=== PATIENT | female | born 1950 | race Caucasian/White ===

== ENCOUNTER → 2018-01-05 11:52 | Outpatient (CLI) | payer MEDICARE, SELFPAY ==
[2018-01-05 17:57] LABS: Basophils % 0.5 % (0.1-2.0); Eosinophils # 0.3 K/mm3 (0.0-0.4); Eosinophils % 4.2 % (0.1-12.0); Hematocrit 42.1 % (37.0-47.0); Hemoglobin 13.5 g/dL (12.2-16.2); Lymphocytes # 1.7 K/mm3 (0.7-4.5); Lymphocytes % 28.7 K/mm3 (10-50); Mean Corpuscular HGB Conc 32.1 g/dL (31.8-35.4); Mean Corpuscular Hemoglobin 29.5 pg (27.0-31.2); Mean Platelet Volume 9.7 fl (7.4-10.4); Monocytes # 0.6 K/mm3 (0.1-1.0); Monocytes % 9.5 % (1.7-9.3); Neutrophils # 3.5 K/mm3 (1.8-7.8); Platelet Count 282 K/mm3 (142-424); Red Blood Count 4.57 M/mm3 (4.20-5.40); Red Cell Distribution Width 13.2 % (11.5-17.5); White Blood Count 6.1 K/mm3 (4.8-10.8)
[2018-01-05 19:32] LABS: Erythrocyte Sedimentation Rate 24 mm/hr (0-30)
[2018-01-05 20:25] LABS: Alanine Aminotransferase 50 U/L (12-78); Albumin Level 4.2 gm/dL (3.4-5.0); Albumin/Globulin Ratio 1.2 (1.1-1.8); Alkaline Phosphatase 98 U/L (46-116); Anion Gap 12.1 mEq/L (5-15); Aspartate Amino Transferase 28 U/L (15-37); Bilirubin,Total 0.3 mg/dL (0.2-1.0); Blood Urea Nitrogen 22 mg/dL (7-18); C-Reactive Protein 0.6 mg/L (0.0-0.9); Carbon Dioxide 28 mmol/L (21.0-32.0); Chloride 102 mmol/L (98-107); Chol/HDL Ratio 6.3 (1-3.5); Cholesterol 279 mg/dL (140-200); Estimated Glomerular Filt Rate 55 ml/min (>60); Free T4 (Free Thyroxine) 0.97 ng/dl (0.76-1.46); GFR (African American) 67 ML/MIN (>60); Globulin 3.5 gm/dl (1.3-3.2); Glucose 160 mg/dL (74-106); HDL Cholesterol 44 mg/dL (29-89); LDL Cholesterol 161 mg/dL (0-130); Potassium 4.1 mmoL/L (3.5-5.1); Sodium 138 mmol/L (136-145); Thyroid Stimulating Hormone 1.59 uIU/ml (0.358-3.740); Total Protein,Serum 7.7 gm/dL (6.4-8.2); Triglycerides 369 mg/dL (30-200); VLDL Cholesterol 74 mg/dL (0-40)
[2018-01-08 09:48] LABS: RA Latex Turbid. <10.0 IU/mL (0.0-13.9)
[2018-01-08 11:11] LABS: Anti-Jo-1 <0.2 AI (0.0-0.9); Anti-Smith Antibody <0.2 AI (0.0-0.9); Antichromatin Antibodies <0.2 AI (0.0-0.9); Antiscleroderma-70 Antibodies <0.2 AI (0.0-0.9); RNP Antibodies <0.2 AI (0.0-0.9); Sjogren's Anti-SS-A <0.2 AI (0.0-0.9); Sjogren's Anti-SS-B <0.2 AI (0.0-0.9)
[2018-01-09 09:18] LABS: Anti-Centromere B Antibodies <0.2 AI (0.0-0.9); Anti-DNA (DS) Ab Qn 1 IU/mL (0-9)
[2018-01-11 08:02] LABS: Anti-Cyclic Citrullinated Pept 8 units (0-19)
== END ==
PROVIDERS: Visit Provider Emergency Medicine
DX: G62.9 Polyneuropathy, unspecified (principal); F32.9 Major depressive disorder, single episode, unspecified; I10 Essential (primary) hypertension
CPT/HCPCS: 80053; 80061; 84439; 84443; 85025; 85651; 86140; 86200; 86225; 86235; 86431

== ENCOUNTER → 2018-01-19 08:48 | Outpatient (CLI) | payer MEDICARE, SELFPAY ==
--- NOTE | 2018-01-19 08:51 | MR_ITS ---
MR lumbar spine wo con, MR 3-d myelogram/MRCP HISTORY: Back pain, weakness, tingling, and weakness. Symptoms XYrs. ITS.REASON: back pain ORDERING PHYSICIAN: Anoop Dalton MD PATIENT AGE: 67 years Comparison: MRI 12/26/16 TECHNIQUE: Standard multiplanar multiecho sequences are performed without contrast. 3-D MIP and myelographic images are also rendered and reviewed FINDINGS: Spinal cord ends at the T11-T12 level. T12-L1: There is very minimal central disc protrusion without impingement. L1-L2: Minimal broad-based right paracentral disc protrusion without impingement. L2-L3: Unremarkable. L3-L4: Mild facet and ligamentum flavum hypertrophy with mild bilateral foraminal narrowing. L4-5: 4 mm anterolisthesis of L4 with minimal bulging disc along with facet and ligamentum flavum hypertrophy with moderate bilateral foraminal narrowing L5-S1: Small concentric bulging disc with minimal broad-based left paracentral disc protrusion abutting the anteromedial aspect of the left S1 nerve root without displacement. IMPRESSION: 1. No disc herniation or canal stenosis 2. L3-L4: Mild facet and ligamentum flavum hypertrophy with mild bilateral foraminal narrowing not significant changed 3. L4-5: 4 mm anterolisthesis of L4 with minimal bulging disc along with facet and ligamentum flavum hypertrophy with moderate bilateral foraminal narrowing not significant changed 4. L5-S1: Small concentric bulging disc with minimal broad-based left paracentral disc protrusion abutting the anteromedial aspect of the left S1 nerve root without displacement. This is not readily apparent on previous exam IMPRESSION:
== END ==
PROVIDERS: Family Provider Emergency Medicine; PCP Emergency Medicine; Visit Provider Emergency Medicine
DX: M54.5 Low back pain (principal); G62.9 Polyneuropathy, unspecified
CPT/HCPCS: 72148; 76376

== ENCOUNTER → 2018-02-05 09:43 | Outpatient (CLI) | payer MEDICARE, OTHER, SELFPAY ==
--- NOTE | 2018-02-05 09:45 | FL_ITS ---
NH barium swallow Ordering Physician: Anoop Dalton MD Patient Age: 67 years: Female HISTORY: ITS.REASON: dysphagia dysphasia and vomiting 2 years. TECHNIQUE: A barium swallow performed with Dr. Mercedes mcdonald. At 1 minute 24 seconds fluoroscopy time COMPARISON :None FINDINGS Cervical esophagus. Good strength the swallowing mechanism. Mild cricopharyngeus muscle relaxes appropriately. Only minor anterior marginal osteophytes C5-C6 does not appear to be of significance. The patient describes restriction when she eats food at the lower cervical esophagus upper chest. This region fully distensible with no restricting, or restricting lesion. No AVN vessels impinging upon esophagus evident. Thoracic esophagus. There is a small sliding hiatal hernia which was exchanged with Valsalva maneuver. Schatzki ring yields only slight narrowing the esophageal lumen here at the esophagus Z line . Doubt significance but could yield some minor restriction with solid food Mild GE reflux noted towards into the study. IMPRESSION: 1. No lesions evident at the lower cervical or upper thoracic esophagus-where the patient reports her symptoms 2. Moderate cricopharyngeus muscle is noted, but relaxes appropriately and appears within normal limits Good strength of the swallowing mechanism cervical esophagus 3. Small slight hiatal hernia with moderate Schatzki ring 4. Scant distal GE reflux observed at end of study
== END ==
PROVIDERS: Family Provider Emergency Medicine; PCP Emergency Medicine; Visit Provider Emergency Medicine
DX: R13.10 Dysphagia, unspecified (principal)
CPT/HCPCS: 74220

== ENCOUNTER → 2018-06-22 18:15 | Outpatient (CLI) | payer MEDICARE, OTHER, SELFPAY ==
[2018-06-22 19:16] LABS: Alanine Aminotransferase 43 U/L (12-78); Albumin Level 4.2 gm/dL (3.4-5.0); Albumin/Globulin Ratio 1.2 (1.1-1.8); Alkaline Phosphatase 93 U/L (46-116); Anion Gap 15.5 mEq/L (5-15); Aspartate Amino Transferase 19 U/L (15-37); Bilirubin,Total 0.4 mg/dL (0.2-1.0); Blood Urea Nitrogen 19 mg/dL (7-18); Calcium 9.6 mg/dL (8.5-10.1); Carbon Dioxide 28 mmol/L (21.0-32.0); Chloride 101 mmol/L (98-107); Chol/HDL Ratio 6.1 (1-3.5); Cholesterol 299 mg/dL (140-200); Creatinine,Serum 0.97 mg/dL (0.55-1.02); Estimated Glomerular Filt Rate 57 ml/min (>60); Free T4 (Free Thyroxine) 0.94 ng/dl (0.76-1.46); GFR (African American) 69 ML/MIN (>60); Globulin 3.6 gm/dl (1.3-3.2); Glucose 170 mg/dL (74-106); HDL Cholesterol 49 mg/dL (29-89); Potassium 4.5 mmoL/L (3.5-5.1); Sodium 140 mmol/L (136-145); Thyroid Stimulating Hormone 1.59 uIU/ml (0.358-3.740); Total Protein,Serum 7.8 gm/dL (6.4-8.2)
[2018-06-22 19:20] LABS: Basophils % 0.5 % (0.1-2.0); Eosinophils # 0.2 K/mm3 (0.0-0.4); Eosinophils % 3.6 % (0.1-12.0); Hematocrit 39.8 % (37.0-47.0); Hemoglobin 13.5 g/dL (12.2-16.2); Lymphocytes # 1.5 K/mm3 (0.7-4.5); Lymphocytes % 26.4 % (10-50); Mean Corpuscular Hemoglobin 31.6 pg (27.0-31.2); Mean Corpuscular Volume 93.2 fl (81-99); Mean Platelet Volume 9.3 fl (7.4-10.4); Monocytes # 0.5 K/mm3 (0.1-1.0); Monocytes % 8.3 % (1.7-9.3); Neutrophils # 3.5 K/mm3 (1.8-7.8); Neutrophils % 61.1 % (37.0-80.0); Platelet Count 313 K/mm3 (142-424); Red Blood Count 4.27 M/mm3 (4.20-5.40); Red Cell Distribution Width 13.3 % (11.5-17.5); White Blood Count 5.8 K/mm3 (4.8-10.8)
[2018-06-22 19:38] LABS: Triglycerides 442 mg/dL (30-200)
[2018-06-25 14:00] LABS: Vitamin D 25 Hydroxy 15.7 ng/mL (30.0-100.0)
== END ==
PROVIDERS: Visit Provider Emergency Medicine
DX: I10 Essential (primary) hypertension (principal)
CPT/HCPCS: 80053; 80061; 82652; 84439; 84443; 85025

== ENCOUNTER → 2018-06-30 08:49 | Outpatient (CLI) | payer MEDICARE, OTHER, SELFPAY ==
[2018-06-30 09:45] LABS: Hemoglobin A1C 6.6 % (0.0-7.0)
== END ==
PROVIDERS: Visit Provider Physician Assistant
DX: R73.9 Hyperglycemia, unspecified (principal)
CPT/HCPCS: 36415; 83036

== ENCOUNTER 2018-10-17 08:32 | Inpatient (IN) ==
--- NOTE | 2018-10-17 09:02 | Emergency Department Note ---
ED Disposition Instructions: DI for Diarrhea and Traveler's Diarrhea -- Adult, DI for Diarrhea and Traveler's Diarrhea -- Child, DI for Nausea -- Adult, DI for Nausea -- Child Referrals: Anoop Dalton MD [Primary Care Provider] - Attestation: On 10/17/18, the high probability of a clinically significant, sudden or life threatening deterioration of the following system(s) required my full and direct attention, intervention and personal management. The time I documented below is in addition to time spent performing reported procedures but includes the following listed in this critical care notation. Medical Decision Making - Abelardo Inquiry Pt receiving controlled substance: Yes Abelardo was queried for this patient: Yes Reference #:: [id number] Vital Signs: 10/17/18 08:47 10/17/18 08:53 10/17/18 09:03 Temperature 98.3 F Temperature Source Oral Pulse Rate [Left Apical] 75 86 74 Respiratory Rate 18 Blood Pressure [Right Arm] 161/90 H 150/86 H Blood Pressure Mean [Right Arm] 113 107 Blood Pressure Source [Right Arm] Automatic Cuff Blood Pressure Position [Right Arm] 02 Sat by Pulse Oximetry 95 92 L 93 L Oxygen Delivery Method Room Air Room Air Room Air 10/17/18 09:34 Temperature Temperature Source Pulse Rate [Left Apical] 86 Respiratory Rate Blood Pressure [Right Arm] 174/107 H Blood Pressure Mean [Right Arm] 129 Blood Pressure Source [Right Arm] Automatic Cuff Blood Pressure Position [Right Arm] Sitting 02 Sat by Pulse Oximetry 93 L Oxygen Delivery Method Room Air - Lab Data Lab Results 10/17/18 08:43: WBC 11.0 H, RBC 3.92 L, Hgb 12.5, Hct 35.1 L, MCV 89.7, MCH 31.8 H, MCHC 35.5 H, RDW 13.1, Plt Count 315, MPV 7.9, Neut % (Auto) 75.4, Lymph % (Auto) 15.2, [place] % (Auto) 6.8, Eos % (Auto) 2.3, Baso % (Auto) 0.4, Neut # (Auto) 8.3 H, Lymph # (Auto) 1.7, [place] # (Auto) 0.8, Eos # (Auto) 0.3, Baso # (Auto) 0.0 10/17/18 08:43: Sodium 135 L, Potassium 3.6, Chloride 97 L, Carbon Dioxide 28, Anion Gap 13.6, BUN 12 D, Creatinine 0.97, Estimated Creat Clear 72, Estimated GFR 57 L, Est GFR ( Amer) 69 D, Glucose 168 H, Calcium 9.0, Total Bilirubin 0.4, AST 139 H, ALT 179 H, Alkaline Phosphatase 144 H, Total Protein 8.0, Albumin 3.4, Globulin 4.6 H, Albumin/Globulin Ratio 0.7 L Result diagrams: 10/17/18 08:43 10/17/18 08:43 Orders (Tests/Meds): ED MEDICATIONS Generic Name Dose Route Start Last Admin Trade Name Freq PRN Reason Stop Dose Admin Vancomycin HCl 1,500 mg/ 250 mls @ 125 mls/hr 10/17/18 09:30 10/17/18 09:44 Sodium Chloride IV 10/31/18 09:29 125 mls/hr 0900 MICHELLE Administration Miscellaneous 1 each 10/17/18 09:15 10/17/18 09:20 Vancomycin Consult Request NOTAPPLIC 10/17/18 21:12 1 each CONSULT PHARMACY MICHELLE Administration Discontinued Medications Generic Name Dose Route Start Last Admin Trade Name Freq PRN Reason Stop Dose Admin Sodium Chloride 1,000 mls @ 999 mls/hr 10/17/18 09:00 10/17/18 09:00 Sod Chlor 0.9% 1000ml Bag IV 10/17/18 10:00 999 mls/hr .Q1H1M MICHELLE Administration Lidocaine/Epinephrine 10 ml 10/17/18 09:11 10/17/18 09:28 Lidocaine 2% W/Epi 1:100,000 20ml Vial IJ 10/17/18 09:12 10 ml ONCE ONE Administration Morphine Sulfate 4 mg 10/17/18 10:12 Morphine 4mg/Ml Syringe IV 10/17/18 10:13 ONCE ONE Ondansetron HCl 4 mg 10/17/18 08:54 10/17/18 09:00 Zofran 4mg/2ml Vial IV 10/17/18 08:55 4 mg ONCE ONE Administration ORDERS Category Date Time Status CT abdomen pelvis w con Stat Cat Scan 10/17/18 10:13 Ordered Wound Culture and Gram Stain Stat Micro 10/17/18 09:15 Results - Physician Consults Physician Consulted: Kerrie Wilson NP for Dr. Dalton Time: 10:21 Reason -: Admission General Adult HPI - General Chief complaint: Nausea/Vomiting/Diarrhea Stated complaint: vomiting Time Seen by Provider: 10/17/18 09:02 Mode of Arrival: Ambulatory Limitations: No Limitations Description of Symptoms (Recalled from ER Triage Doc. by RN): PT arrived to the ED with c/o N/V since monday. Pt states that she saw Dr. Dalton here monday morning for cellulitis on the L side of her face. Pt was given Bactrim an d Keflex, ever since she started taking them she has been nauseated and vomiting. - History of Present Illness HPI narrative: Seen here in the emergency department by Dr. Dalton on Monday for cellulitis of her face and the left preauricular area. Started on Keflex and Bactrim and Bactroban, has gotten worse. The area is more painful and swollen. She has been running a low-grade fever, temperature not taken. She began vomiting on Monday and has not been able to hold down medications or food. - Related Data Home Medications Medication Instructions Recorded Confirmed Atorvastatin Calcium [Atorvastatin 20 mg PO QHS 10/15/18 10/17/18 20mg Tab] Cholecalciferol (Vitamin D3) 1,000 unit PO DAILY 10/15/18 10/17/18 [Vitamin D3 1,000 Unit Cap] Ergocalciferol (Vitamin D2) 50,000 unit PO WEEKLY 10/15/18 10/17/18 [Drisdol] Escitalopram Oxalate 20 mg PO DAILY 10/15/18 10/17/18 Lisinopril/Hydrochlorothiazide 1 tab PO DAILY 10/15/18 10/17/18 [Lisinopril-Hctz 20-25 mg Tab] Pregabalin [Lyrica] 150 mg PO BID 10/15/18 10/17/18 Mupirocin [Bactroban 2% Ointment 1 applicatio TP BID 10/17/18 10/17/18 22gm tube] Sulfamethoxazole/Trimethoprim 1 each PO BID 10/17/18 10/17/18 [Bactrim DS tablet] cephALEXin [Keflex 500mg Cap] 500 mg PO TID 10/17/18 10/17/18 Previous Rx's Medication Instructions Recorded diclofenac 1 % topical gel 4 g TOPICAL QID #30 g 12/22/17 Allergies Allergy/AdvReac Type Severity Reaction Status Date / Time No Known Drug Allergies Allergy Unknown Verified 07/23/18 13:28 [NKDA] [facility] History - Hepatitis A Screen Drug use history?: No High risk sexual behaviors?: No History of sexually transmitted infection?: No Currently employed?: No Childcare worker?: No Do you have indoor plumbing?: Yes Do you have electricity?: Yes Attestation statement:: This patient has been screened for Hepatitis A risk factors. I have reviewed the patient's past medical history: Yes 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: Reports:: Depression, Gastroesophageal Reflux Disease(GERD), Hypertension Denies:: Diabetes Mellitus Type 1, Diabetes Mellitus Type 2, MRSA Other 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: Reports: Arthritis Other Surgeries: Yes: Cholecystectomy, Hysterectomy-Partial Amputation: No Fractures: No - Social History Smoking Status: Never smoker Tobacco Type: cigarettes Alcohol Intake: never Alcohol Intake Frequency:: other Substance Use Type: denies use Occupational Status: retired Housing: house Household Members: spouse, family - Psychiatric History Expresses thoughts of harming self/others: None Suicide Plan Description: No Plan Pschychiatric History:: Reports:: Depression Family Hx:: Cancer ROS Obtained: Yes All systems reviewed & no additional complaints - Constitutional Constitutional: Reports fever(s) - Cardiovascular Cardiovascular: Denies chest pain - Respiratory Respiratory: No dyspnea - Gastrointestinal Gastrointestingal: Reports: abdominal pain, nausea, vomiting. Denies: diarrhea - Integumentary/Breasts Skin/Breast: Reports as per HPI Physical Exam - General General appearance: alert, in no apparent distress - Head Head exam: atraumatic, normocephalic - Eye Eye exam: Present: normal appearance, PERRL, EOMI - Expanded ENT Exam Comment: Cutaneous abscess in the region of her left zygomatic arch. Small scab present centrally, but no spontaneous drainage. Fluctuance present, approximately 3 cm diameter. Surrounding cellulitis approximately 10 cm diameter. Tenderness present. - Neck Neck exam: Present: normal inspection, full ROM. Absent: meningismus - Chest Chest inspection: Present: normal inspection, symmetric chest wall rise - Respiratory Respiratory exam: Present: normal lung sounds bilaterally. Absent: respiratory distress - Cardiovascular Cardiovascular exam: Present: regular rate, normal rhythm, normal heart sounds - Abdominal Exam Abdominal exam: Present: soft, tenderness. Absent: distention, guarding, rebound, rigidity Abdominal tenderness: Present: diffuse - Extremities Exam Extremities exam: Present: normal inspection - Neurological Exam Neurological exam: Present: alert, oriented X3, CN II-XII intact. Absent: motor sensory deficit - Psychiatric Psychiatric exam: Present: normal affect, normal mood - Skin Skin exam: Present: warm, dry Procedures - Miscellaneous Procedure Procedure Performed: Incision/Drainage Performed by: ERENDIRA BUCKNER Type: abscess Location: Face Anesthesia: local infiltration Local anesthetic: lidocaine 2% with epinephrine Patient sedated: no Scalpel size: 11 Incision type: single straight Complexity: simple Drainage: purulent Drainage amount: Large amount Wound treatment: probed for loculations. wound left open Packin/4 inch Culture: Yes Patient tolerance: Patient tolerated the procedure well with no immediate complications
[2018-10-17 09:08] LABS: Basophils % 0.4 % (0.1-2.0); Eosinophils # 0.3 K/mm3 (0.0-0.4); Eosinophils % 2.3 % (0.1-12.0); Hematocrit 35.1 % (37.0-47.0); Hemoglobin 12.5 g/dL (12.2-16.2); Lymphocytes # 1.7 K/mm3 (0.7-4.5); Lymphocytes % 15.2 % (10-50); Mean Corpuscular HGB Conc 35.5 g/dL (31.8-35.4); Mean Corpuscular Hemoglobin 31.8 pg (27.0-31.2); Mean Corpuscular Volume 89.7 fl (81-99); Mean Platelet Volume 7.9 fl (7.4-10.4); Monocytes # 0.8 K/mm3 (0.1-1.0); Monocytes % 6.8 % (1.7-9.3); Neutrophils # 8.3 K/mm3 (1.8-7.8); Neutrophils % 75.4 % (37.0-80.0); Platelet Count 315 K/mm3 (142-424); Red Blood Count 3.92 M/mm3 (4.20-5.40); Red Cell Distribution Width 13.1 % (11.5-17.5)
[2018-10-17 09:17] LABS: Albumin Level 3.4 gm/dL (3.4-5.0); Albumin/Globulin Ratio 0.7 (1.1-1.8); Anion Gap 13.6 mEq/L (5-15); Bilirubin,Total 0.4 mg/dL (0.2-1.0); Globulin 4.6 gm/dl (1.3-3.2); Potassium 3.6 mmoL/L (3.5-5.1)
--- NOTE | 2018-10-17 10:30 | Emergency Department Note ---
ED Disposition Clinical Impression: Facial abscess, Facial cellulitis, Elevated liver enzymes Vomiting Qualifiers: Vomiting type: unspecified Vomiting Intractability: intractable Nausea presence: with nausea Qualified Code(s): R11.2 - Nausea with vomiting, unspecified Abdominal pain Qualifiers: Abdominal location: generalized Qualified Code(s): R10.84 - Generalized abdominal pain Disposition: Admitted as Observation Condition on Discharge: [facility] - Critical Care Critical Care Time: No Attestation: On 10/17/18, the high probability of a clinically significant, sudden or life threatening deterioration of the following system(s) required my full and direct attention, intervention and personal management. The time I documented below is in addition to time spent performing reported procedures but includes the following listed in this critical care notation. Medical Decision Making - Abelardo Inquiry Pt receiving controlled substance: Yes Abelardo was queried for this patient: Yes Reference #:: [id number] Risks and benefits of using a controlled substance: were not discussed with pt by me Comment: 12 rxs, mostly lyrica Vital Signs: 10/17/18 08:47 10/17/18 08:53 10/17/18 09:03 Temperature 98.3 F Temperature Source Oral Pulse Rate [Left Apical] 75 86 74 Respiratory Rate 18 Blood Pressure [Right Arm] 161/90 H 150/86 H Blood Pressure Mean [Right Arm] 113 107 Blood Pressure Source [Right Arm] Automatic Cuff Blood Pressure Position [Right Arm] 02 Sat by Pulse Oximetry 95 92 L 93 L Oxygen Delivery Method Room Air Room Air Room Air 10/17/18 09:34 10/17/18 10:29 10/17/18 11:25 Temperature Temperature Source Pulse Rate [Left Apical] 86 71 77 Respiratory Rate 14 Blood Pressure [Right Arm] 174/107 H 141/79 H 136/72 Blood Pressure Mean [Right Arm] 129 99 93 Blood Pressure Source [Right Arm] Automatic Cuff Automatic Cuff Automatic Cuff Blood Pressure Position [Right Arm] Sitting Supine 02 Sat by Pulse Oximetry 93 L 93 L 96 Oxygen Delivery Method Room Air Room Air Room Air 10/17/18 11:52 Temperature Temperature Source Pulse Rate [Left Apical] 81 Respiratory Rate Blood Pressure [Right Arm] 136/74 Blood Pressure Mean [Right Arm] 94 Blood Pressure Source [Right Arm] Automatic Cuff Blood Pressure Position [Right Arm] Sitting 02 Sat by Pulse Oximetry 94 L Oxygen Delivery Method Room Air - Lab Data Lab Results 10/17/18 08:43: WBC 11.0 H, RBC 3.92 L, Hgb 12.5, Hct 35.1 L, MCV 89.7, MCH 31.8 H, MCHC 35.5 H, RDW 13.1, Plt Count 315, MPV 7.9, Neut % (Auto) 75.4, Lymph % (Auto) 15.2, [place] % (Auto) 6.8, Eos % (Auto) 2.3, Baso % (Auto) 0.4, Neut # (Auto) 8.3 H, Lymph # (Auto) 1.7, [place] # (Auto) 0.8, Eos # (Auto) 0.3, Baso # (Auto) 0.0 10/17/18 08:43: Sodium 135 L, Potassium 3.6, Chloride 97 L, Carbon Dioxide 28, Anion Gap 13.6, BUN 12 D, Creatinine 0.97, Estimated Creat Clear 72, Estimated GFR 57 L, Est GFR ( Amer) 69 D, Glucose 168 H, Calcium 9.0, Total Bilirubin 0.4, AST 139 H, ALT 179 H, Alkaline Phosphatase 144 H, Total Protein 8.0, Albumin 3.4, Globulin 4.6 H, Albumin/Globulin Ratio 0.7 L Result diagrams: 10/17/18 08:43 10/17/18 08:43 Orders (Tests/Meds): ED MEDICATIONS Generic Name Dose Route Start Last Admin Trade Name Freq PRN Reason Stop Dose Admin Vancomycin HCl 1,500 mg/ 250 mls @ 125 mls/hr 10/17/18 09:30 10/17/18 09:44 Sodium Chloride IV 10/31/18 09:29 125 mls/hr 0900 MICHELLE Administration Miscellaneous 1 each 10/17/18 09:15 10/17/18 09:20 Vancomycin Consult Request NOTAPPLIC 10/17/18 21:12 1 each CONSULT PHARMACY MICHELLE Administration Discontinued Medications Generic Name Dose Route Start Last Admin Trade Name Freq PRN Reason Stop Dose Admin Sodium Chloride 1,000 mls @ 999 mls/hr 10/17/18 09:00 10/17/18 09:00 Sod Chlor 0.9% 1000ml Bag IV 10/17/18 10:00 999 mls/hr .Q1H1M MICHELLE Administration Lidocaine/Epinephrine 10 ml 10/17/18 09:11 10/17/18 09:28 Lidocaine 2% W/Epi 1:100,000 20ml Vial IJ 10/17/18 09:12 10 ml ONCE ONE Administration Morphine Sulfate 4 mg 10/17/18 10:12 10/17/18 10:21 Morphine 4mg/Ml Syringe IV 10/17/18 10:13 4 mg ONCE ONE Administration Ondansetron HCl 4 mg 10/17/18 08:54 10/17/18 09:00 Zofran 4mg/2ml Vial IV 10/17/18 08:55 4 mg ONCE ONE Administration ORDERS Category Date Time Status Hepatitis Panel (4) Stat Lab 10/17/18 08:43 Received Wound Culture and Gram Stain Stat Micro 10/17/18 09:15 Results - CT Data CT Scan: Abdomen, Pelvis Time Received: 11:[address] Reviewed: Yes: I have viewed the radiologist's interpretation Findings Narrative: IMPRESSION: 1. Diffuse hepatic steatosis 2. Moderate-sized sliding hiatal hernia 3. Mild diverticulosis of the sigmoid colon without diverticulitis Dictated By: Omar Archuleta Signed By: <Electronically signed by Omar Archuleta in OV> 10/17/18 1148 - Physician Consults Physician Consulted: Kerrie Wilson NP for Dr. Dalton Time: 10:27 Reason -: Admission Comment/Response: Agrees to admit the patient to the hospital. We discussed the patient's clinical information, including history, exam, laboratory and radiology results and ED course. Per hospital procedure, I will write temporary bridge inpatient orders on the patient. Specific orders requested by the admitting physician: Vancomycin, IV fluids, nausea medication, hepatitis profile Additional Consult: Lino Time: 11:12 Reason -: ENT Eval/Care Comment/Response: He will see patient tomorrow Medical Decision Narrative: Dr. Dalton also requests ENT consult with Dr. Huynh. General Adult HPI - General Chief complaint: Nausea/Vomiting/Diarrhea Stated complaint: vomiting Time Seen by Provider: 10/17/18 09:02 Mode of Arrival: Ambulatory Limitations: No Limitations Description of Symptoms (Recalled from ER Triage Doc. by RN): PT arrived to the ED with c/o N/V since monday. Pt states that she saw Dr. Dalton here monday morning for cellulitis on the L side of her face. Pt was given Bactrim and Keflex, ever since she started taking them she has been nauseated and vomiting. - History of Present Illness HPI narrative: The patient was seen here on Monday, 2 days ago, by Dr. Dalton in the emergency department and diagnosed with cellulitis of her face. Started on Bactrim, Keflex, and Bactroban. Since discharge from the emergency department she has had intractable vomiting. She has generalized abdominal pain. She has had a fever. Her face is getting worse, more painful and swollen. No drainage noted. - Related Data Home Medications Medication Instructions Recorded Confirmed Atorvastatin Calcium [Atorvastatin 20 mg PO HS 10/15/18 10/17/18 20mg Tab] Cholecalciferol (Vitamin D3) 1,000 unit PO DAILY 10/15/18 10/17/18 [Vitamin D3 1,000 Unit Cap] Ergocalciferol (Vitamin D2) 50,000 unit PO WEEKLY 10/15/18 10/17/18 [Drisdol] Escitalopram Oxalate 20 mg PO DAILY 10/15/18 10/17/18 Lisinopril/Hydrochlorothiazide 1 tab PO DAILY 10/15/18 10/17/18 [Lisinopril-Hctz 20-25 mg Tab] Pregabalin [Lyrica] 150 mg PO BID 10/15/18 10/17/18 Mupirocin [Bactroban 2% Ointment 1 applicatio TP BID 10/17/18 10/17/18 22gm tube] Sulfamethoxazole/Trimethoprim 1 each PO BID 10/17/18 10/17/18 [Bactrim DS tablet] cephALEXin [Keflex 500mg Cap] 500 mg PO TID 10/17/18 10/17/18 Allergies Allergy/AdvReac Type Severity Reaction Status Date / Time No Known Drug Allergies Allergy Unknown Verified 07/23/18 13:28 [NKDA] [facility] History - Hepatitis A Screen Drug use history?: No High risk sexual behaviors?: No History of sexually transmitted infection?: No Currently employed?: No Childcare worker?: No Do you have indoor plumbing?: Yes Do you have electricity?: Yes Attestation statement:: This patient has been screened for Hepatitis A risk factors. I have reviewed the patient's past medical history: Yes 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: Reports:: Depression, Gastroesophageal Reflux Disease(GERD), Hypertension Denies:: Diabetes Mellitus Type 1, Diabetes Mellitus Type 2, MRSA Other 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: Reports: Arthritis Other Surgeries: Yes: Cholecystectomy, Hysterectomy-Partial Amputation: No Fractures: No - Social History Smoking Status: Never smoker Tobacco Type: cigarettes Alcohol Intake: never Alcohol Intake Frequency:: other Substance Use Type: denies use Occupational Status: retired Housing: house Household Members: spouse, family - Psychiatric History Expresses thoughts of harming self/others: None Suicide Plan Description: No Plan Pschychiatric History:: Reports:: Depression Family Hx:: Cancer ROS Obtained: Yes All systems reviewed & no additional complaints - Constitutional Constitutional: Reports fever(s) - Cardiovascular Cardiovascular: Denies chest pain - Respiratory Respiratory: No dyspnea - Gastrointestinal Gastrointestingal: Reports: abdominal pain, nausea, vomiting. Denies: diarrhea - Integumentary/Breasts Skin/Breast: Reports as per HPI Physical Exam - General General appearance: alert, in no apparent distress - Head Head exam: atraumatic, normocephalic, normal inspection - Eye Eye exam: Present: normal appearance, PERRL, EOMI - ENT ENT exam: Present: mucous membranes moist - Expanded ENT Exam Comment: 3 cm fluctuant abscess left preauricular area above the zygomatic arch. Scab present centrally, but no drainage. Surrounding cellulitis 10 cm diameter. Tenderness present. - Neck Neck exam: Present: normal inspection, full ROM, trachea midline. Absent: meningismus, lymphadenopathy - Chest Chest inspection: Present: normal inspection, symmetric chest wall rise - Respiratory Respiratory exam: Present: normal lung sounds bilaterally. Absent: respiratory distress - Cardiovascular Cardiovascular exam: Present: regular rate, normal rhythm. Absent: JVD - Abdominal Exam Abdominal exam: Present: soft, tenderness, normal bowel sounds. Absent: distention, guarding, rebound, rigidity Abdominal tenderness: Present: diffuse - Extremities Exam Extremities exam: Present: normal inspection, full ROM, normal capillary refill. Absent: calf tenderness - Back Exam Back exam: Present: normal inspection. Absent: tenderness - Neurological Exam Neurological exam: Present: alert, oriented X3 - Psychiatric Psychiatric exam: Present: normal affect, normal mood - Skin Skin exam: Present: warm, dry, intact, normal color - Lymphatic Lymphatic Findings: no adenopathy Procedures - Miscellaneous Procedure Procedure Performed: Incision/Drainage Performed by: ERENDIRA BCUKNER Type: abscess Location: Face Anesthesia: local infiltration Local anesthetic: lidocaine 2% with epinephrine Patient sedated: no Scalpel size: 11 Incision type: single straight Complexity: simple Drainage: purulent Drainage amount: Large Wound treatment: probed for loculations. wound left open Packin/4 inch Culture: Yes Patient tolerance: Patient tolerated the procedure well with no immediate complications
--- NOTE | 2018-10-17 11:10 | Pharmacy Consult Notes ---
[facility] Pharmacy VTE Monitoring - Patient Demographics Admission date: 10/17/18 Report Date: 10/17/18 Time: 11:10 Allergies/Adverse Reactions: Patient Allergies No Known Drug Allergies [NKDA] Allergy (Unknown, Verified 07/23/18 13:28) Height: 1.55 m Weight: 83.461 kg Patient Problems: Current Active Problems (Last Updated 06/25/18 @ 16:12 by VIRIDIANA Metzger) Facial abscess (Acute) Facial cellulitis (Acute) Vomiting (Acute) Abdominal pain (Acute) Elevated liver enzymes (Acute) - VTE Risk Labs: VTE Related Lab Results Hgb 12.5 g/dL (12.2-16.2) 10/17/18 08:43 Hct 35.1 % (37.0-47.0) L 10/17/18 08:43 Plt Count 315 K/mm3 (142-424) 10/17/18 08:43 BUN 12 mg/dL (7-18) D 10/17/18 08:43 Creatinine 0.97 mg/dL (0.55-1.02) 10/17/18 08:43 Estimated Creat Clear 72 mL/min (50-200) 10/17/18 08:43 - Prophylaxis VTE Prophylaxis Ordered?: Yes Types of VTE Prophylaxis: TEDS Knee High - VTE Diagnosis Confirmed Treatment or plan recommended: Continue Current Treatment
--- NOTE | 2018-10-17 11:20 | Pharmacy Consult Notes ---
- Pharmacy Consult Date: 10/17/18 Time: 11:19 Referring provider: DR. NAVA Reason for Consult:: VANCOMYCIN DOSING Allergies and ADEs:: Allergies Allergy/AdvReac Type Severity Reaction Status Date / Time No Known Drug Allergies Allergy Unknown Verified 07/23/18 13:28 [NKDA] Home Medications:: Home Medications Medication Instructions Recorded Confirmed Type Atorvastatin Calcium [Atorvastatin 20 mg PO HS 10/15/18 10/17/18 History 20mg Tab] Cholecalciferol (Vitamin D3) 1,000 unit PO DAILY 10/15/18 10/17/18 History [Vitamin D3 1,000 Unit Cap] Ergocalciferol (Vitamin D2) 50,000 unit PO WEEKLY 10/15/18 10/17/18 History [Drisdol] Escitalopram Oxalate 20 mg PO DAILY 10/15/18 10/17/18 History Lisinopril/Hydrochlorothiazide 1 tab PO DAILY 10/15/18 10/17/18 History [Lisinopril-Hctz 20-25 mg Tab] Pregabalin [Lyrica] 150 mg PO BID 10/15/18 10/17/18 History Mupirocin [Bactroban 2% Ointment 1 applicatio TP BID 10/17/18 10/17/18 History 22gm tube] Sulfamethoxazole/Trimethoprim 1 each PO BID 10/17/18 10/17/18 History [Bactrim DS tablet] cephALEXin [Keflex 500mg Cap] 500 mg PO TID 10/17/18 10/17/18 History Height: 1.55 m Weight: 83.461 kg Laboratory Results:: Laboratory Results - last 24 hr 10/17/18 08:43: WBC 11.0 H, RBC 3.92 L, Hgb 12.5, Hct 35.1 L, MCV 89.7, MCH 31.8 H, MCHC 35.5 H, RDW 13.1, Plt Count 315, MPV 7.9, Neut % (Auto) 75.4, Lymph % (Auto) 15.2, [place] % (Auto) 6.8, Eos % (Auto) 2.3, Baso % (Auto) 0.4, Neut # (Auto) 8.3 H, Lymph # (Auto) 1.7, [place] # (Auto) 0.8, Eos # (Auto) 0.3, Baso # (Auto) 0.0 10/17/18 08:43: Sodium 135 L, Potassium 3.6, Chloride 97 L, Carbon Dioxide 28, Anion Gap 13.6, BUN 12 D, Creatinine 0.97, Estimated Creat Clear 72, Estimated GFR 57 L, Est GFR ( Amer) 69 D, Glucose 168 H, Calcium 9.0, Total Bilirubin 0.4, AST 139 H, ALT 179 H, Alkaline Phosphatase 144 H, Total Protein 8.0, Albumin 3.4, Globulin 4.6 H, Albumin/Globulin Ratio 0.7 L 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: Reports:: Depression, Gastroesophageal Reflux Disease(GERD), Hypertension Denies:: Diabetes Mellitus Type 1, Diabetes Mellitus Type 2, MRSA Assessment and Plan - Assessment and plan all Dx Assessment and Plan for all problems:: BASED ON PATIENT'S FACTORS, RECOMMEND STARTING WITH VANCOMYCIN 1500 MG Q24H AT THIS TIME. PHARMACY WILL FOLLOW DAILY AND ADJUST APPROPRIATE. DEZ SULLIVAN, PHARMD
--- NOTE | 2018-10-18 07:43 | History & Physical Report ---
*Admission Date: 10/17/18 *Chief complaint: Left facial abscess *History of present illness: 68-year-old white female, patient of Dr. Dalton, who was treated in the outpatient setting 3 days ago for a left maxillary/zygomatic arch area facial abscess with Keflex and Bactrim but unfortunately even with adequate p.o. antibiotic therapy failed to improve. Came back to the emergency department early yesterday morning, found to have worsening redness and swelling, fluctuant area was drained by the ER physician, and she was admitted for further testing, ENT consultation and IV antibiotics. This morning she feels improved and has no significant complaints except for mild pain around the abscess site. [facility] History I have reviewed the patient's past medical history: Yes 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: Reports:: Depression, Gastroesophageal Reflux Disease(GERD), Hyperlipidemia, Hypertension Denies:: Cancer, Diabetes Mellitus Type 1, Diabetes Mellitus Type 2, MRSA *Have you ever received a pneumonia vaccine?: No *Have you received a flu vaccine this season?: Yes Other 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: Reports: Arthritis Other Surgeries: Yes: Cholecystectomy, Hysterectomy-Partial Amputation: No Fractures: No - *Social History Smoking Status: Never smoker Tobacco Type: cigarettes Alcohol Intake: never Alcohol Intake Frequency:: other Substance Use Type: denies use *Occupational Status:: retired Housing: house Household Members: spouse, family *Travel in the last 8 weeks: None - Psychiatric History Expresses thoughts of harming self/others: None Suicide Plan Description: No Plan Pschychiatric History:: Reports:: Depression Family Hx:: Cancer, Stroke Review of Systems - Review of Systems Review of systems:: pertinent systems reviewed and negative unless documented below - Constitutional Denies anorexia, Denies body ache(s) - Eyes Denies blind spots, Denies blurry vision, Denies change in vision - ENT Denies abnormal hearing - *Cardiovascular Denies chest pain, Denies chest pain at rest, Denies chest pain with activity - *Respiratory Denies change in phlegm color, Denies chest congestion - *Gastrointestinal Denies abdominal pain, Denies belching, Denies bloating - *Musculoskeletal Denies abnormal walking - Integumentary/Breasts Denies acne, Denies hair loss - *Neurologic Denies abnormal walking, Denies abnormal hearing - Endocrine Denies cold intolerance - Hematologic/Lymphatic Denies easy bleeding Meds Home Medications Medication Instructions Recorded Confirmed Type Atorvastatin Calcium [Atorvastatin 20 mg PO HS 10/15/18 10/17/18 History 20mg Tab] Cholecalciferol (Vitamin D3) 1,000 unit PO DAILY 10/15/18 10/17/18 History [Vitamin D3 1,000 Unit Cap] Ergocalciferol (Vitamin D2) 50,000 unit PO WEEKLY 10/15/18 10/17/18 History [Drisdol] Escitalopram Oxalate 20 mg PO DAILY 10/15/18 10/17/18 History Lisinopril/Hydrochlorothiazide 1 tab PO DAILY 10/15/18 10/17/18 History [Lisinopril-Hctz 20-25 mg Tab] Pregabalin [Lyrica] 150 mg PO BID 10/15/18 10/17/18 History Mupirocin [Bactroban 2% Ointment 1 applicatio TP BID 10/17/18 10/17/18 History 22gm tube] Sulfamethoxazole/Trimethoprim 1 each PO BID 10/17/18 10/17/18 History [Bactrim DS tablet] cephALEXin [Keflex 500mg Cap] 500 mg PO TID 10/17/18 10/17/18 History Allergies Allergy/AdvReac Type Severity Reaction Status Date / Time No Known Drug Allergies Allergy Unknown Verified 07/23/18 13:28 [NKDA] Exam Vital signs and Labs for Last 24 Hours: Temp Pulse Resp BP Pulse Ox 98.2 F 77 16 115/63 96 10/18/18 04:00 10/18/18 04:00 10/18/18 04:00 10/18/18 04:00 10/18/18 04:00 Laboratory Results - last 24 hr 10/17/18 08:43: WBC 11.0 H, RBC 3.92 L, Hgb 12.5, Hct 35.1 L, MCV 89.7, MCH 31.8 H, MCHC 35.5 H, RDW 13.1, Plt Count 315, MPV 7.9, Neut % (Auto) 75.4, Lymph % (Auto) 15.2, [place] % (Auto) 6.8, Eos % (Auto) 2.3, Baso % (Auto) 0.4, Neut # (Auto) 8.3 H, Lymph # (Auto) 1.7, [place] # (Auto) 0.8, Eos # (Auto) 0.3, Baso # (Auto) 0.0 10/17/18 08:43: Sodium 135 L, Potassium 3.6, Chloride 97 L, Carbon Dioxide 28, Anion Gap 13.6, BUN 12 D, Creatinine 0.97, Estimated Creat Clear 72, Estimated GFR 57 L, Est GFR ( Amer) 69 D, Glucose 168 H, Calcium 9.0, Total Bilirubin 0.4, AST 139 H, ALT 179 H, Alkaline Phosphatase 144 H, Total Protein 8.0, Albumin 3.4, Globulin 4.6 H, Albumin/Globulin Ratio 0.7 L I & O for Last 24 hours: Intake & Output 10/15/18 10/16/18 10/17/18 10/18/18 11:59 11:59 11:59 11:59 Intake Total 1686 / 1686 Balance 1686 / 1686 Weight 184 lb Microbiology Reports for the Last 24 Hours: Microbiology 10/17/18 09:15 Face Gram Stain - Final 10/17/18 09:15 Face Wound Culture - Preliminary Gram Positive Cocci Narrative: Patient is pleasant, talkative, alert, oriented x3. ENT exam shows packed abscess with iodoform gauze and a small open lesion on the zygomatic arch. There is a 2 cm area of surrounding redness but no fluctuance noted. The actual helix and tragus of the ear are not involved. The red area is much smaller than the demarcated area from the ER from 24 hours ago. Extraocular motions are intact. Pupillary reactivity is normal. Oropharynx is clear with no lesions. Heart rate regular. Abdomen soft, lungs are clear bilaterally. Excellent movement of all extremities. Cranial nerves are intact. Assessment and Plan (1) Facial abscess Current visit: Yes Status: Acute Category: Medical Code(s): L02.01 - Cutaneous abscess of face Patient on good antibiotics at this point. Awaiting formal culture. (2) Facial cellulitis Current visit: Yes Status: Acute Category: Medical Code(s): L03.211 - Cellulitis of face Overall symptoms seem to be improving. ENT consultation to see if wider debridement is needed. CT scan of area today to make sure other facial/cranial areas are not involved.
--- NOTE | 2018-10-18 13:29 | Consult Report ---
*Admission Date: 10/17/18 *Chief complaint: left facial abscess *History of present illness: same Review of Systems - ENT Reports other Comments: left face swelling/abscess - *Neurologic Denies abnormal walking, Denies abnormal hearing [facility] History I have reviewed the patient's past medical history: Yes 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: Reports:: Depression, Gastroesophageal Reflux Disease(GERD), Hyperlipidemia, Hypertension Denies:: Cancer, Diabetes Mellitus Type 1, Diabetes Mellitus Type 2, MRSA *Have you ever received a pneumonia vaccine?: No *Have you received a flu vaccine this season?: Yes Other 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: Reports: Arthritis Other Surgeries: Yes: Cholecystectomy, Hysterectomy-Partial Amputation: No Fractures: No - *Social History Smoking Status: Never smoker Tobacco Type: cigarettes Alcohol Intake: never Alcohol Intake Frequency:: other Substance Use Type: denies use *Occupational Status:: retired Housing: house Household Members: spouse, family *Travel in the last 8 weeks: None - Psychiatric History Expresses thoughts of harming self/others: None Suicide Plan Description: No Plan Pschychiatric History:: Reports:: Depression Family Hx:: Cancer, Stroke Meds Home Medications Medication Instructions Recorded Confirmed Type Atorvastatin Calcium [Atorvastatin 20 mg PO HS 10/15/18 10/17/18 History 20mg Tab] Cholecalciferol (Vitamin D3) 1,000 unit PO DAILY 10/15/18 10/17/18 History [Vitamin D3 1,000 Unit Cap] Ergocalciferol (Vitamin D2) 50,000 unit PO WEEKLY 10/15/18 10/17/18 History [Drisdol] Escitalopram Oxalate 20 mg PO DAILY 10/15/18 10/17/18 History Lisinopril/Hydrochlorothiazide 1 tab PO DAILY 10/15/18 10/17/18 History [Lisinopril-Hctz 20-25 mg Tab] Pregabalin [Lyrica] 150 mg PO BID 10/15/18 10/17/18 History Mupirocin [Bactroban 2% Ointment 1 applicatio TP BID 10/17/18 10/17/18 History 22gm tube] Sulfamethoxazole/Trimethoprim 1 each PO BID 10/17/18 10/17/18 History [Bactrim DS tablet] cephALEXin [Keflex 500mg Cap] 500 mg PO TID 10/17/18 10/17/18 History Allergies Allergy/AdvReac Type Severity Reaction Status Date / Time No Known Drug Allergies Allergy Unknown Verified 07/23/18 13:28 [NKDA] Exam Vital signs and Labs for Last 24 Hours: Temp Pulse Resp BP Pulse Ox 98.4 F 79 16 112/65 94 L 10/18/18 08:00 10/18/18 08:00 10/18/18 08:00 10/18/18 08:00 10/18/18 08:00 I & O for Last 24 hours: Intake & Output 10/15/18 10/16/18 10/17/18 10/18/18 23:59 23:59 23:59 23:59 Intake Total 847 / 847 1559 / 1559 Balance 847 / 847 1559 / 1559 Weight 184 lb Microbiology Reports for the Last 24 Hours: Microbiology 10/17/18 09:15 Face Gram Stain - Final 10/17/18 09:15 Face Wound Culture - Preliminary Gram Positive Cocci - *Routine HEENT Exam Comments: This patient was seen because of a left facial abscess which was drained in the ER 36 hours earlier. The swelling had subsided considerably and she was feeling much better. There was no cervical lymphadenopathy and there were no palpable masses. I removed the packing and ordered Epsom salt compresses every 6 hours followed by application of bacitracin ointment. She needs to continue on the v ancomycin until the cultures have been returned. I will follow-up with her on October 19 and see how she is doing. Dr. Matt Huynh please send a copy to Dr. Joseph Nation. Results - Labs 10/17/18 08:43 10/17/18 08:43 Assessment and Plan (1) Facial abscess Current visit: Yes Status: Acute Category: Medical Code(s): L02.01 - Cutaneous abscess of face (2) Facial cellulitis Current visit: Yes Status: Acute Category: Medical Code(s): L03.211 - Cellulitis of face
[2018-10-19 06:01] LABS: Basophils % 0.5 % (0.1-2.0); Eosinophils # 0.4 K/mm3 (0.0-0.4); Hematocrit 31.8 % (37.0-47.0); Hemoglobin 10.6 g/dL (12.2-16.2); Lymphocytes # 1.9 K/mm3 (0.7-4.5); Lymphocytes % 37.3 % (10-50); Mean Corpuscular HGB Conc 33.3 g/dL (31.8-35.4); Mean Corpuscular Hemoglobin 30.3 pg (27.0-31.2); Mean Corpuscular Volume 91.1 fl (81-99); Mean Platelet Volume 7.4 fl (7.4-10.4); Monocytes # 0.4 K/mm3 (0.1-1.0); Monocytes % 8.4 % (1.7-9.3); Neutrophils # 2.4 K/mm3 (1.8-7.8); Neutrophils % 46.7 % (37.0-80.0); Platelet Count 285 K/mm3 (142-424); Red Blood Count 3.49 M/mm3 (4.20-5.40); White Blood Count 5.1 K/mm3 (4.8-10.8)
[2018-10-19 06:18] LABS: Albumin Level 2.7 gm/dL (3.4-5.0); Albumin/Globulin Ratio 0.7 (1.1-1.8); Anion Gap 11.1 mEq/L (5-15); Bilirubin,Total 0.2 mg/dL (0.2-1.0); Calcium 8.5 mg/dL (8.5-10.1); Potassium 4.1 mmoL/L (3.5-5.1); Total Protein,Serum 6.7 gm/dL (6.4-8.2)
--- NOTE | 2018-10-19 07:29 | Progress Note ---
Internal Medicine - PN: Subj *Date: 10/19/18 *Time: 07:28 Interval history: Patient reports feeling well with less pain at the wound site. Wound culture has returned MRSA that is sensitive to clindamycin and Bactrim. Patient denies drug allergies Exam Vital signs and Labs for Last 24 Hours: Temp Pulse Resp BP Pulse Ox 97.8 F 79 16 120/52 L 95 10/19/18 04:00 10/19/18 04:00 10/19/18 04:00 10/19/18 04:00 10/19/18 04:00 Laboratory Results - last 24 hr 10/19/18 05:51: WBC 5.1 D, RBC 3.49 L, Hgb 10.6 L, Hct 31.8 L, MCV 91.1, MCH 30.3, MCHC 33.3, RDW 13.0, Plt Count 285, MPV 7.4, Neut % (Auto) 46.7, Lymph % (Auto) 37.3, [place] % (Auto) 8.4, Eos % (Auto) 7.0, Baso % (Auto) 0.5, Neut # (Auto) 2.4, Lymph # (Auto) 1.9, [place] # (Auto) 0.4, Eos # (Auto) 0.4, Baso # (Auto) 0.0 10/19/18 05:51: Sodium 142, Potassium 4.1, Chloride 106, Carbon Dioxide 29, Anion Gap 11.1, BUN 11, Creatinine 0.80, Estimated Creat Clear 72, Estimated GFR 72, Est GFR ( Amer) 87 D, Glucose 143 H, Calcium 8.5, Total Bilirubin 0.2, AST 31 D, ALT 93 H D, Alkaline Phosphatase 100, Total Protein 6.7, Albumin 2.7 L, Globulin 4.0 H, Albumin/Globulin Ratio 0.7 L I & O for Last 24 hours: Intake & Output 10/16/18 10/17/18 10/18/18 10/19/18 11:59 11:59 11:59 11:59 Intake Total 2045 2350 / 2350 Balance 2045 2350 / 2350 Weight 184 lb Microbiology Reports for the Last 24 Hours: Microbiology 10/17/18 09:15 Face Gram Stain - Final 10/17/18 09:15 Face Wound Culture - Final Staphylococcus aureus Narrative: Patient is awake and alert sitting up in bed. Wound has minimal tenderness. No active drainage. Assessment and Plan (1) Facial abscess Current visit: Yes Status: Acute Category: Medical Code(s): L02.01 - Cutaneous abscess of face (2) Facial cellulitis Current visit: Yes Status: Acute Category: Medical Code(s): L03.211 - Cellulitis of face - Assessment and plan all Dx Assessment and Plan for all problems:: Patient will be discharged later today after being seen by Dr. Huynh
--- NOTE | 2018-10-19 07:32 | Discharge Summary ---
General - General Admission date:: 10/18/18 Discharge date: 10/19/18 HPI HPI: 68-year-old white female, patient of Dr. Dalton, who was treated in the outpatient setting 3 days ago for a left maxillary/zygomatic arch area facial abscess with Keflex and Bactrim but unfortunately even with adequate p.o. antibiotic therapy failed to improve. Came back to the emergency department early yesterday morning, found to have worsening redness and swelling, fluctuant area was drained by the ER physician, and she was admitted for further testing, ENT consultation and IV antibiotics. This morning she feels improved and has no significant complaints except for mild pain around the abscess site. Hospital Course Hospital Course: Patient was admitted and placed on vancomycin after I&D of the lesion in the emergency department. On the fourth patient underwent CT scanning to rule out deeper infection. ENT was also consulted and the patient was seen by Dr. Huynh who are recommended Epsom salt compresses and continued IV antibiotics until culture returned. On the morning of October 19 the culture returned with MRSA that was sensitive to clindamycin as well as Bactrim. Dr. Huynh saw the patient again and patient was discharged later in the day. She will complete a course of Bactrim. She will follow-up with Dr. Dalton on Monday at a previously scheduled appointment Objective Vital signs: Temp Pulse Resp BP Pulse Ox 97.8 F 79 16 120/52 L 95 10/19/18 04:00 10/19/18 04:00 10/19/18 04:00 10/19/18 04:00 10/19/18 04:00 Results Labs on day of discharge: Labs from last 24 hours 10/19/18 10/19/18 05:51 05:51 WBC 5.1 D RBC 3.49 L Hgb 10.6 L Hct 31.8 L MCV 91.1 MCH 30.3 MCHC 33.3 RDW 13.0 Plt Count 285 MPV 7.4 Neut % (Auto) 46.7 Lymph % (Auto) 37.3 [place] % (Auto) 8.4 Eos % (Auto) 7.0 Baso % (Auto) 0.5 Neut # (Auto) 2.4 Lymph # (Auto) 1.9 [place] # (Auto) 0.4 Eos # (Auto) 0.4 Baso # (Auto) 0.0 Sodium 142 Potassium 4.1 Chloride 106 Carbon Dioxide 29 Anion Gap 11.1 BUN 11 Creatinine 0.80 Estimated Creat Clear 72 Estimated GFR 72 Est GFR ( Amer) 87 D Glucose 143 H Calcium 8.5 Total Bilirubin 0.2 AST 31 D ALT 93 H D Alkaline Phosphatase 100 Total Protein 6.7 Albumin 2.7 L Globulin 4.0 H Albumin/Globulin Ratio 0.7 L DS: Diagnosis - Discharge Diagnosis (1) Facial abscess Status: Acute (2) Facial cellulitis Status: Acute Discharge Plan - Patient Discharge Instructions ACTIVITY: Continue current activity DIET: continue same diet Patient Instructions: DI for Cellulitis -- Adult, DI for Incision and Drainage of a Skin Abscess - Follow up Plan Follow up with: Anoop Dalton MD [Primary Care Provider] - 10/22/18 Disposition: Home, Self-Detention Medications: Home Medications Medication Instructions Recorded Confirmed Type Atorvastatin Calcium [Atorvastatin 20 mg PO HS 10/15/18 10/17/18 History 20mg Tab] Cholecalciferol (Vitamin D3) 1,000 unit PO DAILY 10/15/18 10/17/18 History [Vitamin D3 1,000 Unit Cap] Ergocalciferol (Vitamin D2) 50,000 unit PO WEEKLY 10/15/18 10/17/18 History [Drisdol] Escitalopram Oxalate 20 mg PO DAILY 10/15/18 10/17/18 History Lisinopril/Hydrochlorothiazide 1 tab PO DAILY 10/15/18 10/17/18 History [Lisinopril-Hctz 20-25 mg Tab] Pregabalin [Lyrica] 150 mg PO BID 10/15/18 10/17/18 History Mupirocin [Bactroban 2% Ointment 1 applicatio TP BID 10/17/18 10/17/18 History 22gm tube] cephALEXin [Keflex 500mg Cap] 500 mg PO TID 10/17/18 10/17/18 History Sulfamethoxazole/Trimethoprim 1 each PO BID #14 tablet 10/19/18 Rx [Bactrim DS tablet] Prescriptions/Medication Reconciliation: Continue Lisinopril/Hydrochlorothiazide [Lisinopril-Hctz 20-25 mg Tab] 1 tab PO DAILY Pregabalin [Lyrica] 150 mg PO BID Atorvastatin Calcium [Atorvastatin 20mg Tab] 20 mg PO HS Escitalopram Oxalate 20 mg PO DAILY Mupirocin [Bactroban 2% Ointment 22gm tube] 1 applicatio TP BID Cholecalciferol (Vitamin D3) [Vitamin D3 1,000 Unit Cap] 1,000 unit PO DAILY Ergocalciferol (Vitamin D2) [Drisdol] 50,000 unit PO WEEKLY Sulfamethoxazole/Trimethoprim [Bactrim DS tablet] 1 each PO BID #14 tablet Discontinued cephALEXin [Keflex 500mg Cap] 500 mg PO TID
[2018-10-20 08:26] LABS: Hepatitis B Core Antibody IgM Negative (Negative); Hepatitis B Surface Antigen Negative (Negative)
[2018-10-20 18:10] LABS: Hepatitis C Antibody <0.1 s/co ratio (0.0-0.9)
== END 2018-10-19 13:40 | disposition home or self-care (01) | DRG 603 ==
LOC: ER 08:32 → 2ND 08:32
PROVIDERS: ADMIT Emergency Medicine; ATTEND Emergency Medicine
CPT/HCPCS: 36415; 70487; 74177; 80048; 80053; 80074; 85025; 87070; 87077; 87186; 87205; 96365; 96367; 96375; 99282; 99285; G0378; J2405; J3370; Q9967

== ENCOUNTER → 2019-03-01 14:01 | Outpatient (CLI) | payer MEDICARE, SELFPAY ==
[2019-03-01 14:44] LABS: Basophils % 0.6 % (0.1-2.0); Eosinophils # 0.2 K/mm3 (0.0-0.4); Eosinophils % 3.2 % (0.1-12.0); Hematocrit 37.9 % (37.0-47.0); Hemoglobin 12.5 g/dL (12.2-16.2); Lymphocytes # 1.8 K/mm3 (0.7-4.5); Lymphocytes % 25.5 % (10-50); Mean Corpuscular Hemoglobin 30.1 pg (27.0-31.2); Mean Corpuscular Volume 91.3 fl (81-99); Mean Platelet Volume 8.3 fl (7.4-10.4); Monocytes # 0.5 K/mm3 (0.1-1.0); Monocytes % 7.7 % (1.7-9.3); Neutrophils # 4.3 K/mm3 (1.8-7.8); Neutrophils % 63.1 % (37.0-80.0); Platelet Count 352 K/mm3 (142-424); Red Blood Count 4.15 M/mm3 (4.20-5.40); Red Cell Distribution Width 13.2 % (11.5-17.5); White Blood Count 6.9 K/mm3 (4.8-10.8)
[2019-03-01 15:01] LABS: Alanine Aminotransferase 40 U/L (12-78); Albumin Level 3.6 gm/dL (3.4-5.0); Anion Gap 13.8 mEq/L (5-15); Aspartate Amino Transferase 21 U/L (15-37); Bilirubin,Total 0.4 mg/dL (0.2-1.0); Blood Urea Nitrogen 14 mg/dL (7-18); Carbon Dioxide 29 mmol/L (21.0-32.0); Chloride 101 mmol/L (98-107); Cholesterol 275 mg/dL (140-200); Creatinine,Serum 1.01 mg/dL (0.55-1.02); Estimated Glomerular Filt Rate 55 ml/min (>60); GFR (African American) 66 ML/MIN (>60); Globulin 3.6 gm/dl (1.3-3.2); Glucose 145 mg/dL (74-106); Potassium 3.8 mmoL/L (3.5-5.1); Sodium 140 mmol/L (136-145); T4 (Thyroxine) 7.7 ug/dl (4.7-13.3); Thyroid Stimulating Hormone 3.08 uIU/ml (0.358-3.740); Total Protein,Serum 7.2 gm/dL (6.4-8.2); Triglycerides 358 mg/dL (30-200); VLDL Cholesterol 72 mg/dL (0-40)
[2019-03-01 15:22] LABS: Hemoglobin A1C 7.3 % (0.0-7.0)
[2019-03-01 15:35] LABS: Alkaline Phosphatase 77 U/L (46-116); Calcium 9.2 mg/dL (8.5-10.1); Chol/HDL Ratio 5.9 (1-3.5); HDL Cholesterol 47 mg/dL (29-89); LDL Cholesterol 156 mg/dL (0-130)
[2019-03-03 16:28] LABS: Vitamin D 25 Hydroxy 26.2 ng/mL (30.0-100.0)
== END ==
PROVIDERS: Visit Provider Emergency Medicine
DX: R73.9 Hyperglycemia, unspecified (principal); R74.8 Abnormal levels of other serum enzymes; E78.5 Hyperlipidemia, unspecified; L03.90 Cellulitis, unspecified
CPT/HCPCS: 80053; 80061; 82652; 83036; 84436; 84443; 85025

== ENCOUNTER 2019-03-29 16:43 | Observation (INO) ==
--- NOTE | 2019-03-29 17:08 | Emergency Department Note ---
ED Disposition Clinical Impression: Diverticulitis Disposition: Admitted As Inpatient Condition on Discharge: Good - Critical Care Critical Care Time: No Attestation: On , the high probability of a clinically significant, sudden or life threatening deterioration of the following system(s) required my full and direct attention, intervention and personal management. The time I documented below is in addition to time spent performing reported procedures but includes the following listed in this critical care notation. Medical Decision Making - Abelardo Inquiry Pt receiving controlled substance: No Abelardo was queried for this patient: No Vital Signs: 03/29/19 17:02 Temperature 99 F Temperature Source Oral Pulse Rate [Left Radial] 120 H Respiratory Rate 20 Blood Pressure [Right Arm] 93/52 L Blood Pressure Mean [Right Arm] 65 Blood Pressure Source [Right Arm] Automatic Cuff Blood Pressure Position [Right Arm] Sitting 02 Sat by Pulse Oximetry 98 Oxygen Delivery Method Room Air - Lab Data Lab Results 03/29/19 16:47: Urine Color Yellow, Urine Appearance Clear, Urine pH 7.0, Ur Specific [place] 1.010, Urine Protein Trace, Urine Glucose (UA) Negative, Urine Ketones Negative, Urine Blood Trace-i, Urine Nitrate Negative, Urine Bilirubin Negative, Urine Urobilinogen 0.2, Ur Leukocyte Esterase 2+ A, Urine RBC 3-5, Urine WBC 10-20, Ur Squamous Epith Cells 5-10 03/29/19 17:11: WBC 16.4 H, RBC 4.17 L, Hgb 12.5, Hct 37.6, MCV 90.2, MCH 30.1, MCHC 33.4, RDW 13.3, Plt Count 392, MPV 7.5, Neut % (Auto) 79.6, Lymph % (Auto) 11.5, [place] % (Auto) 6.7, Eos % (Auto) 1.8, Baso % (Auto) 0.3, Neut # (Auto) 13.0 H, Lymph # (Auto) 1.9, [place] # (Auto) 1.1 H, Eos # (Auto) 0.3, Baso # (Auto) 0.1, Total Counted 100, Neutrophils % (Manual) 83 H, Lymphocytes % (Manual) 13, Monocytes % (Manual) 4, Platelet Estimate Normal, RBC Morphology Normal 03/29/19 17:11: Sodium 135 L, Potassium 3.2 L, Chloride 96 L, Carbon Dioxide 26, Anion Gap 16.2 H, BUN 11, Creatinine 1.11 H, Estimated Creat Clear 55, Estimated GFR 49 L, Est GFR ( Amer) 59, Glucose 150 H, Calcium 9.4, Total Bilirubin 0.5, AST 31, ALT 58, Alkaline Phosphatase 109, Total Protein 8.3 H, Albumin 3.7, Globulin 4.6 H, Albumin/Globulin Ratio 0.8 L, Amylase 48, Lipase 170 Result diagrams: 03/29/19 17:11 03/29/19 17:11 Orders (Tests/Meds): ED MEDICATIONS Generic Name Dose Route Start Last Admin Trade Name Tobias PRN Reason Stop Dose Admin Sodium Chloride 1,000 mls @ 999 mls/hr 03/29/19 17:30 03/29/19 17:21 Sod Chlor 0.9% 1000ml Bag IV 03/29/19 18:30 999 mls/hr .Q1H1M MICHELLE Administration Metronidazole 500 mg in 100 mls @ 100 mls/hr 03/29/19 19:28 03/29/19 19:53 Flagyl 500mg/100ml Ivpb IV 03/29/19 20:27 100 mls/hr ONCE ONE Administration Protocol Sodium Chloride 10 ml 03/29/19 18:20 03/29/19 18:22 Rad-Saline Flush 10ml Syringe IV 04/28/19 18:19 10 ml NEEDED PRN Administration Maintain IV Site Discontinued Medications Generic Name Dose Route Start Last Admin Trade Name Tobias PRN Reason Stop Dose Admin Dicyclomine HCl 10 mg 03/29/19 17:21 03/29/19 17:29 Dicyclomine 20mg/2ml Vial IM 03/29/19 17:22 10 mg ONCE ONE Administration Ioversol 75 ml 03/29/19 18:20 03/29/19 18:22 Rad-Optiray 350 100ml Vial IV 03/29/19 18:21 75 ml ONCE ONE Administration Protocol Levofloxacin 500 mg 03/29/19 19:31 03/29/19 19:54 Levaquin 500mg Tab PO 03/29/19 19:32 500 mg ONCE ONE Administration Protocol Ondansetron HCl 4 mg 03/29/19 17:21 03/29/19 17:29 Zofran 4mg Odt SL 03/29/19 17:22 4 mg ONCE ONE Administration ORDERS Category Date Time Status CT abdomen pelvis w con Stat Cat Scan 03/29/19 17:02 Taken Lactic Acid Stat Lab 03/29/19 20:12 Received Urine Culture Stat Micro 03/29/19 16:47 Received Abdominal Pain HPI - General Chief Complaint: Abdominal Pain Stated Complaint: Abd pain Time Seen by Provider: 03/29/19 17:06 Mode of Arrival: Ambulatory Source of Information: Patient Limitations: No Limitations - History of Present Illness HPI narrative: 68-year-old female. She said she has lower abdominal pain. She felt she has constipation so she took several laxative pills with some results, had a bowel movement but was not enough. However she still feels bloated and pain in the lower part of the abdomen. No nausea or vomiting. The only abdominal surgery she had she denies any flank pain. She denied any dysuria. She has no appetite. No melena. She was seen by her primary care physician today for evaluation and she was sent here for more evaluation more tests. MD complaint: abdominal pain Onset (ago): day(s) Consistency: intermittent Location: suprapubic Severity: moderate Severity scale (1-10): 5 Quality: cramping Radiation: none Migration to: no migration Relieving factors: nothing Exacerbating factors: nothing - Related Data Home Medications Medication Instructions Recorded Confirmed Mupirocin [Bactroban 2% Ointment 1 applicatio TP BID 10/17/18 03/29/19 22gm tube] Previous Rx's Medication Instructions Recorded pregabalin 150 mg capsule 150 mg PO BID #60 cap 02/15/19 aspirin 81 mg tablet,delayed 81 mg PO DAILY #30 tab 03/07/19 release atorvastatin 40 mg tablet 40 mg PO DAILY #90 tab 03/07/19 blood sugar diagnostic strips See Dose Instructions .ROUTE 03/07/19 .MEDSUPPLY #100 each blood-glucose meter kit See Dose Instructions .ROUTE 03/07/19 .MEDSUPPLY #1 each cholecalciferol (vitamin D3) 1,000 1,000 unit PO DAILY #90 cap 03/07/19 unit capsule ergocalciferol (vitamin D2) 50,000 50,000 unit PO WEEKLY #14 cap 03/07/19 unit capsule lisinopril 2.5 mg tablet 2.5 mg PO DAILY #90 tab 03/07/19 metformin 500 mg tablet 500 mg PO BID #60 tab 03/07/19 escitalopram 20 mg tablet 20 mg PO DAILY #90 tab 03/25/19 lisinopril 20 1 tab PO DAILY #90 tab 03/27/19 mg-hydrochlorothiazide 25 mg tablet Allergies Allergy/AdvReac Type Severity Reaction Status Date / Time No Known Allergies Allergy Verified 03/29/19 16:23 [facility] History - Hepatitis A Screen Attestation statement:: This patient has been screened for Hepatitis A risk factors. 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: Reports:: Anxiety, Depression, Gastroesophageal Reflux Disease(GERD), Hyperlipidemia, Hypertension Denies:: Cancer, Diabetes Mellitus Type 1, Diabetes Mellitus Type 2, MRSA Other 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: Reports: Arthritis Other Surgeries: Yes: No Previous Surgery, Cholecystectomy, Colonoscopy, Hysterectomy-Partial Amputation: No Fractures: No - Social History Smoking Status: Never smoker Tobacco Type: cigarettes Alcohol Intake: never Alcohol Intake Frequency:: other Substance Use Type: denies use Occupational Status: retired Housing: house Household Members: spouse, family - Psychiatric History Pschychiatric History:: Reports:: Anxiety, Depression Family Hx:: Cancer, Stroke ROS Obtained: Yes All systems reviewed & no additional complaints - Gastrointestinal Gastrointestingal: Reports: abdominal pain, bloating Physical Exam - General General appearance: alert, in no apparent distress - Head Head exam: atraumatic, normocephalic, normal inspection - Eye Eye exam: Present: normal appearance, PERRL, EOMI - ENT ENT exam: Present: normal exam, normal oropharynx, mucous membranes moist, TM's normal bilaterally, normal external ear exam - Neck Neck exam: Present: normal inspection, full ROM, trachea midline. Absent: meningismus, lymphadenopathy - Chest Chest inspection: Present: normal inspection, symmetric chest wall rise. Absent: tenderness - Respiratory Respiratory exam: Present: normal lung sounds bilaterally. Absent: respiratory distress - Cardiovascular Cardiovascular exam: Present: regular rate, normal rhythm. Absent: JVD - Abdominal Exam Abdominal exam: Present: soft, tenderness (Epigastric tenderness which is mild. No guarding or rebound tenderness), normal bowel sounds. Absent: distention, guarding - Extremities Exam Extremities exam: Present: normal inspection, full ROM, normal capillary refill. Absent: calf tenderness - Back Exam Back exam: Present: normal inspection. Absent: tenderness - Neurological Exam Neurological exam: Present: alert, oriented X3 - Psychiatric Psychiatric exam: Present: normal affect, normal mood - Skin Skin exam: Present: warm, dry, intact, normal color - Lymphatic Lymphatic Findings: no adenopathy
[2019-03-29 17:15] LABS: Microscopic, Urine URINE MICROSCOPIC (MICROSCOPIC)
[2019-03-29 17:16] LABS: Appearance,Urine CLEAR (Clear); Bilirubin,Urine Negative (Negative); Blood, Urine TRACE-I (Negative); Color,Urine YELLOW (Yellow); Glucose,Urine (UA) Negative (Negative); Ketones,Urine Negative (Negative); Leukocyte Esterase,Urine 2+ (Negative); Protein,Urine TRACE (Negative); Urobilinogen,Urine 0.2 EU/dl (0.2)
[2019-03-29 17:18] LABS: Basophils # 0.1 K/mm3 (0-0.2); Basophils % 0.3 % (0.1-2.0); Eosinophils # 0.3 K/mm3 (0.0-0.4); Eosinophils % 1.8 % (0.1-12.0); Hematocrit 37.6 % (37.0-47.0); Hemoglobin 12.5 g/dL (12.2-16.2); Lymphocytes # 1.9 K/mm3 (0.7-4.5); Lymphocytes % 11.5 % (10-50); Mean Corpuscular HGB Conc 33.4 g/dL (31.8-35.4); Mean Corpuscular Volume 90.2 fl (81-99); Mean Platelet Volume 7.5 fl (7.4-10.4); Monocytes # 1.1 K/mm3 (0.1-1.0); Monocytes % 6.7 % (1.7-9.3); Neutrophils % 79.6 % (37.0-80.0); Platelet Count 392 K/mm3 (142-424); Red Blood Count 4.17 M/mm3 (4.20-5.40); Red Cell Distribution Width 13.3 % (11.5-17.5); White Blood Count 16.4 K/mm3 (4.8-10.8)
[2019-03-29 17:38] LABS: Albumin Level 3.7 gm/dL (3.4-5.0); Albumin/Globulin Ratio 0.8 (1.1-1.8); Anion Gap 16.2 mEq/L (5-15); Bilirubin,Total 0.5 mg/dL (0.2-1.0); Calcium 9.4 mg/dL (8.5-10.1); Globulin 4.6 gm/dl (1.3-3.2); Total Protein,Serum 8.3 gm/dL (6.4-8.2)
[2019-03-29 17:53] LABS: Lymphocytes % 13 % (10-50); Monocytes % 4 % (2-9); Neutrophils % 83 % (42-76); RBC Morphology Normal; Total Cells Counted 100
--- NOTE | 2019-03-29 21:00 | History & Physical Report ---
*Admission Date: 03/29/19 *Chief complaint: abd pain *History of present illness: wf with progressive abd pain over the last few days - she with nausea and dec po intake - she was seen in the office and sent to ed for [id number] female. She said she has lower abdominal pain. She felt she has constipation so she took several laxative pills with some results, had a bowel movement but was not enough. However she still feels bloated and pain in the lower part of the abdomen. No nausea or vomiting. The only abdominal surgery she had she denies any flank pain. She denied any dysuria. She has no appetite. No melena. She was seen by her primary care physician today for evaluation -pt with abn ct in ed and was admitted for ivf and pain control and abx [facility] History I have reviewed the patient's past medical history: Yes 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: Reports:: Anxiety, Depression, Gastroesophageal Reflux Disease(GERD), Hyperlipidemia, Hypertension Denies:: Cancer, Diabetes Mellitus Type 1, Diabetes Mellitus Type 2, MRSA *Have you ever received a pneumonia vaccine?: No *Have you received a flu vaccine this season?: No Other 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: Reports: Arthritis Other Surgeries: Yes: No Previous Surgery, Cholecystectomy, Colonoscopy, Hysterectomy-Partial Amputation: No Fractures: No - *Social History Smoking Status: Never smoker Tobacco Type: cigarettes Alcohol Intake: never Alcohol Intake Frequency:: other Substance Use Type: denies use *Occupational Status:: retired Housing: house Household Members: spouse, family *Travel in the last 8 weeks: None - Psychiatric History Pschychiatric History:: Reports:: Anxiety, Depression Family Hx:: Cancer, Stroke Review of Systems - Review of Systems Review of systems:: pertinent systems reviewed and negative unless documented below - Constitutional Denies fever(s) - Eyes Denies change in vision - ENT Denies sore throat - *Cardiovascular Denies chest pain at rest - *Respiratory Denies cough - *Gastrointestinal Reports abdominal pain, Reports nausea, Reports vomiting - *Genitourinary Denies blood in urine - *Musculoskeletal Denies joint pain, Denies joint swelling - Integumentary/Breasts Denies rash - *Neurologic Denies dizziness - Psychiatric Denies anxiety Meds Home Medications Medication Instructions Recorded Confirmed Type Mupirocin [Bactroban 2% Ointment 1 applicatio TP BID 10/17/18 03/29/19 History 22gm tube] pregabalin 150 mg capsule 150 mg PO BID #60 cap 02/15/19 03/29/19 Rx aspirin 81 mg tablet,delayed 81 mg PO DAILY #30 tab 03/07/19 03/29/19 Rx release atorvastatin 40 mg tablet 40 mg PO DAILY #90 tab 03/07/19 03/29/19 Rx cholecalciferol (vitamin D3) 1,000 1,000 unit PO DAILY #90 cap 03/07/19 03/29/19 Rx unit capsule ergocalciferol (vitamin D2) 50,000 50,000 unit PO WEEKLY #14 cap 03/07/19 03/29/19 Rx unit capsule lisinopril 2.5 mg tablet 2.5 mg PO DAILY #90 tab 03/07/19 03/29/19 Rx escitalopram 20 mg tablet 20 mg PO DAILY #90 tab 03/25/19 03/29/19 Rx lisinopril 20 1 tab PO DAILY #90 tab 03/27/19 03/29/19 Rx mg-hydrochlorothiazide 25 mg tablet Allergies Allergy/AdvReac Type Severity Reaction Status Date / Time No Known Allergies Allergy Verified 03/29/19 16:23 Exam Vital signs and Labs for Last 24 Hours: Temp Pulse Resp BP Pulse Ox 99 F 84 20 136/79 98 03/29/19 17:02 03/29/19 20:33 03/29/19 20:33 03/29/19 20:33 03/29/19 20:33 Laboratory Results - last 24 hr 03/29/19 16:47: Urine Color Yellow, Urine Appearance Clear, Urine pH 7.0, Ur Specific [place] 1.010, Urine Protein Trace, Urine Glucose (UA) Negative, Urine Ketones Negative, Urine Blood Trace-i, Urine Nitrate Negative, Urine Bilirubin Negative, Urine Urobilinogen 0.2, Ur Leukocyte Esterase 2+ A, Urine RBC 3-5, Urine WBC 10-20, Ur Squamous Epith Cells 5-10 03/29/19 17:11: WBC 16.4 H, RBC 4.17 L, Hgb 12.5, Hct 37.6, MCV 90.2, MCH 30.1, MCHC 33.4, RDW 13.3, Plt Count 392, MPV 7.5, Neut % (Auto) 79.6, Lymph % (Auto) 11.5, [place] % (Auto) 6.7, Eos % (Auto) 1.8, Baso % (Auto) 0.3, Neut # (Auto) 13.0 H, Lymph # (Auto) 1.9, [place] # (Auto) 1.1 H, Eos # (Auto) 0.3, Baso # (Auto) 0.1, Total Counted 100, Neutrophils % (Manual) 83 H, Lymphocytes % (Manual) 13, Monocytes % (Manual) 4, Platelet Estimate Normal, RBC Morphology Normal 03/29/19 17:11: Sodium 135 L, Potassium 3.2 L, Chloride 96 L, Carbon Dioxide 26, Anion Gap 16.2 H, BUN 11, Creatinine 1.11 H, Estimated Creat Clear 55, Estimated GFR 49 L, Est GFR ( Amer) 59, Glucose 150 H, Calcium 9.4, Total Bilirubin 0.5, AST 31, ALT 58, Alkaline Phosphatase 109, Total Protein 8.3 H, Albumin 3.7, Globulin 4.6 H, Albumin/Globulin Ratio 0.8 L, Amylase 48, Lipase 170 03/29/19 20:12: Lactate 0.7 I & O for Last 24 hours: Intake & Output 03/27/19 03/28/19 03/29/19 03/30/19 11:59 11:59 11:59 11:59 Weight 157 lb - Constitutional no acute distress, obese - *Routine HEENT Exam Head: Present: normocephalic Eye: Present: EOMI, PERRL ENT: Present: mucous membranes dry - *Routine Neck Exam Present: full ROM - *Routine Respiratory Exam Present: CTA bilaterally - *Routine Cardiovascular Exam Present: RRR, murmur, S4 - *Routine Abdominal Exam Present: soft, tenderness - *Routine Extremities Exam Present: full ROM - *Routine Skin Exam Present: intact - *Routine Neurological Exam Present: alert, oriented X3, CN II-XII intact - Routine Psychiatric Exam Present: normal affect Assessment and Plan (1) Diverticulitis Current visit: Yes Status: Acute Category: Medical Code(s): K57.92 - Diverticulitis of intestine, part unspecified, without perforation or abscess without bleeding (2) Obesity (BMI 30.0-34.9) Current visit: Yes Status: Acute Category: Medical Code(s): E66.9 - Obesity, unspecified (3) UTI (urinary tract infection) Current visit: Yes Status: Acute Qualifiers: Urinary tract infection type: site unspecified Hematuria presence: without hematuria Qualified Code(s): N39.0 - Urinary tract infection, site not specified Category: Medical Code(s): N39.0 - Urinary tract infection, site not specified (4) Hypokalemia Current visit: Yes Status: Acute Category: Medical Code(s): E87.6 - Hypokalemia (5) Diabetes mellitus Current visit: Yes Status: Acute Qualifiers: Diabetes mellitus type: type 2 Diabetes mellitus detention insulin use: unspecified termination clerk insulin use status Diabetes mellitus complication status: with other specified complication Qualified Code(s): E11.69 - Type 2 diabetes mellitus with other specified complication Category: Medical Code(s): E11.9 - Type 2 diabetes mellitus without complications
[2019-03-30 06:01] LABS: Basophils % 0.3 % (0.1-2.0); Eosinophils # 0.2 K/mm3 (0.0-0.4); Eosinophils % 1.5 % (0.1-12.0); Hematocrit 33.3 % (37.0-47.0); Lymphocytes # 1.9 K/mm3 (0.7-4.5); Lymphocytes % 16.8 % (10-50); Mean Corpuscular HGB Conc 32.8 g/dL (31.8-35.4); Mean Corpuscular Volume 91.7 fl (81-99); Mean Platelet Volume 7.8 fl (7.4-10.4); Monocytes # 0.8 K/mm3 (0.1-1.0); Neutrophils # 8.4 K/mm3 (1.8-7.8); Neutrophils % 74.3 % (37.0-80.0); Platelet Count 272 K/mm3 (142-424); Red Blood Count 3.63 M/mm3 (4.20-5.40); Red Cell Distribution Width 13.3 % (11.5-17.5); White Blood Count 11.3 K/mm3 (4.8-10.8)
[2019-03-30 06:04] LABS: Hemoglobin 10.9 g/dL (12.2-16.2)
[2019-03-30 06:10] LABS: Anion Gap 13.4 mEq/L (5-15)
--- NOTE | 2019-03-30 09:14 | Progress Note ---
Internal Medicine - PN: Subj *Date: 03/30/19 *Time: 09:12 Interval history: doing better - labs better but still with pain and dec po intake Exam Vital signs and Labs for Last 24 Hours: Temp Pulse Resp BP Pulse Ox 98.3 F 80 17 121/72 90 L 03/30/19 08:00 03/30/19 08:00 03/30/19 08:00 03/30/19 08:00 03/30/19 08:00 Laboratory Results - last 24 hr 03/29/19 16:47: Urine Color Yellow, Urine Appearance Clear, Urine pH 7.0, Ur Specific [place] 1.010, Urine Protein Trace, Urine Glucose (UA) Negative, Urine Ketones Negative, Urine Blood Trace-i, Urine Nitrate Negative, Urine Bilirubin Negative, Urine Urobilinogen 0.2, Ur Leukocyte Esterase 2+ A, Urine RBC 3-5, Urine WBC 10-20, Ur Squamous Epith Cells 5-10 03/29/19 17:11: WBC 16.4 H, RBC 4.17 L, Hgb 12.5, Hct 37.6, MCV 90.2, MCH 30.1, MCHC 33.4, RDW 13.3, Plt Count 392, MPV 7.5, Neut % (Auto) 79.6, Lymph % (Auto) 11.5, [place] % (Auto) 6.7, Eos % (Auto) 1.8, Baso % (Auto) 0.3, Neut # (Auto) 13.0 H, Lymph # (Auto) 1.9, [place] # (Auto) 1.1 H, Eos # (Auto) 0.3, Baso # (Auto) 0.1, Total Counted 100, Neutrophils % (Manual) 83 H, Lymphocytes % (Manual) 13, Monocytes % (Manual) 4, Platelet Estimate Normal, RBC Morphology Normal 03/29/19 17:11: Sodium 135 L, Potassium 3.2 L, Chloride 96 L, Carbon Dioxide 26, Anion Gap 16.2 H, BUN 11, Creatinine 1.11 H, Estimated Creat Clear 55, Estimated GFR 49 L, Est GFR ( Amer) 59, Glucose 150 H, Calcium 9.4, Total Bilirubin 0.5, AST 31, ALT 58, Alkaline Phosphatase 109, Total Protein 8.3 H, Albumin 3.7, Globulin 4.6 H, Albumin/Globulin Ratio 0.8 L, Amylase 48, Lipase 170 03/29/19 20:12: Lactate 0.7 03/29/19 22:18: POC Glucose 133 H 03/30/19 05:50: WBC 11.3 H D, RBC 3.63 L, Hgb 10.9 L D, Hct 33.3 L, MCV 91.7, MCH 30.1, MCHC 32.8, RDW 13.3, Plt Count 272 D, MPV 7.8, Neut % (Auto) 74.3, Lymph % (Auto) 16.8, [place] % (Auto) 7.0, Eos % (Auto) 1.5, Baso % (Auto) 0.3, Neut # (Auto) 8.4 H, Lymph # (Auto) 1.9, [place] # (Auto) 0.8, Eos # (Auto) 0.2, Baso # (Auto) 0.0 03/30/19 05:50: Sodium 138, Potassium 3.4 L, Chloride 100, Carbon Dioxide 28, Anion Gap 13.4, BUN 11, Creatinine 0.95, Estimated Creat Clear 76, Estimated GFR 59, Est GFR ( Amer) 71 D, Glucose 103 D, Calcium 9.0 I & O for Last 24 hours: Intake & Output 03/27/19 03/28/19 03/29/19 03/30/19 11:59 11:59 11:59 11:59 Intake Total 2233 / 2233 Balance 2233 / 2233 Weight 195 lb 2 oz Microbiology Reports for the Last 24 Hours: Microbiology 03/29/19 16:47 Urine,Clean Catch Urine Culture - Preliminary - Constitutional no acute distress, obese - *Routine HEENT Exam Head: Present: normocephalic Eye: Present: EOMI, PERRL ENT: Present: mucous membranes dry - *Routine Neck Exam Present: supple - *Routine Respiratory Exam Absent: respiratory distress - *Routine Cardiovascular Exam Present: RRR - *Routine Abdominal Exam Present: soft, tenderness - *Routine Extremities Exam Present: full ROM - *Routine Skin Exam Present: intact - *Routine Neurological Exam Present: alert, oriented X3, CN II-XII intact - Routine Psychiatric Exam Present: normal affect Assessment and Plan (1) Diverticulitis Current visit: Yes Status: Acute Category: Medical Code(s): K57.92 - Diverticulitis of intestine, part unspecified, without perforation or abscess without bleeding (2) Obesity (BMI 30.0-34.9) Current visit: Yes Status: Acute Category: Medical Code(s): E66.9 - Obesity, unspecified (3) UTI (urinary tract infection) Current visit: Yes Status: Acute Qualifiers: Urinary tract infection type: site unspecified Hematuria presence: without hematuria Qualified Code(s): N39.0 - Urinary tract infection, site not specified Category: Medical Code(s): N39.0 - Urinary tract infection, site not specified (4) Hypokalemia Current visit: Yes Status: Acute Category: Medical Code(s): E87.6 - Hypokalemia (5) Diabetes mellitus Current visit: Yes Status: Acute Qualifiers: Diabetes mellitus type: type 2 Diabetes mellitus manager terminal insulin use: unspecified penitentiary insulin use status Diabetes mellitus complication status: with other specified complication Qualified Code(s): E11.69 - Type 2 diabetes mellitus with other specified complication Category: Medical Code(s): E11.9 - Type 2 diabetes mellitus without complications
--- NOTE | 2019-03-30 09:29 | Discharge Summary ---
General - General Admission date:: 03/29/19 Discharge date: 03/30/19 HPI HPI: wf with progressive abd pain over the last few days - she with nausea and dec po intake - she was seen in the office and sent to ed for [id number]-old female. She said she has lower abdominal pain. She felt she has constipation so she took several laxative pills with some results, had a bowel movement but was not enough. However she still feels bloated and pain in the lower part of the abdomen. No nausea or vomiting. The only abdominal surgery she had she denies any flank pain. She denied any dysuria. She has no appetite. No melena. She was seen by her primary care physician today for evaluation -pt with abn ct in ed and was admitted for ivf and pain control and abx Hospital Course Hospital Course: pt has improved some with labs better and she wishes to try as op - is nohemy liquids and she has no fever and has pain but wishes to try at home on abx Objective Vital signs: Temp Pulse Resp BP Pulse Ox 98.3 F 80 17 121/72 90 L 03/30/19 08:00 03/30/19 08:00 03/30/19 08:00 03/30/19 08:00 03/30/19 08:00 no acute distress, obese - *Routine HEENT Exam Head: Present: normocephalic Eye: Present: EOMI, PERRL ENT: Present: mucous membranes dry - *Routine Neck Exam Present: supple - *Routine Respiratory Exam Absent: respiratory distress - *Routine Cardiovascular Exam Present: RRR - *Routine Abdominal Exam Present: soft, tenderness. Absent: guarding, rigid - *Routine Extremities Exam Present: full ROM - Routine Back/Spine/Pelvis Exam Back/Spine: Absent: CVA tenderness - *Routine Skin Exam Present: intact - *Routine Neurological Exam Present: alert, CN II-XII intact - Routine Psychiatric Exam Present: normal affect Results Labs on day of discharge: Labs from last 24 hours 03/30/19 03/30/19 03/29/19 05:50 05:50 22:18 WBC 11.3 H D RBC 3.63 L Hgb 10.9 L D Hct 33.3 L MCV 91.7 MCH 30.1 MCHC 32.8 RDW 13.3 Plt Count 272 D MPV 7.8 Neut % (Auto) 74.3 Lymph % (Auto) 16.8 [place] % (Auto) 7.0 Eos % (Auto) 1.5 Baso % (Auto) 0.3 Neut # (Auto) 8.4 H Lymph # (Auto) 1.9 [place] # (Auto) 0.8 Eos # (Auto) 0.2 Baso # (Auto) 0.0 Total Counted Neutrophils % (Manual) Lymphocytes % (Manual) Monocytes % (Manual) Platelet Estimate RBC Morphology Sodium 138 Potassium 3.4 L Chloride 100 Carbon Dioxide 28 Anion Gap 13.4 BUN 11 Creatinine 0.95 Estimated Creat Clear 76 Estimated GFR 59 Est GFR ( Amer) 71 D Glucose 103 D POC Glucose 133 H Lactate Calcium 9.0 Total Bilirubin AST ALT Alkaline Phosphatase Total Protein Albumin Globulin Albumin/Globulin Ratio Amylase Lipase Urine Color Urine Appearance Urine pH Ur Specific [place] Urine Protein Urine Glucose (UA) Urine Ketones Urine Blood Urine Nitrate Urine Bilirubin Urine Urobilinogen Ur Leukocyte Esterase Urine RBC Urine WBC Ur Squamous Epith Cells 03/29/19 03/29/19 03/29/19 20:12 17:11 17:11 WBC 16.4 H RBC 4.17 L Hgb 12.5 Hct 37.6 MCV 90.2 MCH 30.1 MCHC 33.4 RDW 13.3 Plt Count 392 MPV 7.5 Neut % (Auto) 79.6 Lymph % (Auto) 11.5 [place] % (Auto) 6.7 Eos % (Auto) 1.8 Baso % (Auto) 0.3 Neut # (Auto) 13.0 H Lymph # (Auto) 1.9 [place] # (Auto) 1.1 H Eos # (Auto) 0.3 Baso # (Auto) 0.1 Total Counted 100 Neutrophils % (Manual) 83 H Lymphocytes % (Manual) 13 Monocytes % (Manual) 4 Platelet Estimate Normal RBC Morphology Normal Sodium 135 L Potassium 3.2 L Chloride 96 L Carbon Dioxide 26 Anion Gap 16.2 H BUN 11 Creatinine 1.11 H Estimated Creat Clear 55 Estimated GFR 49 L Est GFR ( Amer) 59 Glucose 150 H POC Glucose Lactate 0.7 Calcium 9.4 Total Bilirubin 0.5 AST 31 ALT 58 Alkaline Phosphatase 109 Total Protein 8.3 H Albumin 3.7 Globulin 4.6 H Albumin/Globulin Ratio 0.8 L Amylase 48 Lipase 170 Urine Color Urine Appearance Urine pH Ur Specific [place] Urine Protein Urine Glucose (UA) Urine Ketones Urine Blood Urine Nitrate Urine Bilirubin Urine Urobilinogen Ur Leukocyte Esterase Urine RBC Urine WBC Ur Squamous Epith Cells 03/29/19 16:47 WBC RBC Hgb Hct MCV MCH MCHC RDW Plt Count MPV Neut % (Auto) Lymph % (Auto) [place] % (Auto) Eos % (Auto) Baso % (Auto) Neut # (Auto) Lymph # (Auto) [place] # (Auto) Eos # (Auto) Baso # (Auto) Total Counted Neutrophils % (Manual) Lymphocytes % (Manual) Monocytes % (Manual) Platelet Estimate RBC Morphology Sodium Potassium Chloride Carbon Dioxide Anion Gap BUN Creatinine Estimated Creat Clear Estimated GFR Est GFR ( Amer) Glucose POC Glucose Lactate Calcium Total Bilirubin AST ALT Alkaline Phosphatase Total Protein Albumin Globulin Albumin/Globulin Ratio Amylase Lipase Urine Color Yellow Urine Appearance Clear Urine pH 7.0 Ur Specific [place] 1.010 Urine Protein Trace Urine Glucose (UA) Negative Urine Ketones Negative Urine Blood Trace-i Urine Nitrate Negative Urine Bilirubin Negative Urine Urobilinogen 0.2 Ur Leukocyte Esterase 2+ A Urine RBC 3-5 Urine WBC 10-20 Ur Squamous Epith Cells 5-10 Preliminary micro results at discharge 03/29/19 16:47 Urine Culture - Preliminary Urine,Clean Catch DS: Diagnosis - Discharge Diagnosis (1) Diverticulitis Status: Acute (2) Obesity (BMI 30.0-34.9) Status: Acute (3) UTI (urinary tract infection) Status: Acute (4) Hypokalemia Status: Acute (5) Diabetes mellitus Status: Acute Discharge Plan - Patient Discharge Instructions ACTIVITY: Continue current activity DIET: continue same diet Patient Instructions: Diverticulitis, DI for Diverticulitis, DI for Urinary Tract Infection (UTI) - Follow up Plan Disposition: Home, Self-Half-Way Medications: Home Medications Medication Instructions Recorded Confirmed Type Mupirocin [Bactroban 2% Ointment 1 applicatio TP BID 10/17/18 03/29/19 History 22gm tube] pregabalin 150 mg capsule 150 mg PO BID #60 cap 02/15/19 03/29/19 Rx aspirin 81 mg tablet,delayed 81 mg PO DAILY #30 tab 03/07/19 03/29/19 Rx release atorvastatin 40 mg tablet 40 mg PO DAILY #90 tab 03/07/19 03/29/19 Rx cholecalciferol (vitamin D3) 1,000 1,000 unit PO DAILY #90 cap 03/07/19 03/29/19 Rx unit capsule ergocalciferol (vitamin D2) 50,000 50,000 unit PO WEEKLY #14 cap 03/07/19 03/29/19 Rx unit capsule lisinopril 2.5 mg tablet 2.5 mg PO DAILY #90 tab 03/07/19 03/29/19 Rx escitalopram 20 mg tablet 20 mg PO DAILY #90 tab 03/25/19 03/29/19 Rx lisinopril 20 1 tab PO DAILY #90 tab 03/27/19 03/29/19 Rx mg-hydrochlorothiazide 25 mg tablet levoFLOXacin [Levaquin 500mg 500 mg PO DAILY #7 tab 03/30/19 Rx tab] metroNIDAZOLE [Flagyl 500mg 500 mg PO Q8H #21 tab 03/30/19 Rx Tablet] Prescriptions/Medication Reconciliation: New metroNIDAZOLE [Flagyl 500mg Tablet] 500 mg PO Q8H #21 tab levoFLOXacin [Levaquin 500mg tab] 500 mg PO DAILY #7 tab Continued pregabalin 150 mg capsule 150 mg PO BID #60 cap lisinopril 2.5 mg tablet 2.5 mg PO DAILY #90 tab ergocalciferol (vitamin D2) 50,000 unit capsule 50,000 unit PO WEEKLY #14 cap cholecalciferol (vitamin D3) 1,000 unit capsule 1,000 unit PO DAILY #90 cap escitalopram 20 mg tablet 20 mg PO DAILY #90 tab lisinopril 20 mg-hydrochlorothiazide 25 mg tablet 1 tab PO DAILY #90 tab atorvastatin 40 mg tablet 40 mg PO DAILY #90 tab aspirin 81 mg tablet,delayed release 81 mg PO DAILY #30 tab Mupirocin [Bactroban 2% Ointment 22gm tube] 1 applicatio TP BID - Problem Reconciliation Problems Reviewed?: Yes
== END 2019-03-30 12:20 | disposition home or self-care (01) ==
LOC: ER 16:43 → 2ND 20:17 → INTOOBSV 21:29 → 2ND 21:30
PROVIDERS: ADMIT Emergency Medicine; ATTEND Emergency Medicine
CPT/HCPCS: 36415; 74177; 80048; 80053; 81001; 82150; 82962; 83605; 83690; 85007; 85025; 87086; 96365; 96367; 96372; 96375; 99284; G0378; J1956; Q9967

== ENCOUNTER → 2019-05-24 13:03 | Outpatient (CLI) | payer MEDICARE, SELFPAY ==
--- NOTE | 2019-05-24 13:06 | MM_ITS ---
PROCEDURE: MM DIG SCREENING MAMM BI W/CAD CLINICAL INDICATION: screening There is a history of breast cancer patient's paternal grandmother and 4 maternal aunts and maternal cousins COMPARISON: The patient states she has had previous mammograms at [facility] but we have checked and they have no record of previous mammograms. TECHNIQUE: Standard CC and MLO images were obtained. R2 CAD reviewed. FINDINGS: Moderate scattered fibroglandular densities are seen throughout both breast and the findings of bilateral and symmetrical. There are few benign-appearing microcalcifications in each breast. There are several small normal appearing nodes in both axilla. There is no suspicious lesion and no suspicious microcalcifications. IMPRESSION: Fibrofatty parenchyma with no suspicious lesions seen BI-RAD Category: 2 Benign Finding(s) FOLLOW-UP: 1YR 1 Year Follow-up (A letter has been sent to the patient regarding results of the study.) Dictated by: Dr. Christopher Archuleta MD 05/28/2019 09:[address] Christopher Archuleta MD in [place] 05/28/2019 09:16
== END ==
PROVIDERS: PCP Emergency Medicine; Visit Provider Emergency Medicine
DX: Z12.31 Encounter for screening mammogram for malignant neoplasm of breast (principal)
CPT/HCPCS: 77067

== ENCOUNTER → 2020-04-16 11:13 | Outpatient (CLI) | payer MEDICARE, SELFPAY | PROVIDERS: PCP Emergency Medicine; Visit Provider Physician Assistant | DX: Z03.818 Encounter for observation for suspected exposure to other biological agents ruled out (principal) | CPT/HCPCS: U0003 ==

== ENCOUNTER → 2020-05-15 15:15 | Outpatient (CLI) | payer MEDICARE, SELFPAY ==
[2020-05-15 16:40] LABS: Basophils # 0.1 K/mm3 (0-0.2); Basophils % 0.7 % (0.1-2.0); Eosinophils # 0.3 K/mm3 (0.0-0.4); Eosinophils % 3.9 % (0.1-12.0); Hematocrit 39.9 % (37.0-47.0); Hemoglobin 13.7 g/dL (12.2-16.2); Lymphocytes # 2.1 K/mm3 (0.7-4.5); Lymphocytes % 29.2 % (10-50); Mean Corpuscular HGB Conc 34.4 g/dL (31.8-35.4); Mean Corpuscular Hemoglobin 31.9 pg (27.0-31.2); Mean Corpuscular Volume 92.7 fl (81-99); Mean Platelet Volume 10.3 fl (7.4-10.4); Monocytes # 0.7 K/mm3 (0.1-1.0); Monocytes % 9.5 % (1.7-9.3); Neutrophils # 4.1 K/mm3 (1.8-7.8); Neutrophils % 56.7 % (37.0-80.0); Platelet Count 386 K/mm3 (142-424); Red Blood Count 4.31 M/mm3 (4.20-5.40); Red Cell Distribution Width 13.3 % (11.5-17.5); White Blood Count 7.2 K/mm3 (4.8-10.8)
[2020-05-15 16:44] LABS: Alanine Aminotransferase 36 U/L (12-78); Albumin Level 4.6 g/dl (3.5-5.0); Albumin/Globulin Ratio 1.4 (1.1-1.8); Alkaline Phosphatase 90 U/L (38-126); Anion Gap 13.8 mEq/L (5-15); Aspartate Amino Transferase 39 U/L (14-36); Bilirubin,Total 0.5 mg/dl (0.2-1.3); Blood Urea Nitrogen 14 mg/dl (7-17); Calcium 10.3 mg/dl (8.4-10.2); Carbon Dioxide 31 mmol/L (22.0-30.0); Chloride 97 mmol/L (98-107); Estimated Glomerular Filt Rate 62 ml/min (>60); GFR (African American) 75 ML/MIN (>60); Globulin 3.3 g/dL (1.3-3.2); Glucose 125 mg/dl (74-100); HDL Cholesterol 56 mg/dl (40-60); Potassium 3.8 mmoL/L (3.5-5.1); Sodium 138 mmol/L (136-145); Total Protein,Serum 7.9 g/dl (6.3-8.2); Uric Acid 6.9 mg/dl (2.5-6.2)
[2020-05-15 16:46] LABS: Triglycerides 435 mg/dl (30-150)
[2020-05-15 16:55] LABS: Direct LDL Cholesterol 189.57 mg/dL (100-129)
[2020-05-15 17:00] LABS: Chol/HDL Ratio 6.2 (1-3.5); Cholesterol 348 mg/dl (140-200)
[2020-05-15 17:01] LABS: 25-OH Vitamin D, Total 33.5 ng/mL (30-100)
[2020-05-15 17:02] LABS: Free T4 (Free Thyroxine) 1.03 ng/dl (0.78-2.19)
[2020-05-15 17:06] LABS: Erythrocyte Sedimentation Rate 23 mm/hr (0-30)
[2020-05-15 17:15] LABS: Thyroid Stimulating Hormone 1.99 uIU/mL (0.465-4.68)
[2020-05-15 18:50] LABS: Hemoglobin A1C 6.2 % (4.0-6.0)
[2020-05-17 13:01] LABS: RA Latex Turbid. <10.0 IU/mL (0.0-13.9)
[2020-05-18 18:10] LABS: Antinuclear Antibodies, IFA Positive (.)
== END ==
PROVIDERS: Visit Provider Emergency Medicine
DX: E11.9 Type 2 diabetes mellitus without complications (principal); K57.92 Diverticulitis of intestine, part unspecified, without perforation or abscess without bleeding; E66.9 Obesity, unspecified; E55.9 Vitamin D deficiency, unspecified; Z79.84 Long term (current) use of oral hypoglycemic drugs
CPT/HCPCS: 80053; 80061; 82306; 83036; 84439; 84443; 84550; 85025; 85651; 86038; 86431

== ENCOUNTER → 2020-05-26 17:14 | Outpatient (CLI) | payer MEDICARE, SELFPAY ==
--- NOTE | 2020-05-26 17:24 | XR_ITS ---
PROCEDURE: XR WRIST LT 2V CLINICAL INDICATION: pain COMPARISON: No exams were available for comparison FINDINGS: No fracture or dislocation. No lytic or blastic change. There is normal mineralization. The joint spaces are well-preserved. No significant degenerative/arthritic changes. No erosive changes evident. Other findings:None. IMPRESSION: No acute findings. Dictated by: Bright Patel MD 05/26/2020 17:36 Bright Patel MD in [facility] 05/26/2020 17:36
== END ==
PROVIDERS: PCP Emergency Medicine; Visit Provider Emergency Medicine
DX: M25.532 Pain in left wrist
CPT/HCPCS: 73100

== ENCOUNTER → 2020-11-06 18:03 | Outpatient (CLI) | payer MEDICARE, SELFPAY ==
[2020-11-06 18:28] LABS: Basophils % 0.6 % (0.1-2.0); Eosinophils # 0.1 K/mm3 (0.0-0.4); Eosinophils % 1.8 % (0.1-12.0); Hematocrit 38.3 % (37.0-47.0); Hemoglobin 12.7 g/dL (12.2-16.2); Lymphocytes # 1.1 K/mm3 (0.7-4.5); Lymphocytes % 14.8 % (10-50); Mean Corpuscular HGB Conc 33.2 g/dL (31.8-35.4); Mean Corpuscular Hemoglobin 31.2 pg (27.0-31.2); Mean Corpuscular Volume 93.9 fl (81-99); Mean Platelet Volume 9.7 fl (7.4-10.4); Monocytes # 0.5 K/mm3 (0.1-1.0); Monocytes % 6.2 % (1.7-9.3); Neutrophils # 5.8 K/mm3 (1.8-7.8); Neutrophils % 76.7 % (37.0-80.0); Platelet Count 312 K/mm3 (142-424); Red Blood Count 4.08 M/mm3 (4.20-5.40); Red Cell Distribution Width 13.9 % (11.5-17.5); White Blood Count 7.6 K/mm3 (4.8-10.8)
[2020-11-06 18:38] LABS: Alanine Aminotransferase 34 U/L (12-78); Albumin Level 4.9 g/dl (3.5-5.0); Albumin/Globulin Ratio 1.6 (1.1-1.8); Alkaline Phosphatase 83 U/L (38-126); Anion Gap 16.8 mEq/L (5-15); Aspartate Amino Transferase 43 U/L (14-36); Bilirubin,Total 0.4 mg/dl (0.2-1.3); Blood Urea Nitrogen 17 mg/dl (7-17); Carbon Dioxide 25 mmol/L (22.0-30.0); Chloride 101 mmol/L (98-107); Estimated Glomerular Filt Rate 62 ml/min (>60); GFR (African American) 75 ML/MIN (>60); Glucose 120 mg/dl (74-100); HDL Cholesterol 51 mg/dl (40-60); Potassium 3.8 mmoL/L (3.5-5.1); Sodium 139 mmol/L (136-145); Total Protein,Serum 7.9 g/dl (6.3-8.2)
[2020-11-06 18:49] LABS: Direct LDL Cholesterol 187.91 mg/dL (100-129)
[2020-11-06 18:55] LABS: 25-OH Vitamin D, Total 43.9 ng/mL (30-100); Free T4 (Free Thyroxine) 1.06 ng/dl (0.78-2.19)
[2020-11-06 18:56] LABS: Chol/HDL Ratio 6.7 (1-3.5); Cholesterol 342 mg/dl (140-200); Triglycerides 410 mg/dl (30-150)
[2020-11-06 19:08] LABS: Thyroid Stimulating Hormone 0.84 uIU/mL (0.465-4.68)
[2020-11-06 19:21] LABS: Hemoglobin A1C 6.5 % (4.0-6.0)
== END ==
PROVIDERS: Visit Provider Emergency Medicine
DX: E11.9 Type 2 diabetes mellitus without complications (principal); E55.9 Vitamin D deficiency, unspecified; Z68.36 Body mass index [BMI] 36.0-36.9, adult; Z79.899 Other long term (current) drug therapy
CPT/HCPCS: 80053; 80061; 82306; 83036; 84439; 84443; 85025

== ENCOUNTER 2021-02-14 11:51 | Emergency (ER) | payer MEDICARE, SELFPAY ==
[2021-02-14 12:23] VITALS: BP 127/76; PULSE 81; RESP 16; TEMP 36.9; O2SAT 94; BMI 34.0
--- NOTE | 2021-02-14 12:37 | HMH.EDUTC ---
[facility] [place] Clinical Impression: Viral syndrome Disposition: Home, Self-Care Condition on Discharge: Good Instructions: DI for Viral Syndrome Additional Instructions: Drink plenty of fluids. Take tylenol or ibuprofen for pain or fever. Take the medications as directed. Follow up with your regular doctor. GO TO THE ER FOR ANY WORSENING SYMPTOMS Prescriptions: Ondansetron [Zofran 4mg ODT] 4 mg PO Q8HP PRN #12 tab.rapdis PRN Reason: Nausea Transmission Status: Received by [facility] Azithromycin [Z-Niels 250mg Tab*] 250 mg PO UD DOSE PK #6 tab Transmission Status: Received by [facility] Referrals: Anoop Dalton MD [Primary Care Provider] - Time of Disposition: 13:09 Medical Decision Making - Medical Records Medical records reviewed: No: I reviewed the patient's medical records. - Abelardo Inquiry Pt receiving controlled substance: No Vital Signs: 02/14/21 12:23 02/14/21 13:25 Temperature 98.5 F 0 F L Temperature Source Oral Pulse Rate 0 L Pulse Rate [Right Radial] 81 Respiratory Rate 16 0 L Blood Pressure 000/00 L Blood Pressure [Right Arm] 127/76 Blood Pressure Mean [Right Arm] 93 Blood Pressure Source [Right Arm] Automatic Cuff Blood Pressure Position [Right Arm] Sitting 02 Sat by Pulse Oximetry 94 L Oxygen Delivery Method Room Air [facility] [place] - General Stated complaint: chills, fever, cough Time Seen by Provider: 02/14/21 12:39 Mode of Arrival: Ambulatory Source of Information: Patient Limitations: No Limitations Description of Symptoms (Recalled from Triage Doc. by RN): Pt c/o congestion, stopped up ears, fever, vomiting HEENT Symptoms (Recalled from RN notes): Yes (congestion, ears stopped up) Resp Symptoms (Recalled from RN notes): No Skin Symptoms (Recalled from RN notes): No MS Symptoms (Recalled from RN notes): No Functional Status (Recalled from RN notes): n/a - History of Present Illness Provider Complaint: She states that for the past 3 days she has had chills, body aches, nasal congestion and she has felt bad. She has been vacinated against covid around 2 months ago. - Related Data Home Medications Medication Instructions Recorded Confirmed alendronate 70 mg tablet 70 mg PO WEEKLY 01/15/21 01/15/21 methotrexate (PF) 25 mg/0.5 mL 25 mg SQ WEEKLY 01/15/21 01/15/21 subcutaneous auto-injector Previous Rx's Medication Instructions Recorded aspirin 81 mg tablet,delayed 81 mg PO DAILY #30 tab 03/07/19 release cholecalciferol (vitamin D3) 25 See Rx Instructions .ROUTE 09/07/20 mcg (1,000 unit) capsule .COMPLEX #90 capsule escitalopram oxalate 20 mg tablet See Rx Instructions .ROUTE 09/11/20 .COMPLEX #90 tab lisinopril 20 See Rx Instructions .ROUTE 12/01/20 mg-hydrochlorothiazide 25 mg tablet .COMPLEX #90 tab ergocalciferol (vitamin D2) 1,250 See Rx Instructions .ROUTE 01/04/21 mcg (50,000 unit) capsule .COMPLEX #14 cap gabapentin 300 mg capsule 300 mg PO TID 30 Days #90 cap 01/15/21 metronidazole 375 mg capsule 375 mg PO BID 10 Days #20 cap 01/20/21 Azithromycin [Z-Niels 250mg Tab*] 250 mg PO UD DOSE PK #6 tab 02/14/21 Ondansetron [Zofran 4mg ODT] 4 mg PO Q8HP PRN #12 tab.rapdis 02/14/21 Allergies Allergy/AdvReac Type Severity Reaction Status Date / Time No Known Allergies Allergy Verified 01/15/21 09:19 - Worker's Comp Is this a Worker's Comp case?: No [facility] History - Hepatitis A Screen Drug use history?: No High risk sexual behaviors?: No History of sexually transmitted infection?: No Currently employed?: No Childcare worker?: No Do you have indoor plumbing?: Yes Do you have electricity?: Yes Attestation statement:: This patient has been screened for Hepatitis A risk factors. I have reviewed the patient's past medical history: Yes 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: Reports:: Anxiety, Depression, Diabetes Mellitus Type 2, Gastroesophageal Reflux Disease(GERD), Hyperlipidemia, Hypertension Denies:
[2021-02-14 13:25] VITALS: BP 000/00; PULSE 0; RESP 0; TEMP -17.7; TEMP 0
[2021-02-17 13:16] LABS: UTC Strep Screen (Rapid) Negative (Negative)
== END 2021-02-14 13:26 | disposition home or self-care (01) ==
PROVIDERS: Emergency Provider Nurse Practitioner Family; PCP Emergency Medicine
DX: U07.1 COVID-19 (principal); B34.9 Viral infection, unspecified; F41.8 Other specified anxiety disorders; E11.9 Type 2 diabetes mellitus without complications; I10 Essential (primary) hypertension; E78.5 Hyperlipidemia, unspecified; K21.9 Gastro-esophageal reflux disease without esophagitis
CPT/HCPCS: G0463; 87880; 99203; U0003

== ENCOUNTER 2021-02-21 18:29 | Emergency (ER) | payer MEDICARE, SELFPAY ==
[2021-02-21 18:30] VITALS: BP 152/82; PULSE 108; RESP 18; TEMP 38.1; O2SAT 94; BMI 37.2
--- NOTE | 2021-02-21 18:43 | HMH.EDABDPAI ---
ED Disposition Clinical Impression: Gastroenteritis Disposition: Home, Self-Care Condition on Discharge: Fair Instructions: DI for Diarrhea and Traveler's Diarrhea -- Adult, DI for Nausea -- Adult, Nausea and Vomiting-Adult Additional Instructions: Stick to a clear liquid diet for the next day or 2. Then slowly advance her diet by adding solids. Take all medications as prescribed. Return to the emergency department immediately if you feel worse in any way. Take [id number] diarrhea medication as needed. Please follow-up with your primary care physician if you do not feel better within the next week or so. Prescriptions: Ondansetron [Ondansetron Odt 8mg Tab] 8 mg PO QID 4 Days #16 tab Transmission Status: Received by [facility] Referrals: Anoop Dalton MD [Primary Care Provider] - - Critical Care Critical Care Time: No Attestation: On 02/21/21, the high probability of a clinically significant, sudden or life threatening deterioration of the following system(s) required my full and direct attention, intervention and personal management. The time I documented below is in addition to time spent performing reported procedures but includes the following listed in this critical care notation. Medical Decision Making - Medical Records Medical records reviewed: Yes: I reviewed the patient's medical records. - Abelardo Inquiry Pt receiving controlled substance: No Vital Signs: 02/21/21 18:30 02/21/21 19:04 02/21/21 19:30 Temperature 100.6 F H Temperature Source Oral Pulse Rate 109 H 115 H Pulse Rate [Right] 108 H Respiratory Rate 18 27 H 22 Blood Pressure 148/74 H Blood Pressure [Right Arm] 152/82 H Blood Pressure Mean 102 Blood Pressure Mean [Right Arm] 105 02 Sat by Pulse Oximetry 94 L 91 L 97 Oxygen Delivery Method Room Air - Lab Data Lab results reviewed: Yes: I reviewed the patient's lab results. Lab Results 02/21/21 18:55: WBC 5.5, RBC 3.69 L, Hgb 11.9 L, Hct 33.9 L, MCV 92.0, MCH 32.2 H, MCHC 35.0, RDW 15.0, Plt Count 187, MPV 8.9, Neut % (Auto) 72.0, Lymph % (Auto) 17.6, [place] % (Auto) 7.9, Eos % (Auto) 1.3, Baso % (Auto) 1.1, Neut # (Auto) 4.0, Lymph # (Auto) 1.0, [place] # (Auto) 0.4, Eos # (Auto) 0.1, Baso # (Auto) 0.1 02/21/21 18:55: Sodium 133 L, Potassium 3.3 L, Chloride 94 L, Carbon Dioxide 28, Anion Gap 14.3, BUN 8, Creatinine 0.70, Estimated Creat Clear 75, Estimated GFR 83, Est GFR ( Amer) 100, Glucose 155 H, Calcium 8.8, Total Bilirubin 0.6, AST 63 H, ALT 50, Alkaline Phosphatase 83, Total Protein 7.8, Albumin 4.4, Globulin 3.4 H, Albumin/Globulin Ratio 1.3, Lipase 129 02/21/21 19:29: Urine Color Yellow, Urine Appearance Sl cloudy, Urine pH 6.0, Ur Specific [place] 1.025, Urine Protein Trace, Urine Glucose (UA) Negative, Urine Ketones Negative, Urine Blood Trace-i, Urine Nitrate Negative, Urine Bilirubin Negative, Urine Urobilinogen 0.2, Ur Leukocyte Esterase Negative, Urine RBC Occasional, Urine WBC Occasional, Ur Squamous Epith Cells 3-5, Urine Bacteria Trace Result diagrams: 02/21/21 18:55 02/21/21 18:55 Orders (Tests/Meds): ED MEDICATIONS Discontinued Medications Generic Name Dose Route Start Last Admin Trade Name Freq PRN Reason Stop Dose Admin Ondansetron HCl 4 mg 02/21/21 18:46 02/21/21 19:07 Ondansetron 4mg/2ml Vial IV 02/21/21 18:47 4 mg ONCE ONE Administration Medical Decision Narrative: The patient presents to the emergency department complaining of a 14-day history of nausea vomiting and diarrhea. She was recently diagnosed with Covid about 10 days ago. She is fully vaccinated since September of this year. The patient's work-up in the emergency department did not reveal any life-threatening or dangerous conditions causing her symptoms. The patient's oxygen saturations were 97% on room air. Her vital signs are stable. She does have a fever which is expected with Covid. She was given Zofran in the emergency d
[2021-02-21 19:04] VITALS: PULSE 109; RESP 27; O2SAT 91
[2021-02-21 19:06] LABS: Basophils # 0.1 K/mm3 (0-0.2); Basophils % 1.1 % (0.1-2.0); Eosinophils # 0.1 K/mm3 (0.0-0.4); Eosinophils % 1.3 % (0.1-12.0); Hematocrit 33.9 % (37.0-47.0); Hemoglobin 11.9 g/dL (12.2-16.2); Lymphocytes % 17.6 % (10-50); Mean Corpuscular Hemoglobin 32.2 pg (27.0-31.2); Mean Platelet Volume 8.9 fl (7.4-10.4); Monocytes # 0.4 K/mm3 (0.1-1.0); Monocytes % 7.9 % (1.7-9.3); Platelet Count 187 K/mm3 (142-424); Red Blood Count 3.69 M/mm3 (4.20-5.40); White Blood Count 5.5 K/mm3 (4.8-10.8)
[2021-02-21 19:10] LABS: Chloride 94 mmol/L (98-107); Potassium 3.3 mmoL/L (3.5-5.1); Sodium 133 mmol/L (136-145)
[2021-02-21 19:12] LABS: Blood Urea Nitrogen 8 mg/dl (7-17); Creatinine Clearance Estimated 75 mL/min (50-200); Estimated Glomerular Filt Rate 83 ml/min (>60); GFR (African American) 100 ML/MIN (>60)
[2021-02-21 19:13] LABS: Alanine Aminotransferase 50 U/L (12-78); Albumin Level 4.4 g/dl (3.5-5.0); Albumin/Globulin Ratio 1.3 (1.1-1.8); Alkaline Phosphatase 83 U/L (38-126); Anion Gap 14.3 mEq/L (5-15); Aspartate Amino Transferase 63 U/L (14-36); Bilirubin,Total 0.6 mg/dl (0.2-1.3); Calcium 8.8 mg/dl (8.4-10.2); Carbon Dioxide 28 mmol/L (22.0-30.0); Globulin 3.4 g/dL (1.3-3.2); Glucose 155 mg/dl (74-100); Lipase 129 U/L (23-300); Total Protein,Serum 7.8 g/dl (6.3-8.2)
[2021-02-21 19:30] VITALS: BP 148/74; PULSE 115; RESP 22; O2SAT 97
[2021-02-21 19:32] LABS: Microscopic, Urine URINE MICROSCOPIC (MICROSCOPIC)
[2021-02-21 19:35] LABS: Appearance,Urine SL CLOUDY (Clear); Bilirubin,Urine Negative (Negative); Blood, Urine TRACE-I (Negative); Color,Urine YELLOW (Yellow); Glucose,Urine (UA) Negative (Negative); Ketones,Urine Negative (Negative); Leukocyte Esterase,Urine Negative (Negative); Nitrate,Urine Negative (Negative); Protein,Urine TRACE (Negative); Specific Gravity, Urine 1.025 (1.005-1.030); Urobilinogen,Urine 0.2 EU/dl (0.2)
[2021-02-21 19:47] LABS: Bacteria,Urine Trace /lpf; RBC,Urine Occasional #/hpf (0-3); WBC,Urine Occasional #/hpf (0-3)
[2021-02-21 20:20] VITALS: BP 139/82; PULSE 110; RESP 22; TEMP 37.4; O2SAT 95
== END 2021-02-21 20:22 | disposition home or self-care (01) ==
PROVIDERS: Emergency Provider Emergency Medicine; PCP Emergency Medicine
DX: K52.9 Noninfective gastroenteritis and colitis, unspecified (principal); U07.1 COVID-19; F41.8 Other specified anxiety disorders; I10 Essential (primary) hypertension; E78.5 Hyperlipidemia, unspecified; K21.9 Gastro-esophageal reflux disease without esophagitis
CPT/HCPCS: 80053; 81001; 83690; 85025; 96375; 99283; J2405

== ENCOUNTER → 2021-09-20 16:36 | Outpatient (CLI) | payer MEDICARE, SELFPAY ==
[2021-09-20 14:10] LABS: Alanine Aminotransferase 34 U/L (12-78); Albumin Level 4.7 g/dl (3.5-5.0); Albumin/Globulin Ratio 1.6 (1.1-1.8); Alkaline Phosphatase 85 U/L (38-126); Anion Gap 17.5 mEq/L (5-15); Aspartate Amino Transferase 38 U/L (14-36); Bilirubin,Total 0.5 mg/dl (0.2-1.3); Blood Urea Nitrogen 17 mg/dl (7-17); Calcium 9.4 mg/dl (8.4-10.2); Carbon Dioxide 26 mmol/L (22.0-30.0); Chloride 94 mmol/L (98-107); Chol/HDL Ratio 7.2 (1-3.5); Cholesterol 318 mg/dl (140-200); Estimated Glomerular Filt Rate 71 ml/min (>60); GFR (African American) 86 ML/MIN (>60); Glucose 135 mg/dl (74-100); HDL Cholesterol 44 mg/dl (40-60); Potassium 4.5 mmoL/L (3.5-5.1); Sodium 133 mmol/L (136-145); Total Protein,Serum 7.7 g/dl (6.3-8.2)
[2021-09-20 14:12] LABS: Triglycerides 435 mg/dl (30-150)
[2021-09-20 14:13] LABS: Hemoglobin A1C 6.7 % (4.0-6.0)
[2021-09-20 14:21] LABS: Direct LDL Cholesterol 162.23 mg/dL (100-129)
[2021-09-20 14:28] LABS: Free T4 (Free Thyroxine) 1.58 ng/dl (0.78-2.19)
[2021-09-20 14:41] LABS: Thyroid Stimulating Hormone 2.84 uIU/mL (0.465-4.68)
== END ==
PROVIDERS: Visit Provider Emergency Medicine
DX: E11.9 Type 2 diabetes mellitus without complications (principal); E55.9 Vitamin D deficiency, unspecified; Z79.899 Other long term (current) drug therapy
CPT/HCPCS: 80053; 80061; 82306; 83036; 84439; 84443

== ENCOUNTER → 2022-03-10 07:28 | Outpatient (CLI) | payer SELFPAY ==
--- NOTE | 2022-03-10 07:34 | CT_ITS ---
FINAL REPORT CLINICAL HISTORY: .family hx coronary artery disease FINDINGS: CT CORONARY CALCIUM SCORE W/O TECHNIQUE: Thin-section axial images were obtained through the heart and coronary arteries per CT coronary calcium score protocol. This study was performed with techniques to keep radiation doses as low as reasonably achievable (ALARA). Individualized dose reduction techniques using automated exposure control or adjustment of mA and/or kV according to the patient's size were employed. FINDINGS: On the axial images, there is calcification within the left main, left anterior descending and right coronary arteries. This gives a coronary artery calcium score of 1195 based on the Agatston scale. This coronary artery calcium score places the patient within the 91 percentile based on age and gender. Limited evaluation of the chest reveals heart size to be normal. There is a small pericardial effusion. There is no pleural effusion. Calcified granuloma is seen in the lingula. Limited evaluation of the lungs reveal no suspicious nodule. IMPRESSION: Coronary artery calcium score of 1195 places the patient in the 91 percentile range for gender and age.. Reviewed, Interpreted and Dictated by Viviana Crcoker MD Transcribed by Zaida King Authenticated and [facility]
== END ==
PROVIDERS: PCP Emergency Medicine; Visit Provider Nurse Practitioner Family
DX: R07.9 Chest pain, unspecified (principal); R06.00 Dyspnea, unspecified; I10 Essential (primary) hypertension; E78.5 Hyperlipidemia, unspecified; E11.9 Type 2 diabetes mellitus without complications; E66.9 Obesity, unspecified; R20.0 Anesthesia of skin; R60.0 Localized edema; Z82.49 Family history of ischemic heart disease and other diseases of the circulatory system
CPT/HCPCS: 75571

== ENCOUNTER → 2022-03-14 06:27 | Outpatient (CLI) | payer MEDICARE, SELFPAY ==
--- NOTE | 2022-03-14 06:28 | CA_ITS ---
APPROVED REPORT EXAM: Comprehensive 2D, Doppler, and color-flow Echocardiogram Clinical Review Specialist: Sara Shah CRT Ht: 5 ft 1 in Wt: 197lbs BSA: 1.88 BP: 122/70 mmHg Indications: Chest Pain, Shortness of Breath, Diabetes, Obesity, Palpitations, Peripheral Edema, Hyperlipidemia, Hypertension/HDD 2D Dimensions LVOT 1.74 cm (M/F) 1.5-2.5 LA Volume 39.10 mL LA Volume Index 20.80 mL/m2 (M/F) 16-34 M-Mode Dimensions RVDd 2.34 cm (0.9-2.6) LA Diam 3.21 cm (1.9-4.0) LVDd 4.00 cm (3.5-5.7) Ao Diam 3.35 cm (2.0-3.7) LVDs 2.68 cm (3.5-5.7) IVSd 1.37 cm (0.6-1.1) PWd 0.75 cm (0.6-1.1) EF (Teich) 62.10% FS 33.00% EDV (Teich) 70.00 mL TAPSE 1.87 (<1.7) ESV (Teich) 26.50 mL LV Diastology E Decel Time 220.00 (160-240 msec) E/A Ratio 0.90 MED E' 6.80 (< 7 cm/sec) MED A' 11.60 cm/s E'/MED E' Ratio 9.62 (>14) LAT E' 9.10 (<10 cm/sec) LAT A' 12.60 cm/s E/LAT E' Ratio 7.19 (>14) Aortic Valve AO Peak GR. 7.60 mmHg Mitral Valve MV A Velocity 72.00 (40-130 cm/s) E/A Ratio 0.90 MV Decel. Time 220.00 (160-240 ms) Pulmonary Valve PV Peak Velocity 96.00 (50-150 cm/s) Tricuspid Valve TR P. Velocity 222.00 cm/s RAP Estimate 10.00 mmHg RVSP 29.70 mmHg Left Ventricle Left atrium is mildly enlarged, left ventricle is normal size mild concentric left ventricular hypertrophy, estimated ejection fraction 55% with no regional wall motion abnormality, grade 1 diastolic dysfunction seen without tissue Doppler evidence of raise left atrial pressure. Right Ventricle Right atrium and right ventricle are normal size and contractility. Aortic Valve Aortic valve is thickened and calcified without aortic stenosis or aortic insufficiency. Mitral Valve Mitral valve is grossly normal, there is trace mitral regurgitation. Tricuspid Valve Tricuspid valve grossly normal, there is trace tricuspid regurgitation, tricuspid regurgitation jet velocity is inadequate for calculation of the right ventricular systolic pressure. Pulmonic Valve Pulmonic valve is poorly visualized. Great Vessels Aortic root is normal size. Inferior vena cava is poorly visualized. Pericardium No significant pericardial effusion noted. Conclusion 1. Mildly enlarged left rhythm, normal left ventricular size, mild concentric left ventricular hypertrophy, estimated ejection fraction 55% with no regional wall motion abnormality, grade 1 diastolic dysfunction seen without tissue Doppler evidence of raise left atrial pressure. 2. Thickened and calcified aortic valve without aortic stenosis aortic insufficiency. 3. Trace mitral and tricuspid regurgitation. 4. No significant pericardial effusion noted. 5. Inferior vena cava is poorly visualized Electronically signed by : El Buchanan MD 03/14/2022 20:25:01
--- NOTE | 2022-03-14 06:28 | CA_ITS ---
APPROVED REPORT Exam: Pharmacologic Technologist: Stephanie Lange, Ht: 5 ft 1 in Wt: 296 lbs BSA: 2.23 m2 HR: 67 bpm BP: 145/83 mmHg 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: HTN, Hyperlipidemia Medications: Omeprazole,,,,, Aspirin,,,,, Gabapentin,,,,, Escitalopram,,,,, Crestor,,,,, Methotrexate,,,,, Vit D3,,,,, BisOPROLOL,,,,, Aldactone,,,,, Celecoxib,,,,, Alendronate,,,,, Vit D2,,,,, Cardiac Risk Factors: HTN, Hyperlipidemia, FHX of CAD, Smoking Stress Test Details Test: LEXISCAN HR Resting HR: 71 bpm Max Heart Rate (APMHR): 150.646276 bpm Max HR Achieved: 105 bpm Target HR (85% APMHR): 127.176280 bpm % of APMHR: 70.00 Recovery HR: 76 bpm BP Resting BP: 145/83 mmHg Max BP: 153/75 mmHg Recovery BP: 153.0/75.0 mmHg ECG Clinical Exercise duration: 04:00 min Highest Stage Achieved: Exercise capacity: 1.0 METs Stress ECG Conclusion During lexiscan pt experinced SOA, no CP noted. No arrhythmias noted. <1.5mm ST changes. Test Summary REST . . . . . . . Sitting REST . . . . . . . Sitting REST 03:31 . . 71 . 145/ 83 . . Stage 1 01:00 . . 102 . . . . Stage 2 01:00 . . 87 . 129/ 63 . . Stage 3 01:00 . . 103 . 152/ 71 . . Stage 4 01:00 . . 93 . 148/ 80 . Stop exercise at 04:00 RECOVERY 01:00 . . 95 . . . . RECOVERY 02:00 . . 80 . . . . RECOVERY 03:00 . . 85 . 153/ 75 . . RECOVERY 03:32 . . 77 . 150/ 75 . . Electronically signed by : El Buchanan MD 03/14/2022 18:05:32
--- NOTE | 2022-03-14 06:28 | NM_ITS ---
APPROVED REPORT Exam: Nuclear Stress Test Indication: Chest pain, SOB, HTN, Abnormal EKG, DM, High cholesterol, Family history Patient Location: Outpatient Stress Tech: Stephanie Lange NM Tech:Rhianna Luther, ARRT, RT (R)(N) Ht: 5 ft 1 in Wt: 193 lbs Bra Size: B HR: 71 bpm BP: 145/83 mmHg BSA: 1.86 m2 TID: 1.13 BMI: 36.4 History: Chest pain, SOB, HTN, Abnormal EKG, DM, High cholesterol, Family history Procedure: Patient received a 0.4 mg of intravenous Lexiscan, resting heart rate 71 bpm, resting blood pressure 145/83 mmHg, with Lexiscan maximum heart rate achived was 105 bpm which is Less than 85 % of the maximum predicted heart rate and blood pressure was 153/75 mmHg. With Lexiscan, patient denied any complaint of chest pain. Electrocardiogram Resting electrocardiogram shows sinus rhythm nonspecific ST-T changes, with Lexiscan there is less than 1.[address] segment depression noted from the baseline EKG. The EKG portion of the Lexiscan is nondiagnostic. Cardiac Stress and Resting SPECT Images: Cardiac Stress and Resting SPECT images were obtained using technetium 99m Myoview 30.6 mCi stress and 10.12 mCi at rest. Gated SPECT for analysis of segmental wall motion and calculation of the ejection fraction also done. Prone images were also obtained. Cardiac stress and rest SPECT images show uniform myocardial activity without segmental perfusion abnormality, computer derived ejection fraction is 62% with no regional wall motion abnormality, right ventricle is normal size and contractility. Conclusion: 1. The EKG portion of the Lexiscan is nondiagnostic. 2. No scintigraphic evidence of reversible ischemia seen, computer derived ejection fraction 62% with no regional wall motion abnormality, right ventricle is normal size and contractility. 3. Normal Lexiscan Myoview study. Electronically signed by : El Buchanan MD 03/14/2022 18:10:26
--- NOTE | 2022-03-14 08:15 | HMH.ITSHM ---
Current Home Medications as stated by this patient Skye Price or guest experience representative. []SPIRONOLACTONE ROSUVASTATIN OMEPRAZOLE METHOTREXATE LISINOPRIL GABAPENTIN FOLIC ACID ESCITALOPRAM VITAMIN D2 VITAMIN D3 CELECOXIB BISOPROLOL ASA ALENDRONATE
== END ==
PROVIDERS: PCP Emergency Medicine; Visit Provider Nurse Practitioner Family
DX: E11.9 Type 2 diabetes mellitus without complications (principal); E66.9 Obesity, unspecified; E78.5 Hyperlipidemia, unspecified; I10 Essential (primary) hypertension; R06.00 Dyspnea, unspecified; R07.9 Chest pain, unspecified; R20.0 Anesthesia of skin; R42 Dizziness and giddiness; R60.0 Localized edema; R94.31 Abnormal electrocardiogram [ECG] [EKG]; Z82.49 Family history of ischemic heart disease and other diseases of the circulatory system; Z68.43 Body mass index [BMI] 50.0-59.9, adult
CPT/HCPCS: 78452; 93017; 93306; A9502; J2785

== ENCOUNTER → 2022-03-31 10:45 | Outpatient (CLI) | payer MEDICARE, SELFPAY ==
--- NOTE | 2022-03-31 10:45 | CA_ITS ---
FINAL REPORT TECHNIQUE: Color Doppler, duplex Doppler and yen scale sonography of the bilateral neck arterial vasculature was performed. Velocities were measured in the carotid arteries. Stenosis evaluation based on the validated velocity criteria. CLINICAL HISTORY: dizziness/hx tia,htn FINDINGS: The peak systolic velocity of the right common carotid artery is 112 cm/s. The peak systolic velocity of the right internal carotid artery is 82 cm/s and end diastolic velocity 29 cm/s. The ICA/CCA ratio is 0.8. A small amount of plaque is present. The right external carotid artery is patent. The right vertebral artery is patent with antegrade flow. The peak systolic velocity of the left common carotid artery is 110 cm/s. The peak systolic velocity of the left internal carotid artery is 103 cm/s and end diastolic velocity 19 cm/s. The ICA/CCA ratio is 1.0. A small amount of plaque is present. The left external carotid artery is patent.The left vertebral artery is patent with antegrade flow. IMPRESSION: Less than 50% bilateral carotid stenoses. Bilateral patent vertebral arteries with antegrade flow. If indicated, CTA or MRA could further evaluate. Reviewed, Interpreted and Dictated by Cisco Stokes III, MD Transcribed by Leonidas Alfaro Authenticated and . [facility]
[2022-03-31 11:40] LABS: Basophils # 0.1 K/mm3 (0-0.2); Basophils % 1.2 % (0.1-2.0); Eosinophils # 0.3 K/mm3 (0.0-0.4); Eosinophils % 4.4 % (0.1-12.0); Hemoglobin 12.3 g/dL (12.2-16.2); Lymphocytes # 1.6 K/mm3 (0.7-4.5); Lymphocytes % 26.1 % (10-50); Mean Corpuscular HGB Conc 33.2 g/dL (31.8-35.4); Mean Corpuscular Hemoglobin 32.6 pg (27.0-31.2); Mean Corpuscular Volume 98.2 fl (81-99); Mean Platelet Volume 8.1 fl (7.4-10.4); Monocytes # 0.7 K/mm3 (0.1-1.0); Neutrophils # 3.5 K/mm3 (1.8-7.8); Neutrophils % 57.3 % (37.0-80.0); Platelet Count 349 K/mm3 (142-424); Red Blood Count 3.77 M/mm3 (4.20-5.40); Red Cell Distribution Width 15.6 % (11.5-17.5)
[2022-03-31 12:22] LABS: Chloride 95 mmol/L (98-107)
[2022-03-31 12:23] LABS: Potassium 4.4 mmoL/L (3.5-5.1); Sodium 133 mmol/L (136-145)
[2022-03-31 12:25] LABS: Alanine Aminotransferase 32 U/L (12-78); Albumin Level 4.4 g/dl (3.5-5.0); Alkaline Phosphatase 73 U/L (38-126); Anion Gap 11.4 mEq/L (5-15); Aspartate Amino Transferase 41 U/L (14-36); Bilirubin,Indirect 0.2 mg/dL (0.0-0.9); Bilirubin,Total 0.2 mg/dl (0.2-1.3); Bilirubin,Unconjugated 0.4 mg/dL (0.0-1.1); Blood Urea Nitrogen 18 mg/dl (7-17); Carbon Dioxide 31 mmol/L (22.0-30.0); Cholesterol 284 mg/dl (140-200); Estimated Glomerular Filt Rate 71 ml/min (>60); GFR (African American) 86 ML/MIN (>60); Total Protein,Serum 7.3 g/dl (6.3-8.2); Triglycerides 320 mg/dl (30-150); VLDL Cholesterol 64 mg/dL (0-40)
[2022-03-31 12:26] LABS: Calcium 9.1 mg/dl (8.4-10.2); Chol/HDL Ratio 4.8 (1-3.5); Glucose 109 mg/dl (74-100); HDL Cholesterol 59 mg/dl (40-60); Magnesium 1.7 mg/dl (1.6-2.3)
[2022-03-31 12:37] LABS: Direct LDL Cholesterol 146.52 mg/dL (100-129)
[2022-03-31 12:41] LABS: Free T4 (Free Thyroxine) 0.97 ng/dl (0.78-2.19)
[2022-03-31 12:56] LABS: Thyroid Stimulating Hormone 0.88 uIU/mL (0.465-4.68)
== END ==
LOC: RT 10:45
PROVIDERS: PCP Emergency Medicine; Visit Provider Internal Medicine Cardiovascular Disease
DX: E11.9 Type 2 diabetes mellitus without complications (principal); E66.9 Obesity, unspecified; E78.5 Hyperlipidemia, unspecified; I10 Essential (primary) hypertension; R06.00 Dyspnea, unspecified; R07.9 Chest pain, unspecified; R20.0 Anesthesia of skin; R60.0 Localized edema; Z82.49 Family history of ischemic heart disease and other diseases of the circulatory system; Z86.73 Personal history of transient ischemic attack (TIA), and cerebral infarction without residual deficits; R42 Dizziness and giddiness; R94.31 Abnormal electrocardiogram [ECG] [EKG]; Z68.37 Body mass index [BMI] 37.0-37.9, adult
CPT/HCPCS: 36415; 80048; 80061; 80076; 83735; 83880; 84439; 84443; 85025; 93880

== ENCOUNTER 2022-06-11 11:11 | Emergency (ER) | payer MEDICARE, SELFPAY ==
[2022-06-11 13:08] VITALS: BP 124/79; PULSE 76; RESP 18; TEMP 36.7; O2SAT 98; BMI 36.6
--- NOTE | 2022-06-11 13:17 | EXP.UTC ---
Discharge Plan Disposition Patient Disposition: Home, Self-Care Condition: Good Prescriptions Prescriptions: New doxycycline hyclate 100 mg tablet 100 mg PO BID Qty: 20 0RF No Action folic acid 1 mg tablet 1 mg PO TID celecoxib 200 mg capsule 200 mg PO BID aspirin [Adult Low Dose Aspirin] 81 mg tablet,delayed release (DR/EC) 81 mg PO DAILY Qty: 30 5RF bisoprolol fumarate 5 mg tablet 5 mg PO QDAY Qty: 30 5RF cholecalciferol (vitamin D3) [Vitamin D3] 25 mcg (1,000 unit) capsule See Rx Instructions .ROUTE .COMPLEX Qty: 90 0RF Dose Instruction: Take 1 capsule DAILY for Supplement; administer with meals Rx Instructions: Take 1 capsule DAILY for Supplement; administer with meals ergocalciferol (vitamin D2) 1,250 mcg (50,000 unit) capsule See Rx Instructions .ROUTE .COMPLEX Qty: 14 0RF Dose Instruction: TAKE 1 CAPSULE BY MOUTH WEEKLY FOR SUPPLEMENT Rx Instructions: TAKE 1 CAPSULE BY MOUTH WEEKLY FOR SUPPLEMENT lisinopril-hydrochlorothiazide 20-25 mg tablet See Rx Instructions .ROUTE .COMPLEX Qty: 90 0RF Dose Instruction: TAKE 1 TABLET BY MOUTH EVERY DAY Rx Instructions: TAKE 1 TABLET BY MOUTH EVERY DAY omeprazole 40 mg capsule,delayed release(DR/EC) 40 mg PO DAILY Qty: 30 3RF spironolactone [Aldactone] 25 mg tablet 25 mg PO DIRECTED Qty: 30 2RF Rx Instructions: Take 1 tablet on Monday morning triamcinolone acetonide 0.1 % cream 1 applic TOPICAL BID Qty: 80 2RF gabapentin 600 mg tablet 600 mg PO TID Qty: 90 2RF methotrexate (PF) 25 mg/0.5 mL auto-injector 25 mg SQ WEEKLY alendronate 70 mg tablet 70 mg PO WEEKLY duloxetine 60 mg capsule,delayed release(DR/EC) 60 mg PO DAILY rosuvastatin [Crestor] 20 mg tablet 20 mg PO DAILY Qty: 30 5RF Referrals Follow up/Referrals: Anoop Dalton MD [Primary Care Provider] - See instructions Activity Restrictions/Add. Instructions Additional Instructions/Restrictions: Take medication as prescribed Warm compresses to area 4-5 times daily may help with opening and drainage of stye Follow up with your Family Doctor and/or Eye Doctor immediately if no improvement or any worsening of sympotms Straight to ER if swelling spreads around the eye or if redness and swelling spreads on your face Clinical Impressions Clinical Impression: Hordeolum externum (stye) Instructions Patient Instructions: MARYBETH Barajas for Hordeolum, Doxycycline Discharge ED Provider: Sheila Graf [facility] [place] General Stated complaint: possible stye in Lt eye Time Seen by Provider: 06/11/22 13:18 Description of Symptoms (Recalled from Triage Doc. by RN): PT C/O OF STYE IN LEFT EYE LOCATED IN BOTTOM LID THAT STARTED 3 DAYS AGO. STATES SHE HAS BEEN USING OTC STYE OINTMENT BUT IT HAS ONLY GOTTEN WORSE HEENT Symptoms (Recalled from RN notes): No Resp Symptoms (Recalled from RN notes): No Skin Symptoms (Recalled from RN notes): Yes MS Symptoms (Recalled from RN notes): No Functional Status (Recalled from RN notes): WNL History of Present Illness Provider Complaint: Patient states that she has been been having pain and swelling on her left lower eyelid area and has been using over the counter stye medication but hasnt helped much seems like it is getting worse today redness was moreso under her eye also so she came in to get it checked Related Data Home Medications Medication Instructions Recorded Confirmed alendronate 70 mg tablet 70 mg PO WEEKLY 01/15/21 06/03/22 methotrexate (PF) 25 mg/0.5 mL 25 mg SQ WEEKLY 01/15/21 06/03/22 subcutaneous auto-injector celecoxib 200 mg capsule 200 mg PO BID 02/25/22 06/03/22 folic acid 1 mg tablet 1 mg PO TID 02/25/22 06/03/22 duloxetine 60 mg capsule,delayed 60 mg PO DAILY 03/25/22 06/03/22 release Previous Rx's Medication Instructions Recorded rosuvastatin 20 mg tablet (Crestor) 20 mg PO DAILY #30 tab
[2022-06-11 13:31] VITALS: BP 124/79; PULSE 76; RESP 18; TEMP 36.7; O2SAT 98
== END 2022-06-11 13:37 | disposition home or self-care (01) ==
PROVIDERS: Emergency Provider Nurse Practitioner; PCP Emergency Medicine
DX: H00.015 Hordeolum externum left lower eyelid; A49.01 Methicillin susceptible Staphylococcus aureus infection, unspecified site
CPT/HCPCS: 87070; 87077; 87186; 87205; 99212; G0463

== ENCOUNTER 2022-10-24 11:44 | Emergency (ER) | payer MEDICARE, SELFPAY ==
[2022-10-24 12:00] VITALS: BP 123/64; PULSE 95; RESP 20; O2SAT 99
[2022-10-24 12:02] VITALS: BP 127/70; PULSE 84; RESP 18; TEMP 36.6; O2SAT 98; BMI 35.5
--- NOTE | 2022-10-24 12:08 | HMH.EDGENADL ---
Discharge Plan Disposition Patient Disposition: Home, Self-Care Prescriptions Prescriptions: New doxycycline hyclate 100 mg capsule 100 mg PO BID 10 Days Qty: 20 0RF albuterol sulfate 90 mcg/actuation HFA aerosol inhaler 2 inh inhalation Q4H PRN (Reason: cough ) Qty: 8.5 0RF Rx Instructions: 4 puffs every 4 hours for 48 hours then as needed for shortness of breath or wheezing following doxycycline hyclate 100 mg capsule 100 mg PO BID 10 Days Qty: 20 0RF albuterol sulfate 90 mcg/actuation HFA aerosol inhaler 2 inh inhalation Q4H PRN (Reason: cough) Qty: 6.7 0RF No Action folic acid 1 mg tablet 1 mg PO TID celecoxib 200 mg capsule 200 mg PO BID methotrexate (PF) 25 mg/0.5 mL auto-injector 25 mg SQ WEEKLY alendronate 70 mg tablet 70 mg PO WEEKLY bisoprolol fumarate 5 mg tablet 5 mg PO QDAY Qty: 90 2RF rosuvastatin [Crestor] 20 mg tablet 20 mg PO DAILY Qty: 90 2RF duloxetine 60 mg capsule,delayed release(DR/EC) 60 mg PO DAILY Qty: 90 2RF metformin 500 mg tablet 500 mg PO BID omeprazole 40 mg capsule,delayed release(DR/EC) 40 mg PO DAILY aspirin [Adult Low Dose Aspirin] 81 mg tablet,delayed release (DR/EC) 81 mg PO DAILY triamcinolone acetonide 0.1 % cream 1 applic TOPICAL BID spironolactone [Aldactone] 25 mg tablet 25 mg PO DIRECTED Rx Instructions: Take 1 tablet on Monday morning lisinopril-hydrochlorothiazide 20-25 mg tablet See Rx Instructions .ROUTE .COMPLEX Rx Instructions: TAKE 1 TABLET BY MOUTH EVERY DAY ergocalciferol (vitamin D2) 1,250 mcg (50,000 unit) capsule See Rx Instructions .ROUTE .COMPLEX Rx Instructions: TAKE 1 CAPSULE BY MOUTH WEEKLY FOR SUPPLEMENT cholecalciferol (vitamin D3) [Vitamin D3] 25 mcg (1,000 unit) capsule See Rx Instructions .ROUTE .COMPLEX Rx Instructions: Take 1 capsule DAILY for Supplement; administer with meals pregabalin [Lyrica] 75 mg capsule 75 mg PO DAILY peg 3350-electrolytes [Golytely] 236-22.74-6.74 -5.86 gram recon soln 240 ml PO Q10M Rx Instructions: until fecal effluent is clear Ozempic 0.25 mg or 0.5 mg(2 mg/1.5 mL) pen injector 0.25 mg SQ WEEKLY Rx Instructions: 0.25mg weekly for 4weeks then 0.5mg weekly Referrals Follow up/Referrals: Anoop Dalton MD [Primary Care Provider] - See instructions Activity Restrictions/Add. Instructions Additional Instructions/Restrictions: Please follow-up with primary care doctor within 1 week and return to the emergency department as needed with any worsening symptoms. Clinical Impressions Clinical Impression: Bronchitis, Wheezing, Immunocompromised Discharge ED Provider: Ashley Martin General Adult HPI General Chief complaint: Shortness of Breath/Dyspnea Stated complaint: SOA, Cough, chest congestion Time Seen by Provider: 10/24/22 12:08 History of Present Illness HPI narrative: Patient is a 72-year-old female with a history of rheumatoid arthritis on Remicade infusions presents today with 2 weeks of cough fevers chills and chest congestion and some shortness of breath. She states that she thought she was to get better at home and simply has not then she got to the point where she felt like something was wrong with her and which is what prompted her emergency department visit today. Her most recent fever objectively was 1 week ago at 101 but she has continued to feel tactile fevers and chills at home. She denies any chest pain associated with this. Has not been any respiratory distress just feels very congested. She did state that she has been wheezing and is not a wheezer and does not have a diagnosis of COPD at baseline Related Data Home Medications Medication Instructions Recorded Confirmed alendronate 70 mg tablet 70 mg PO WEEKLY bones 01/15/21 09/16/22 methotrexate (PF) 25 mg/0.5 mL 25 mg SQ WEEKLY * 01/15/21
--- NOTE | 2022-10-24 12:21 | XR_ITS ---
FINAL REPORT CLINICAL HISTORY: dyspnea, cough, fever FINDINGS: Two views of the chest were obtained. The heart size and pulmonary vascularity are within normal limits. The mediastinum is normal. There is mild right lung base atelectasis or pneumonia. There is a presumed calcified granuloma in the left lung base. There is no pneumothorax. There are moderate degenerative changes in the thoracic spine. IMPRESSION: Mild right lung base atelectasis or pneumonia. Presumed calcified granuloma the left lung base. Reviewed, Interpreted and Dictated by Cisco Stokes III, MD Transcribed by Kimberlyn Elizabeth Authenticated and . [facility]
[2022-10-24 12:30] VITALS: BP 108/55; PULSE 82; O2SAT 97
[2022-10-24 12:31] LABS: Basophils # 0.1 K/mm3 (0-0.2); Basophils % 0.7 % (0.1-2.0); Eosinophils # 0.2 K/mm3 (0.0-0.4); Eosinophils % 1.8 % (0.1-12.0); Hematocrit 35.4 % (37.0-47.0); Hemoglobin 11.7 g/dL (12.2-16.2); Lymphocytes # 3.2 K/mm3 (0.7-4.5); Lymphocytes % 35.8 % (10-50); Mean Corpuscular Hemoglobin 31.7 pg (27.0-31.2); Mean Corpuscular Volume 96.1 fl (81-99); Mean Platelet Volume 7.9 fl (7.4-10.4); Monocytes # 0.9 K/mm3 (0.1-1.0); Monocytes % 10.5 % (1.7-9.3); Neutrophils # 4.6 K/mm3 (1.8-7.8); Neutrophils % 51.3 % (37.0-80.0); Platelet Count 327 K/mm3 (142-424); Red Blood Count 3.68 M/mm3 (4.20-5.40); Red Cell Distribution Width 14.6 % (11.5-17.5); White Blood Count 8.9 K/mm3 (4.8-10.8)
[2022-10-24 12:34] LABS: Chloride 96 mmol/L (98-107); Potassium 3.4 mmoL/L (3.5-5.1); Sodium 137 mmol/L (136-145)
[2022-10-24 12:36] LABS: Blood Urea Nitrogen 31 mg/dl (7-17); Creatinine Clearance Estimated 58 mL/min (50-200); Estimated Glomerular Filt Rate 44 ml/min (>60); GFR (African American) 54 ML/MIN (>60)
[2022-10-24 12:37] LABS: Alanine Aminotransferase 34 U/L (12-78); Albumin Level 4.3 g/dl (3.5-5.0); Albumin/Globulin Ratio 1.4 (1.1-1.8); Alkaline Phosphatase 63 U/L (38-126); Anion Gap 13.4 mEq/L (5-15); Aspartate Amino Transferase 36 U/L (14-36); Bilirubin,Total 0.3 mg/dl (0.2-1.3); Calcium 8.7 mg/dl (8.4-10.2); Carbon Dioxide 31 mmol/L (22.0-30.0); Globulin 3.1 g/dL (1.3-3.2); Glucose 151 mg/dl (74-100); Total Protein,Serum 7.4 g/dl (6.3-8.2)
[2022-10-24 12:42] LABS: Coronavirus 19, PCR Not Detected (NotDetected); Influenza A, PCR Not Detected (NotDetected); Influenza B, PCR Not Detected (NotDetected)
[2022-10-24 12:51] LABS: Lactic Acid 1.5 mmol/L (0.7-2.1)
[2022-10-24 13:01] VITALS: BP 110/58; PULSE 77; O2SAT 97
[2022-10-24 13:30] VITALS: BP 116/65; PULSE 78; RESP 18; O2SAT 95
--- NOTE | 2022-10-24 13:54 | PC.NURSE ---
rounded on pt, family at bs
[2022-10-24 14:15] VITALS: BP 101/63; PULSE 75; RESP 20; TEMP 36.8; O2SAT 97
== END 2022-10-24 14:17 | disposition home or self-care (01) ==
PROVIDERS: Emergency Provider Student in an Organized Health Care Education/Training Program; PCP Emergency Medicine
DX: J20.9 Acute bronchitis, unspecified; R06.2 Wheezing; D84.89 Other immunodeficiencies; M06.9 Rheumatoid arthritis, unspecified; Z79.620 Long term (current) use of immunosuppressive biologic
CPT/HCPCS: 71046; 80053; 83605; 85025; 87040; 99284; 99285; C9803; U0003; U0005

== ENCOUNTER 2022-11-22 06:12 | Day surgery (SDC) | payer MEDICARE, SELFPAY ==
[2022-11-16 16:04] VITALS: BMI 34.7
[2022-11-22 06:32] VITALS: BP 161/92; PULSE 75; RESP 18; TEMP 36.2; O2SAT 95
[2022-11-22 07:35] LABS: POC Glucose,Bedside 117 (70-110)
[2022-11-22 07:37] VITALS: BP 161/81; PULSE 65; RESP 16; O2SAT 97
[2022-11-22 07:42] VITALS: BP 154/80; PULSE 68; RESP 16; O2SAT 94
[2022-11-22 07:47] VITALS: BP 142/77; PULSE 65; RESP 16; O2SAT 94
[2022-11-22 07:50] VITALS: BP 160/96; PULSE 77; RESP 20; TEMP 36.6; O2SAT 95
[2022-11-22 07:52] VITALS: BP 145/69; PULSE 66; RESP 16; O2SAT 98
== END 2022-11-22 08:10 | disposition home or self-care (01) ==
PROVIDERS: PCP Emergency Medicine; Visit Provider Ophthalmology
DX: E11.36 Type 2 diabetes mellitus with diabetic cataract (principal); H25.9 Unspecified age-related cataract
CPT/HCPCS: 66984; 82962; V2632

== ENCOUNTER 2022-12-27 06:54 | Day surgery (SDC) | payer MEDICARE, SELFPAY ==
[2022-12-26 11:40] VITALS: BMI 34.4
[2022-12-27 07:18] VITALS: BP 127/73; PULSE 82; RESP 16; TEMP 36.4; O2SAT 98
[2022-12-27 07:28] LABS: POC Glucose,Bedside 155 (70-110)
[2022-12-27 08:41] VITALS: BP 122/64; PULSE 67; RESP 17; O2SAT 97
[2022-12-27 08:46] VITALS: BP 116/64; PULSE 69; RESP 16; O2SAT 98
[2022-12-27 08:51] VITALS: BP 111/61; PULSE 64; RESP 17; O2SAT 100
[2022-12-27 08:57] VITALS: BP 126/83; PULSE 81; RESP 18; TEMP 36.7; O2SAT 98
== END 2022-12-27 09:05 | disposition home or self-care (01) ==
PROVIDERS: PCP Emergency Medicine; Visit Provider Ophthalmology
DX: E11.36 Type 2 diabetes mellitus with diabetic cataract (principal); H25.9 Unspecified age-related cataract; H53.149 Visual discomfort, unspecified; H02.834 Dermatochalasis of left upper eyelid; H02.831 Dermatochalasis of right upper eyelid
CPT/HCPCS: 66984; 82962; V2632

== ENCOUNTER 2023-04-04 14:03 | Emergency (ER) | payer MEDICARE, SELFPAY ==
[2023-04-04 14:20] VITALS: BP 123/85; PULSE 72; RESP 18; TEMP 36.8; O2SAT 99; BMI 34.4
[2023-04-04 14:26] LABS: UTC Strep Screen (Rapid) Positive (Negative)
--- NOTE | 2023-04-04 14:31 | EXP.UTC ---
Discharge Plan Disposition Patient Disposition: Home, Self-Care Condition: Good Prescriptions Prescriptions: New amoxicillin [amoxicillin] 875 mg tablet 875 mg PO Q12H Qty: 20 0RF benzonatate [benzonatate] 100 mg capsule 100 mg PO TIDP PRN (Reason: Cough) Qty: 30 0RF prednisone 10 mg tablet 10 mg PO BID 5 Days Qty: 10 0RF nystatin 100,000 unit/gram cream 1 applic topical BID Qty: 15 0RF No Action folic acid 1 mg tablet 1 mg PO TID pregabalin [Lyrica] 75 mg capsule 75 mg PO DAILY Qty: 30 2RF methotrexate (PF) 25 mg/0.5 mL auto-injector 25 mg SQ WEEKLY alendronate 70 mg tablet 70 mg PO WEEKLY prednisone 5 mg tablet 5 mg PO diclofenac sodium 1 % gel 2 g topical ergocalciferol (vitamin D2) 1,250 mcg (50,000 unit) capsule See Rx Instructions .ROUTE .COMPLEX Qty: 14 0RF Rx Instructions: TAKE 1 CAPSULE BY MOUTH WEEKLY FOR SUPPLEMENT cholecalciferol (vitamin D3) 25 mcg (1,000 unit) tablet See Rx Instructions .ROUTE .COMPLEX Qty: 90 0RF Rx Instructions: TAKE 1 TABLET BY MOUTH EVERY DAY FOR SUPPLEMENT ADMINISTER WITH MEAL bisoprolol fumarate 5 mg tablet 5 mg PO QDAY Qty: 90 2RF rosuvastatin [Crestor] 20 mg tablet 20 mg PO DAILY Qty: 90 2RF duloxetine 60 mg capsule,delayed release(DR/EC) 60 mg PO DAILY Qty: 90 2RF Ozempic 0.25 mg or 0.5 mg (2 mg/3 mL) pen injector See Rx Instructions .ROUTE .COMPLEX Qty: 3 0RF Rx Instructions: inject 0.25 mg (0.2 mL) subcutaneously weekly for 4 weeks then increase to 0.5 mg weekly lisinopril-hydrochlorothiazide 20-25 mg tablet 1 tab PO DAILY Rx Instructions: TAKE 1 TABLET BY MOUTH EVERY DAY infliximab [Remicade] 100 mg recon soln 443 mg IV MONTHLY Patient Comments: INFUSE 5MG/KG (443 MG) IV AT WEEK 0, WEEK 2, WEEK 6 THEN EVERY 8 WEEKS Rx Instructions: every 8 weeks omeprazole 40 mg capsule,delayed release(DR/EC) 40 mg PO DAILY aspirin [Adult Low Dose Aspirin] 81 mg tablet,delayed release (DR/EC) 81 mg PO DAILY triamcinolone acetonide 0.1 % cream 1 applic TOPICAL BID Referrals Follow up/Referrals: Anoop Dalton MD [Primary Care Provider] - See instructions Activity Restrictions/Add. Instructions Additional Instructions/Restrictions: Drink plenty of fluids. Take tylenol or ibuprofen for pain or fever. Take the medications as directed. Follow up with your regular doctor. GO TO THE ER FOR ANY WORSENING SYMPTOMS Throw your tooth brush away and get a new one. Clinical Impressions Clinical Impression: Strep pharyngitis Instructions Patient Instructions: Strep Throat, DI for Strep Throat Discharge ED Provider: Cas Macias [facility] [place] General Stated complaint: blisters on tongue, cold Mode of Arrival: Ambulatory Source of Information: Patient Limitations: No Limitations Time Seen by Provider: 04/04/23 14:30 Description of Symptoms (Recalled from Triage Doc. by RN): Patient c/o sore throat for prior two days. Sinus drainage and a sore tonuge. Says she noticed blisters last week. Also complains of blisters on her rectum. HEENT Symptoms (Recalled from RN notes): Yes Resp Symptoms (Recalled from RN notes): Yes Skin Symptoms (Recalled from RN notes): Yes MS Symptoms (Recalled from RN notes): No Functional Status (Recalled from RN notes): na History of Present Illness Provider Complaint: She states that for the past 3 days she has had sore throat, chills and malaise. She has had a blister on her tongue also. Related Data Home Medications Medication Instructions Recorded Confirmed alendronate 70 mg tablet 70 mg PO WEEKLY bones 01/15/21 03/31/23 methotrexate (PF) 25 mg/0.5 mL 25 mg SQ WEEKLY * 01/15/21 03/31/23 subcutaneous auto-injector folic acid 1 mg tablet 1 mg PO TID Supplement 02/25/22 03/31/23 aspirin 81 mg tablet,delayed 81 mg PO DAILY heart health 10/19/22 03/31/23 release (Adult Lo
[2023-04-04 14:38] VITALS: BP 123/85; PULSE 72; RESP 18; TEMP 36.8; O2SAT 99
== END 2023-04-04 14:39 | disposition home or self-care (01) ==
PROVIDERS: Emergency Provider Nurse Practitioner Family; PCP Emergency Medicine
DX: J02.0 Streptococcal pharyngitis (principal); R53.81 Other malaise; E11.9 Type 2 diabetes mellitus without complications; K21.9 Gastro-esophageal reflux disease without esophagitis; I10 Essential (primary) hypertension; E78.5 Hyperlipidemia, unspecified; E55.9 Vitamin D deficiency, unspecified; M06.9 Rheumatoid arthritis, unspecified
CPT/HCPCS: 87880; 99212; 99214; G0463

== ENCOUNTER 2023-04-12 18:14 | Emergency (ER) | payer MEDICARE, SELFPAY ==
[2023-04-12 18:45] VITALS: BP 114/70; PULSE 75; RESP 18; TEMP 37.7; O2SAT 97; BMI 34.4
--- NOTE | 2023-04-12 19:02 | EXP.UTC ---
Discharge Plan Disposition Patient Disposition: Home, Self-Care Condition: Good Prescriptions Prescriptions: New minocycline 100 mg tablet 100 mg PO BID 10 Days Qty: 20 0RF mupirocin 2 % ointment 1 applic topical BID Qty: 15 0RF No Action folic acid 1 mg tablet 1 mg PO TID pregabalin [Lyrica] 75 mg capsule 75 mg PO DAILY Qty: 30 2RF methotrexate (PF) 25 mg/0.5 mL auto-injector 25 mg SQ WEEKLY alendronate 70 mg tablet 70 mg PO WEEKLY prednisone 5 mg tablet 5 mg PO diclofenac sodium 1 % gel 2 g topical ergocalciferol (vitamin D2) 1,250 mcg (50,000 unit) capsule See Rx Instructions .ROUTE .COMPLEX Qty: 14 0RF Rx Instructions: TAKE 1 CAPSULE BY MOUTH WEEKLY FOR SUPPLEMENT cholecalciferol (vitamin D3) 25 mcg (1,000 unit) tablet See Rx Instructions .ROUTE .COMPLEX Qty: 90 0RF Rx Instructions: TAKE 1 TABLET BY MOUTH EVERY DAY FOR SUPPLEMENT ADMINISTER WITH MEAL bisoprolol fumarate 5 mg tablet 5 mg PO QDAY Qty: 90 2RF rosuvastatin [Crestor] 20 mg tablet 20 mg PO DAILY Qty: 90 2RF duloxetine 60 mg capsule,delayed release(DR/EC) 60 mg PO DAILY Qty: 90 2RF Ozempic 0.25 mg or 0.5 mg (2 mg/3 mL) pen injector See Rx Instructions .ROUTE .COMPLEX Qty: 3 0RF Rx Instructions: inject 0.25 mg (0.2 mL) subcutaneously weekly for 4 weeks then increase to 0.5 mg weekly lisinopril-hydrochlorothiazide 20-25 mg tablet 1 tab PO DAILY Rx Instructions: TAKE 1 TABLET BY MOUTH EVERY DAY infliximab [Remicade] 100 mg recon soln 443 mg IV MONTHLY Patient Comments: INFUSE 5MG/KG (443 MG) IV AT WEEK 0, WEEK 2, WEEK 6 THEN EVERY 8 WEEKS Rx Instructions: every 8 weeks prednisone 10 mg tablet 10 mg PO BID 5 Days Qty: 10 0RF nystatin 100,000 unit/gram cream 1 applic topical BID Qty: 15 0RF omeprazole 40 mg capsule,delayed release(DR/EC) 40 mg PO DAILY aspirin [Adult Low Dose Aspirin] 81 mg tablet,delayed release (DR/EC) 81 mg PO DAILY triamcinolone acetonide 0.1 % cream 1 applic TOPICAL BID Referrals Follow up/Referrals: Anoop Dalton MD [Primary Care Provider] - See instructions Activity Restrictions/Add. Instructions Additional Instructions/Restrictions: follow up with pcp tomorrow return if symptoms worsen or no improvement Clinical Impressions Clinical Impression: Facial cellulitis Instructions Patient Instructions: Cellulitis Discharge ED Provider: Steve ([facility])[place]rie [facility] [place] General Stated complaint: knot on left side of face red/swelling/hot/sore Mode of Arrival: Ambulatory Source of Information: Patient Limitations: No Limitations Time Seen by Provider: 04/12/23 19:02 Description of Symptoms (Recalled from Triage Doc. by RN): left side of face swollen, sore, and hot. She states that the spot is draining pus, and blood. HEENT Symptoms (Recalled from RN notes): Yes Resp Symptoms (Recalled from RN notes): No Skin Symptoms (Recalled from RN notes): Yes MS Symptoms (Recalled from RN notes): No Functional Status (Recalled from RN notes): n/a History of Present Illness Provider Complaint: 73 yr old female presents for left side of face swollen, sore, and redness. She states that the spot is draining pus, and blood. for 2 days Related Data Home Medications Medication Instructions Recorded Confirmed alendronate 70 mg tablet 70 mg PO WEEKLY bones 01/15/21 03/31/23 methotrexate (PF) 25 mg/0.5 mL 25 mg SQ WEEKLY * 01/15/21 03/31/23 subcutaneous auto-injector folic acid 1 mg tablet 1 mg PO TID Supplement 02/25/22 03/31/23 aspirin 81 mg tablet,delayed 81 mg PO DAILY heart health 10/19/22 03/31/23 release (Adult Low Dose Aspirin) omeprazole 40 mg capsule,delayed 40 mg PO DAILY Acid reflux 10/19/22 03/31/23 release triamcinolone acetonide 0.1 % 1 applic topical BID * 10/19/22 03/31/23 topical cream lisinopril 20 1 tab PO DAILY bp 11/22/22
[2023-04-12 19:17] VITALS: BP 114/70; PULSE 75; RESP 18; TEMP 37.7; O2SAT 97
== END 2023-04-12 19:17 | disposition home or self-care (01) ==
PROVIDERS: Emergency Provider Nurse Practitioner Family; PCP Emergency Medicine
DX: L03.211 Cellulitis of face (principal); E78.5 Hyperlipidemia, unspecified; I10 Essential (primary) hypertension; K21.9 Gastro-esophageal reflux disease without esophagitis; E55.9 Vitamin D deficiency, unspecified; M06.9 Rheumatoid arthritis, unspecified; E11.9 Type 2 diabetes mellitus without complications
CPT/HCPCS: 99212; 99214; G0463

== ENCOUNTER 2023-06-13 12:14 | Emergency (ER) | payer MEDICARE, SELFPAY ==
[2023-06-13] VITALS (11 sets, daily range): BP systolic 76–133; BP diastolic 50–91; PULSE 78–96; RESP 17–20; TEMP 36.6; O2SAT 18–98; BMI 35.1
--- NOTE | 2023-06-13 12:18 | HMH.EDGENADL ---
Discharge Plan Disposition Chief Complaint: Back Pain/Injury Prescriptions Prescriptions: No Action pregabalin [Lyrica] 75 mg capsule 75 mg PO DAILY Qty: 30 2RF methotrexate (PF) 25 mg/0.5 mL auto-injector 25 mg SQ WEEKLY alendronate 70 mg tablet 70 mg PO WEEKLY prednisone 5 mg tablet 5 mg PO diclofenac sodium 1 % gel 2 g topical ergocalciferol (vitamin D2) 1,250 mcg (50,000 unit) capsule See Rx Instructions .ROUTE .COMPLEX Qty: 14 0RF Rx Instructions: TAKE 1 CAPSULE BY MOUTH WEEKLY FOR SUPPLEMENT cholecalciferol (vitamin D3) 25 mcg (1,000 unit) tablet See Rx Instructions .ROUTE .COMPLEX Qty: 90 0RF Rx Instructions: TAKE 1 TABLET BY MOUTH EVERY DAY FOR SUPPLEMENT ADMINISTER WITH MEAL duloxetine 60 mg capsule,delayed release(DR/EC) 60 mg PO DAILY Qty: 90 2RF Ozempic 0.25 mg or 0.5 mg (2 mg/3 mL) pen injector See Rx Instructions .ROUTE .COMPLEX Qty: 3 0RF Rx Instructions: inject 0.25 mg (0.2 mL) subcutaneously weekly for 4 weeks then increase to 0.5 mg weekly rosuvastatin [Crestor] 20 mg tablet 20 mg PO DAILY Qty: 90 2RF bisoprolol fumarate 5 mg tablet 5 mg PO QDAY Qty: 90 2RF folic acid 1 mg tablet 1 mg PO TID Qty: 90 1RF lisinopril-hydrochlorothiazide 20-25 mg tablet 1 tab PO DAILY Qty: 90 1RF Rx Instructions: TAKE 1 TABLET BY MOUTH EVERY DAY infliximab [Remicade] 100 mg recon soln 443 mg IV MONTHLY Patient Comments: INFUSE 5MG/KG (443 MG) IV AT WEEK 0, WEEK 2, WEEK 6 THEN EVERY 8 WEEKS Rx Instructions: every 8 weeks prednisone 10 mg tablet 10 mg PO BID 5 Days Qty: 10 0RF nystatin 100,000 unit/gram cream 1 applic topical BID Qty: 15 0RF minocycline 100 mg tablet 100 mg PO BID 10 Days Qty: 20 0RF mupirocin 2 % ointment 1 applic topical BID Qty: 15 0RF omeprazole 40 mg capsule,delayed release(DR/EC) 40 mg PO DAILY aspirin [Adult Low Dose Aspirin] 81 mg tablet,delayed release (DR/EC) 81 mg PO DAILY triamcinolone acetonide 0.1 % cream 1 applic TOPICAL BID Referrals Follow up/Referrals: Makeda Murry PA [Primary Care Provider] - See instructions Instructions Patient Instructions: DI for Low Back Pain Discharge ED Provider: Teodoro Sharp General Adult HPI General Chief complaint: Back Pain/Injury Stated complaint: [id number] right hip and side pain, home fall Time Seen by Provider: 06/13/23 12:18 History of Present Illness HPI narrative: The patient presents with a chief complaint of side pain and difficulty getting in and out of bed following a fall on ceramic tile in their bathroom on Monday. They report passing out before the fall, with no known cause, but suspect it may be related to high sugar levels. The pain has worsened since the incident, and the patient expresses concern about potential kidney involvement. No pain during urination is reported. The patient has a past medical history of neuropathy and rheumatoid arthritis, for which they receive infusions and a weekly shot. They are unsure about having osteoporosis but mention having had a bone density scan. The patient is currently taking Lyrica for arthritis and denies any previous back surgeries. The patient experiences discomfort while in bed and has difficulty sleeping due to the pain. They report pain when sitting on the commode but have not noticed any numbness in the groin area or different sensations when wiping. The patient has a history of kidney diverticulitis and has been hospitalized for it in the past. They report having had an allergic reaction to morphine during a previous hospitalization. The patient's current medications include Celebrex, Lyrica, and Methotrexate for arthritis, as well as a two-month medication for an unspecified condition. The patient also mentions receiving prednisone frequently for inflammation and experiencing swollen legs. Related Data Home Medicatio
--- NOTE | 2023-06-13 13:58 | CT_ITS ---
FINAL REPORT TECHNIQUE: Axial imaging of the lumbar spine was obtained without contrast. Reformatted images were also obtained and reviewed.This study was performed with techniques to keep radiation doses as low as reasonably achievable, (ALARA). Individualized dose reduction techniques using automated exposure control or adjustment of mA and/or kV according to the patient's size were employed. CLINICAL HISTORY: .fall FINDINGS: There is no acute fracture or subluxation. The vertebra are normal height. There is mild diffuse degenerative disc disease and advanced facet arthropathy of the lower lumbar spine. There is multilevel neuroforaminal narrowing. There is no malalignment. Facets are properly aligned. Prevertebral soft tissues unremarkable. IMPRESSION: Diffuse degenerative disc disease with multilevel neuroforaminal narrowing. No acute bony abnormality. Reviewed, Interpreted and Dictated by Gelacio Ivory MD Transcribed by Zaida King Authenticated and [facility]
--- NOTE | 2023-06-13 13:58 | CT_ITS ---
FINAL REPORT CLINICAL HISTORY: .fall FINDINGS: Axial images through the pelvis were performed by computed tomography. Sagittal and coronal reconstruction images were performed. This study was performed with techniques to keep radiation doses as low as reasonably achievable (ALARA). Individualized dose reduction techniques using automated exposure control or adjustment of mA and/or kV according to the patient's size were employed. No fracture is identified. No dislocation identified. Mild degenerative changes. No acute soft tissue abnormality. IMPRESSION: No acute bony abnormality. Reviewed, Interpreted and Dictated by Gelacio Ivory MD Transcribed by Leonidas Alfaro Authenticated and [facility]
--- NOTE | 2023-06-13 14:06 | PC.NURSE ---
PT TO CT
[2023-06-13 14:57] LABS: Chloride 97 mmol/L (98-107); Potassium 4.4 mmoL/L (3.5-5.1); Sodium 134 mmol/L (136-145)
[2023-06-13 15:00] LABS: Alanine Aminotransferase 45 U/L (12-78); Albumin Level 4.8 g/dl (3.5-5.0); Albumin/Globulin Ratio 1.3 (1.1-1.8); Alkaline Phosphatase 63 U/L (38-126); Anion Gap 10.4 mEq/L (5-15); Aspartate Amino Transferase 58 U/L (14-36); Bilirubin,Total 0.6 mg/dl (0.2-1.3); Blood Urea Nitrogen 19 mg/dl (7-17); Calcium 9.6 mg/dl (8.4-10.2); Carbon Dioxide 31 mmol/L (22.0-30.0); Creatinine Clearance Estimated 68 mL/min (50-200); Estimated Glomerular Filt Rate 55 ml/min (>60); GFR (African American) 66 ML/MIN (>60); Globulin 3.8 g/dL (1.3-3.2); Glucose 132 mg/dl (74-100); Total Protein,Serum 8.6 g/dl (6.3-8.2)
[2023-06-13 15:04] LABS: Basophils # 0.1 K/mm3 (0-0.2); Basophils % 0.6 % (0.1-2.0); Eosinophils # 0.2 K/mm3 (0.0-0.4); Hematocrit 35.2 % (37.0-47.0); Hemoglobin 12.2 g/dL (12.2-16.2); Lymphocytes # 2.4 K/mm3 (0.7-4.5); Lymphocytes % 31.3 % (10-50); Mean Corpuscular HGB Conc 34.7 g/dL (31.8-35.4); Mean Corpuscular Hemoglobin 33.4 pg (27.0-31.2); Mean Corpuscular Volume 96.2 fl (81-99); Mean Platelet Volume 8.5 fl (7.4-10.4); Monocytes # 0.6 K/mm3 (0.1-1.0); Monocytes % 7.4 % (1.7-9.3); Neutrophils # 4.5 K/mm3 (1.8-7.8); Neutrophils % 57.7 % (37.0-80.0); Platelet Count 282 K/mm3 (142-424); Red Blood Count 3.66 M/mm3 (4.20-5.40); Red Cell Distribution Width 15.5 % (11.5-17.5); White Blood Count 7.8 K/mm3 (4.8-10.8)
--- NOTE | 2023-06-13 17:10 | PC.NURSE ---
DR RICHARD AT BEDSIDE
--- NOTE | 2023-06-13 17:45 | HMH.EDGENADL ---
Discharge Plan Disposition Patient Disposition: Home, Self-Care Prescriptions Prescriptions: No Action pregabalin [Lyrica] 75 mg capsule 75 mg PO DAILY Qty: 30 2RF methotrexate (PF) 25 mg/0.5 mL auto-injector 25 mg SQ WEEKLY alendronate 70 mg tablet 70 mg PO WEEKLY prednisone 5 mg tablet 5 mg PO diclofenac sodium 1 % gel 2 g topical ergocalciferol (vitamin D2) 1,250 mcg (50,000 unit) capsule See Rx Instructions .ROUTE .COMPLEX Qty: 14 0RF Rx Instructions: TAKE 1 CAPSULE BY MOUTH WEEKLY FOR SUPPLEMENT cholecalciferol (vitamin D3) 25 mcg (1,000 unit) tablet See Rx Instructions .ROUTE .COMPLEX Qty: 90 0RF Rx Instructions: TAKE 1 TABLET BY MOUTH EVERY DAY FOR SUPPLEMENT ADMINISTER WITH MEAL duloxetine 60 mg capsule,delayed release(DR/EC) 60 mg PO DAILY Qty: 90 2RF Ozempic 0.25 mg or 0.5 mg (2 mg/3 mL) pen injector See Rx Instructions .ROUTE .COMPLEX Qty: 3 0RF Rx Instructions: inject 0.25 mg (0.2 mL) subcutaneously weekly for 4 weeks then increase to 0.5 mg weekly rosuvastatin [Crestor] 20 mg tablet 20 mg PO DAILY Qty: 90 2RF bisoprolol fumarate 5 mg tablet 5 mg PO QDAY Qty: 90 2RF folic acid 1 mg tablet 1 mg PO TID Qty: 90 1RF lisinopril-hydrochlorothiazide 20-25 mg tablet 1 tab PO DAILY Qty: 90 1RF Rx Instructions: TAKE 1 TABLET BY MOUTH EVERY DAY infliximab [Remicade] 100 mg recon soln 443 mg IV MONTHLY Patient Comments: INFUSE 5MG/KG (443 MG) IV AT WEEK 0, WEEK 2, WEEK 6 THEN EVERY 8 WEEKS Rx Instructions: every 8 weeks prednisone 10 mg tablet 10 mg PO BID 5 Days Qty: 10 0RF nystatin 100,000 unit/gram cream 1 applic topical BID Qty: 15 0RF minocycline 100 mg tablet 100 mg PO BID 10 Days Qty: 20 0RF mupirocin 2 % ointment 1 applic topical BID Qty: 15 0RF omeprazole 40 mg capsule,delayed release(DR/EC) 40 mg PO DAILY aspirin [Adult Low Dose Aspirin] 81 mg tablet,delayed release (DR/EC) 81 mg PO DAILY triamcinolone acetonide 0.1 % cream 1 applic TOPICAL BID Referrals Follow up/Referrals: Makeda Murry PA [Primary Care Provider] - See instructions Activity Restrictions/Add. Instructions Additional Instructions/Restrictions: Please follow up with PCP, please return to ED with any new or worsening symptoms. Clinical Impressions Clinical Impression: Sacral back pain Instructions Patient Instructions: DI for Low Back Pain Discharge ED Provider: Teodoro Sharp Adult HPI General Chief complaint: Back Pain/Injury Stated complaint: AO [id number] right hip and side pain, home fall Time Seen by Provider: 06/13/23 12:18 Mode of Arrival: Ambulatory Source of Information: Patient Limitations: No Limitations Description of Symptoms (Recalled from ER Triage Doc. by RN): PT C/O RIGHT SIDE BACK AND HIP PAIN AFTER A FALL ON MONDAY Related Data Home Medications Medication Instructions Recorded Confirmed alendronate 70 mg tablet 70 mg PO WEEKLY bones 01/15/21 03/31/23 methotrexate (PF) 25 mg/0.5 mL 25 mg SQ WEEKLY * 01/15/21 03/31/23 subcutaneous auto-injector aspirin 81 mg tablet,delayed 81 mg PO DAILY heart health 10/19/22 03/31/23 release (Adult Low Dose Aspirin) omeprazole 40 mg capsule,delayed 40 mg PO DAILY Acid reflux 10/19/22 03/31/23 release triamcinolone acetonide 0.1 % 1 applic topical BID * 10/19/22 03/31/23 topical cream infliximab 100 mg intravenous 443 mg IV MONTHLY Rapid heart rate 12/05/22 03/31/23 solution (Remicade) diclofenac sodium 1 % topical gel 2 g topical 02/01/23 03/31/23 prednisone 5 mg tablet 5 mg PO 02/01/23 03/31/23 Previous Rx's Medication Instructions Recorded duloxetine 60 mg capsule,delayed 60 mg PO DAILY depression #90 caps 08/04/22 release cholecalciferol (vitamin D3) 25 See Rx Instructions .Route 02/01/23 mcg (1,000 unit) tablet .COMPLEX Supplement #90 tabs ergocalciferol (vit
== END 2023-06-13 17:58 | disposition home or self-care (01) ==
PROVIDERS: Emergency Provider Emergency Medicine; PCP Physician Assistant
DX: M25.551 Pain in right hip (principal); M54.59 Other low back pain; E11.9 Type 2 diabetes mellitus without complications; K21.9 Gastro-esophageal reflux disease without esophagitis; I10 Essential (primary) hypertension; E78.5 Hyperlipidemia, unspecified; M06.9 Rheumatoid arthritis, unspecified; Z79.85 Long-term (current) use of injectable non-insulin antidiabetic drugs; W19.XXXA Unspecified fall, initial encounter
CPT/HCPCS: 72131; 72192; 80053; 85025; 96374; 96375; 99285; J2405

== ENCOUNTER 2023-07-04 15:48 | Emergency (ER) | payer MEDICARE, SELFPAY ==
[2023-07-04 16:47] VITALS: BP 140/72; PULSE 74; RESP 18; TEMP 36.9; O2SAT 96; BMI 35.9
[2023-07-04 17:03] LABS: UTC Influenza A Antigen Negative (Negative); UTC Influenza B Antigen Negative (Negative)
--- NOTE | 2023-07-04 17:09 | EXP.UTC ---
Discharge Plan Disposition Patient Disposition: Home, Self-Care Condition: Good Prescriptions Prescriptions: New methylprednisolone [Medrol (Niels)] 4 mg tablets,dose pack See Rx Instructions .ROUTE .COMPLEX 6 Days Qty: 21 0RF Rx Instructions: 4 mg orally ;Medrol dose taper niels loratadine 10 mg tablet 10 mg PO DAILY Qty: 30 0RF No Action pregabalin [Lyrica] 75 mg capsule 75 mg PO DAILY Qty: 30 2RF methotrexate (PF) 25 mg/0.5 mL auto-injector 25 mg SQ WEEKLY alendronate 70 mg tablet 70 mg PO WEEKLY diclofenac sodium 1 % gel 2 g topical ergocalciferol (vitamin D2) 1,250 mcg (50,000 unit) capsule See Rx Instructions .ROUTE .COMPLEX Qty: 14 0RF Rx Instructions: TAKE 1 CAPSULE BY MOUTH WEEKLY FOR SUPPLEMENT cholecalciferol (vitamin D3) 25 mcg (1,000 unit) tablet See Rx Instructions .ROUTE .COMPLEX Qty: 90 0RF Rx Instructions: TAKE 1 TABLET BY MOUTH EVERY DAY FOR SUPPLEMENT ADMINISTER WITH MEAL duloxetine 60 mg capsule,delayed release(DR/EC) 60 mg PO DAILY Qty: 90 2RF Ozempic 0.25 mg or 0.5 mg (2 mg/3 mL) pen injector See Rx Instructions .ROUTE .COMPLEX Qty: 3 0RF Rx Instructions: inject 0.25 mg (0.2 mL) subcutaneously weekly for 4 weeks then increase to 0.5 mg weekly rosuvastatin [Crestor] 20 mg tablet 20 mg PO DAILY Qty: 90 2RF bisoprolol fumarate 5 mg tablet 5 mg PO QDAY Qty: 90 2RF folic acid 1 mg tablet 1 mg PO TID Qty: 90 1RF lisinopril-hydrochlorothiazide 20-25 mg tablet 1 tab PO DAILY Qty: 90 1RF Rx Instructions: TAKE 1 TABLET BY MOUTH EVERY DAY infliximab [Remicade] 100 mg recon soln 443 mg IV MONTHLY Patient Comments: INFUSE 5MG/KG (443 MG) IV AT WEEK 0, WEEK 2, WEEK 6 THEN EVERY 8 WEEKS Rx Instructions: every 8 weeks nystatin 100,000 unit/gram cream 1 applic topical BID Qty: 15 0RF minocycline 100 mg tablet 100 mg PO BID 10 Days Qty: 20 0RF mupirocin 2 % ointment 1 applic topical BID Qty: 15 0RF omeprazole 40 mg capsule,delayed release(DR/EC) 40 mg PO DAILY aspirin [Adult Low Dose Aspirin] 81 mg tablet,delayed release (DR/EC) 81 mg PO DAILY triamcinolone acetonide 0.1 % cream 1 applic TOPICAL BID Referrals Follow up/Referrals: Makeda Murry PA [Primary Care Provider] - See instructions Clinical Impressions Clinical Impression: Drug side effects Instructions Patient Instructions: Infliximab Injection Discharge ED Provider: Justa Rubio [facility] [place] HPI General Stated complaint: nikolai, body aches, Mode of Arrival: Ambulatory Source of Information: Patient Limitations: No Limitations Time Seen by Provider: 07/04/23 17:08 Description of Symptoms (Recalled from Triage Doc. by RN): congestion, and body aches HEENT Symptoms (Recalled from RN notes): Yes Resp Symptoms (Recalled from RN notes): No Skin Symptoms (Recalled from RN notes): No MS Symptoms (Recalled from RN notes): No Functional Status (Recalled from RN notes): n/a History of Present Illness Provider Complaint: Pt relates that she had a Rimicade shot on Monday and today has body aches and a runny nose. She is worried that this will lead to an infection. Related Data Home Medications Medication Instructions Recorded Confirmed alendronate 70 mg tablet 70 mg PO WEEKLY bones 01/15/21 07/04/23 methotrexate (PF) 25 mg/0.5 mL 25 mg SQ WEEKLY * 01/15/21 07/04/23 subcutaneous auto-injector aspirin 81 mg tablet,delayed 81 mg PO DAILY heart health 10/19/22 03/31/23 release (Adult Low Dose Aspirin) omeprazole 40 mg capsule,delayed 40 mg PO DAILY Acid reflux 10/19/22 07/04/23 release triamcinolone acetonide 0.1 % 1 applic topical BID * 10/19/22 03/31/23 topical cream infliximab 100 mg intravenous 443 mg IV MONTHLY Rapid heart rate 12/05/22 07/04/23 solution (Remicade) diclofenac sodium 1 % topical gel 2 g topical 02/01/23 03/31/23 Previous Rx's [facility]
[2023-07-04 17:41] VITALS: BP 140/72; PULSE 74; RESP 18; TEMP 36.9; O2SAT 96
== END 2023-07-04 17:41 | disposition home or self-care (01) ==
PROVIDERS: Emergency Provider Nurse Practitioner Family; PCP Physician Assistant
DX: T45.1X5A Adverse effect of antineoplastic and immunosuppressive drugs, initial encounter (principal); R09.81 Nasal congestion; M79.18 Myalgia, other site; M06.9 Rheumatoid arthritis, unspecified; I10 Essential (primary) hypertension; E78.5 Hyperlipidemia, unspecified; K21.9 Gastro-esophageal reflux disease without esophagitis; E11.9 Type 2 diabetes mellitus without complications; Z79.85 Long-term (current) use of injectable non-insulin antidiabetic drugs
CPT/HCPCS: 87804; 99212; 99214; G0463

== ENCOUNTER 2023-07-15 10:42 | Emergency (ER) | payer MEDICARE, SELFPAY ==
[2023-07-15 10:45] VITALS: BP 101/43; PULSE 83; RESP 18; TEMP 36.9; O2SAT 93; BMI 35.3
--- NOTE | 2023-07-15 10:52 | PC.NURSE ---
DR OSBORNE AT BEDSIDE
--- NOTE | 2023-07-15 10:57 | ED_ITS ---
Discharge Plan Disposition Patient Disposition: Home, Self-Care Prescriptions Prescriptions: New [id number]-[id number]-WP [Bromfed DM] 2-30-10 mg/5 mL syrup 5 ml PO Q6H PRN (Reason: cold symptoms) Qty: 118 0RF No Action pregabalin [Lyrica] 75 mg capsule 75 mg PO DAILY Qty: 30 2RF methotrexate (PF) 25 mg/0.5 mL auto-injector 25 mg SQ WEEKLY alendronate 70 mg tablet 70 mg PO WEEKLY diclofenac sodium 1 % gel 2 g topical ergocalciferol (vitamin D2) 1,250 mcg (50,000 unit) capsule See Rx Instructions .ROUTE .COMPLEX Qty: 14 0RF Rx Instructions: TAKE 1 CAPSULE BY MOUTH WEEKLY FOR SUPPLEMENT cholecalciferol (vitamin D3) 25 mcg (1,000 unit) tablet See Rx Instructions .ROUTE .COMPLEX Qty: 90 0RF Rx Instructions: TAKE 1 TABLET BY MOUTH EVERY DAY FOR SUPPLEMENT ADMINISTER WITH MEAL duloxetine 60 mg capsule,delayed release(DR/EC) 60 mg PO DAILY Qty: 90 2RF Ozempic 0.25 mg or 0.5 mg (2 mg/3 mL) pen injector See Rx Instructions .ROUTE .COMPLEX Qty: 3 0RF Rx Instructions: inject 0.25 mg (0.2 mL) subcutaneously weekly for 4 weeks then increase to 0.5 mg weekly rosuvastatin [Crestor] 20 mg tablet 20 mg PO DAILY Qty: 90 2RF bisoprolol fumarate 5 mg tablet 5 mg PO QDAY Qty: 90 2RF folic acid 1 mg tablet 1 mg PO TID Qty: 90 1RF lisinopril-hydrochlorothiazide 20-25 mg tablet 1 tab PO DAILY Qty: 90 1RF Rx Instructions: TAKE 1 TABLET BY MOUTH EVERY DAY infliximab [Remicade] 100 mg recon soln 443 mg IV MONTHLY Patient Comments: INFUSE 5MG/KG (443 MG) IV AT WEEK 0, WEEK 2, WEEK 6 THEN EVERY 8 WEEKS Rx Instructions: every 8 weeks nystatin 100,000 unit/gram cream 1 applic topical BID Qty: 15 0RF minocycline 100 mg tablet 100 mg PO BID 10 Days Qty: 20 0RF mupirocin 2 % ointment 1 applic topical BID Qty: 15 0RF omeprazole 40 mg capsule,delayed release(DR/EC) 40 mg PO DAILY aspirin [Adult Low Dose Aspirin] 81 mg tablet,delayed release (DR/EC) 81 mg PO DAILY triamcinolone acetonide 0.1 % cream 1 applic TOPICAL BID methylprednisolone [Medrol (Niels)] 4 mg tablets,dose pack See Rx Instructions .ROUTE .COMPLEX 6 Days Qty: 21 0RF Rx Instructions: 4 mg orally ;Medrol dose taper niels loratadine 10 mg tablet 10 mg PO DAILY Qty: 30 0RF Referrals Follow up/Referrals: Makeda Murry PA [Primary Care Provider] - See instructions Activity Restrictions/Add. Instructions Additional Instructions/Restrictions: At this time it was felt you are safe to be discharged home. If new or worsening symptoms please do not hesitate to return the emergency department. If symptoms persist please follow-up with your family doctor as you are able. Please take your medication as prescribed. Clinical Impressions Clinical Impression: Acute viral syndrome, Upper respiratory infection Discharge ED Provider: David Freire General Adult HPI General Chief complaint: Upper Respiratory Infection Stated complaint: nikolai, sore throat,SOA, cough Time Seen by Provider: 07/15/23 10:50 Mode of Arrival: Ambulatory Source of Information: Patient Limitations: No Limitations Description of Symptoms (Recalled from ER Triage Doc. by RN): pt presents to ED c/o cough and congestion x 3 weeks. pt reports being seen in [facility] approx a month ago for similar symptoms with no improvement. pt denies fever. pt states she does currently receive injections for her arthritis. History of Present Illness HPI narrative: Patient is a 73-year-old female with past medical history of rheumatoid arthritis on infliximab who presents emergency department for evaluation of cough. Onset was subacute, over the last 3 weeks. Previous smoker, has not smoked in many years and is not smoking currently. There is associated sore throat and ear fullness as well as rhinorrhea. Due to persistent symptoms she presents here for continued evaluation. Related Data Home Medications Medication Instructions Recorded Confirmed alendronate 70 mg tablet 70 mg PO WEEKLY bones 01/15/21 07/04/23 methotrexate (PF) 25 mg/0.5 mL 25 mg SQ WEEKLY * 01/15/21 07/04/23 subcutaneous auto-injector aspirin 81 mg tablet,delayed 81 mg PO DAILY heart health 10/19/22 03/31/23 release (Adult Low Dose Aspirin) omeprazole 40 mg capsule,delayed 40 mg PO DAILY Acid reflux 10/19/22 07/04/23 release triamcinolone acetonide 0.1 % 1 applic topical BID * 10/19/22 03/31/23 topical cream infliximab 100 mg intravenous 443 mg IV MONTHLY Rapid heart rate 12/05/2206/16 solution (Remicade) diclofenac sodium 1 % topical gel 2 g topical 02/01/23 03/31/23 Previous Rx's Medication Instructions Recorded duloxetine 60 mg capsule,delayed 60 mg PO DAILY depression #90 caps 08/04/22 release cholecalciferol (vitamin D3) 25 See Rx Instructions .Route 02/01/23 mcg (1,000 unit) tablet .COMPLEX Supplement #90 tabs ergocalciferol (vitamin D2) 1,250 See Rx Instructions .Route 02/01/23 mcg (50,000 unit) capsule .COMPLEX Supplement #14 caps semaglutide 0.25 mg or 0.5 mg (2 See Rx Instructions .Route 02/20/23 mg/3 mL) subcutaneous pen injector .COMPLEX Diabetes #3 mL (Ozempic) pregabalin 75 mg capsule (Lyrica) 75 mg PO DAILY Pain #30 caps 03/31/23 nystatin 100,000 unit/gram topical 1 applic topical BID #15 grams 04/04/23 cream minocycline 100 mg tablet 100 mg PO BID 10 days #20 tabs 04/12/23 mupirocin 2 % topical ointment 1 applic topical BID #15 grams 04/12/23 rosuvastatin 20 mg tablet (Crestor) 20 mg PO DAILY cholesterol #90 tabs 04/21/23 bisoprolol fumarate 5 mg tablet 5 mg PO QDAY hypertension #90 tabs 05/26/23 folic acid 1 mg tablet 1 mg PO TID Supplement #90 tabs 05/26/23 lisinopril 20 1 tab PO DAILY bp #90 tabs 05/26/23 mg-hydrochlorothiazide 25 mg tablet loratadine 10 mg tablet 10 mg PO DAILY #30 tabs 07/04/23 methylprednisolone 4 mg tablets in See Rx Instructions .Route 07/04/23 a dose pack (Medrol (Niels)) .COMPLEX 6 days #21 tabs plxaoaeaejhbqre-krobqtwiwzzkgjh-QL 5 ml PO Q6H PRN cold symptoms #118 07/15/23 2 mg-30 mg-10 mg/5 mL oral syrup mL (Bromfed DM) Allergies Allergy/AdvReac Type Severity Reaction Status Date / Time No Known Allergies Allergy Verified 07/04/23 16:55 [facility] Disclaimer: The information contained in this section may have been updated after the patient was seen, as this information can be updated by other users. 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) Diabetes mellitus, type 2 History of diabetes mellitus History of gastroesophageal reflux (GERD) History of hypertension Hyperlipidemia (~01/10/18) Rheumatoid arthritis Vitamin D deficiency (~06/25/18) Surgical History , FURNACE UNLOADER) History of laparoscopic cholecystectomy Family History , FURNACE UNLOADER) Cancer Social History Smoking Status: Former smoker alcohol intake: never substance use type: denies use current occupational status: retired Travel in the last 8 weeks: None household members: spouse and family housing: house caffeine: Yes ROS Obtained: Yes Systems reviewed as appropriate & no additional complaints except as documented Physical Exam General General appearance: alert and in no apparent distress Head Head exam: atraumatic and normocephalic Eye Eye exam: Present PERRL and EOMI ENT ENT exam: Present mucous membranes moist and TM's normal bilaterally; Absent normal oropharynx (Erythematous posterior oropharynx, uvula midline, no asymmetric swelling, no significant purulence.) Neck Neck exam: Present normal inspection Chest Chest inspection: Present normal inspection and symmetric chest wall rise Respiratory Respiratory exam: Present normal lung sounds bilaterally; Absent respiratory distress Cardiovascular Cardiovascular exam: Present regular rate and normal rhythm Abdominal Exam Abdominal exam: Present soft Extremities Exam Extremities exam: Present normal inspection Neurological Exam Neurological exam: Present alert Psychiatric Psychiatric exam: Present normal affect Skin Skin exam: Present warm and dry Medical Decision Making Abelardo Inquiry Pt receiving controlled substance: No Vital Signs: 07/15/23 10:45 Temperature 98.4 F Temperature Source Oral Pulse Rate [Right Radial] 83 Respiratory Rate 18 Blood Pressure [Right Arm] 101/43 L Blood Pressure Mean [Right Arm] 62 Blood Pressure Source [Right Arm] Automatic Cuff Blood Pressure Position [Right Arm] Sitting 02 Sat by Pulse Oximetry 93 L Oxygen Delivery Method Room Air Lab Data Lab Results 07/15/23 10:50: SARS-CoV-2 (PCR) Not detected, Influenza A Untype (PCR) Not detected, Influenza Type B (PCR) Not detected 07/15/23 11:07: Group A Strep Rapid Negative Orders (Tests/Meds): ORDERS Category Date Time Status CXR 2 view (NOT portable) [XR chest 2V] Stat Exams 07/15/23 10:57 Completed Rapid PCR Covid and Flu A/B Stat Lab 07/15/23 10:50 Completed Strep Scrn Group A (Rapid) Stat Lab 07/15/23 11:07 Completed Strep Screen Confirmation Stat Micro 07/15/23 11:07 Received Medical Decision Narrative: In summary patient is a 73-year-old female with past medical history described above who presents emergency department for evaluation of subacute cough. Patient is hemodynamically stable nontoxic-appearing upon arrival, afebrile. Patient is clear to auscultation all lung trevino. Differential includes viral syndrome, influenza, pneumonia, among others. Limited workup will be conducted with viral swab, strep swab, two-view chest x-ray. Recent blood work obtained at the end of June shows no significant immunosuppression of cell lines to be concerned for neutropenic infection. Workup with labs and additional imaging was considered however given that patient has no fever, no tachycardia or significant respiratory distress will be deferred at this time. Chest x-ray informally interpreted by me, no acute lobar opacities or large pneumothorax, formal reading shows no acute pathology. Viral swab and strep swab negative. Given this patient has presumed viral syndrome and will be discharged with Bromfed for symptomatic control and follow-up with PCP on an outpatient basis. Critical Care Critical Care Time Critical Care Time: No
--- NOTE | 2023-07-15 10:57 | XR_ITS ---
PROCEDURE INFORMATION: Exam: XR Chest Exam date and time: 07/15/2023 10:54 AM Age: 73 years old Clinical indication: Cough; Additional info: Subacute cough TECHNIQUE: Imaging protocol: Radiologic exam of the chest. Views: 2 views. COMPARISON: CR XR CHEST 2V 10/24/2022 12:36 PM FINDINGS: Lungs: Calcified granuloma left lower lobe. Bibasilar atelectasis versus parenchymal scarring. Pleural spaces: Unremarkable. No pleural effusion. No pneumothorax. Heart/Mediastinum: Unremarkable. No cardiomegaly. Bones/joints: Unremarkable. IMPRESSION: No evidence of acute cardiopulmonary disease.
[2023-07-15 11:00] LABS: Coronavirus 19, PCR Not Detected (NotDetected); Influenza A, PCR Not Detected (NotDetected); Influenza B, PCR Not Detected (NotDetected)
[2023-07-15 11:21] LABS: Strep Scrn Group A (Rapid) Negative (Negative)
[2023-07-15 11:43] VITALS: BP 91/50; PULSE 72; RESP 16; O2SAT 97
[2023-07-15 11:50] VITALS: BP 91/50; PULSE 72; RESP 18; TEMP 36.9; O2SAT 97
== END 2023-07-15 11:51 | disposition home or self-care (01) ==
PROVIDERS: Emergency Provider Emergency Medicine; PCP Physician Assistant
DX: R05.9 Cough, unspecified (principal); J02.9 Acute pharyngitis, unspecified; J06.9 Acute upper respiratory infection, unspecified; M06.9 Rheumatoid arthritis, unspecified; E11.9 Type 2 diabetes mellitus without complications; E78.5 Hyperlipidemia, unspecified; Z87.891 Personal history of nicotine dependence
CPT/HCPCS: 71046; 87430; 87636; 99284

== ENCOUNTER 2023-07-24 23:31 | Outpatient (CLI) | payer MEDICARE, SELFPAY ==
[2023-07-24 19:46] LABS: Basophils # 0.1 K/mm3 (0-0.2); Basophils % 0.6 % (0.1-2.0); Eosinophils # 0.6 K/mm3 (0.0-0.4); Eosinophils % 6.3 % (0.1-12.0); Hematocrit 30.3 % (37.0-47.0); Hemoglobin 10.4 g/dL (12.2-16.2); Lymphocytes # 1.9 K/mm3 (0.7-4.5); Lymphocytes % 21.3 % (10-50); Mean Corpuscular HGB Conc 34.2 g/dL (31.8-35.4); Mean Corpuscular Hemoglobin 32.9 pg (27.0-31.2); Mean Corpuscular Volume 96.1 fl (81-99); Mean Platelet Volume 9.9 fl (7.4-10.4); Monocytes # 0.7 K/mm3 (0.1-1.0); Monocytes % 7.9 % (1.7-9.3); Neutrophils # 5.6 K/mm3 (1.8-7.8); Neutrophils % 63.9 % (37.0-80.0); Platelet Count 304 K/mm3 (142-424); Red Blood Count 3.15 M/mm3 (4.20-5.40); Red Cell Distribution Width 15.4 % (11.5-17.5); White Blood Count 8.8 K/mm3 (4.8-10.8)
[2023-07-24 20:08] LABS: Chloride 91 mmol/L (98-107)
[2023-07-24 20:09] LABS: Potassium 4.2 mmoL/L (3.5-5.1); Sodium 128 mmol/L (136-145)
[2023-07-24 20:11] LABS: Alanine Aminotransferase 27 U/L (12-78); Anion Gap 15.2 mEq/L (5-15); Aspartate Amino Transferase 42 U/L (14-36); Bilirubin,Total 0.4 mg/dl (0.2-1.3); Blood Urea Nitrogen 17 mg/dl (7-17); Carbon Dioxide 26 mmol/L (22.0-30.0); Estimated Glomerular Filt Rate 55 ml/min (>60); GFR (African American) 66 ML/MIN (>60)
[2023-07-24 20:12] LABS: Albumin Level 3.7 g/dl (3.5-5.0); Albumin/Globulin Ratio 1.1 (1.1-1.8); Alkaline Phosphatase 96 U/L (38-126); Calcium 8.7 mg/dl (8.4-10.2); Chol/HDL Ratio 3.2 (1-3.5); Cholesterol 136 mg/dl (140-200); Globulin 3.3 g/dL (1.3-3.2); Glucose 192 mg/dl (74-100); HDL Cholesterol 43 mg/dl (40-60); Triglycerides 168 mg/dl (30-150); VLDL Cholesterol 34 mg/dL (0-40)
[2023-07-24 20:23] LABS: Direct LDL Cholesterol 61.33 mg/dL (100-129)
[2023-07-24 20:41] LABS: Thyroid Stimulating Hormone 0.79 uIU/mL (0.465-4.68)
[2023-07-25 16:37] LABS: Iron 79 ug/dL (37-170)
[2023-07-25 16:46] LABS: Total Iron Binding Capacity 315 ug/dL (265-497)
[2023-07-25 17:13] LABS: Ferritin 96.1 ng/ml (11.1-264)
== END 2023-07-24 23:59 ==
LOC: LAB.DROPOF 23:33
PROVIDERS: PCP Physician Assistant; Visit Provider Physician Assistant
DX: E11.9 Type 2 diabetes mellitus without complications (principal); R53.83 Other fatigue; D84.9 Immunodeficiency, unspecified; E55.9 Vitamin D deficiency, unspecified; E78.5 Hyperlipidemia, unspecified; F32.9 Major depressive disorder, single episode, unspecified; G62.9 Polyneuropathy, unspecified; I10 Essential (primary) hypertension; Z53.20 Procedure and treatment not carried out because of patient's decision for unspecified reasons; J02.9 Acute pharyngitis, unspecified; D64.9 Anemia, unspecified; Z79.899 Other long term (current) drug therapy
CPT/HCPCS: 80053; 80061; 82728; 83036; 83540; 83550; 84443; 85025; 87070

== ENCOUNTER 2023-08-15 10:18 | Outpatient (CLI) | payer MEDICARE, SELFPAY ==
[2023-08-15 11:21] LABS: Chloride 96 mmol/L (98-107); Sodium 131 mmol/L (136-145)
[2023-08-15 11:24] LABS: Blood Urea Nitrogen 14 mg/dl (7-17); Calcium 9.5 mg/dl (8.4-10.2); Carbon Dioxide 28 mmol/L (22.0-30.0); Estimated Glomerular Filt Rate 71 ml/min (>60); GFR (African American) 85 ML/MIN (>60); Glucose 194 mg/dl (74-100)
== END 2023-08-15 23:59 ==
PROVIDERS: PCP Physician Assistant; Visit Provider Physician Assistant
DX: R89.9 Unspecified abnormal finding in specimens from other organs, systems and tissues (principal)
CPT/HCPCS: 36415; 80048

== ENCOUNTER 2024-01-08 12:06 | Outpatient (CLI) | payer MEDICARE, SELFPAY ==
[2024-01-08 19:02] LABS: Basophils % 0.5 % (0.1-2.0); Eosinophils # 0.1 K/mm3 (0.0-0.4); Eosinophils % 1.1 % (0.1-12.0); Hematocrit 34.6 % (37.0-47.0); Hemoglobin 11.1 g/dL (12.2-16.2); Lymphocytes # 1.2 K/mm3 (0.7-4.5); Lymphocytes % 14.1 % (10-50); Mean Corpuscular HGB Conc 32.1 g/dL (31.8-35.4); Mean Corpuscular Hemoglobin 32.4 pg (27.0-31.2); Mean Corpuscular Volume 100.7 fl (81-99); Mean Platelet Volume 9.8 fl (7.4-10.4); Monocytes # 0.4 K/mm3 (0.1-1.0); Monocytes % 4.6 % (1.7-9.3); Neutrophils # 6.6 K/mm3 (1.8-7.8); Neutrophils % 79.8 % (37.0-80.0); Platelet Count 296 K/mm3 (142-424); Red Blood Count 3.43 M/mm3 (4.20-5.40); Red Cell Distribution Width 16.9 % (11.5-17.5); White Blood Count 8.3 K/mm3 (4.8-10.8)
[2024-01-08 19:26] LABS: Chloride 105 mmol/L (98-107); Potassium 4.6 mmoL/L (3.5-5.1); Sodium 138 mmol/L (136-145)
[2024-01-08 19:28] LABS: Alanine Aminotransferase 34 U/L (12-78); Alkaline Phosphatase 61 U/L (38-126); Aspartate Amino Transferase 32 U/L (14-36); Bilirubin,Total 0.3 mg/dl (0.2-1.3); Blood Urea Nitrogen 19 mg/dl (7-17); Estimated Glomerular Filt Rate 62 ml/min (>60); GFR (African American) 74 ML/MIN (>60)
[2024-01-08 19:29] LABS: Albumin/Globulin Ratio 1.3 (1.1-1.8); Anion Gap 10.6 mEq/L (5-15); Calcium 9.1 mg/dl (8.4-10.2); Carbon Dioxide 27 mmol/L (22.0-30.0); Chol/HDL Ratio 4.3 (1-3.5); Cholesterol 316 mg/dl (140-200); Glucose 136 mg/dl (74-100); HDL Cholesterol 73 mg/dl (40-60); Triglycerides 176 mg/dl (30-150); VLDL Cholesterol 35 mg/dL (0-40)
[2024-01-08 19:40] LABS: Direct LDL Cholesterol 187.27 mg/dL (100-129)
[2024-01-08 19:41] LABS: 25-OH Vitamin D, Total 33.7 ng/mL (30-100)
[2024-01-08 20:04] LABS: Thyroid Stimulating Hormone 0.72 uIU/mL (0.465-4.68)
[2024-01-08 20:07] LABS: Hemoglobin A1C 6.2 % (4.0-6.0)
[2024-01-11 11:39] LABS: Peripheral Smear Review Scanned Result
== END 2024-01-08 23:59 | disposition home or self-care (01) ==
LOC: LAB.DROPOF 01-09 12:07
PROVIDERS: PCP Physician Assistant; Visit Provider Physician Assistant
DX: E11.9 Type 2 diabetes mellitus without complications (principal); I10 Essential (primary) hypertension; R53.83 Other fatigue; E55.9 Vitamin D deficiency, unspecified; E78.5 Hyperlipidemia, unspecified; Z87.891 Personal history of nicotine dependence; Z79.84 Long term (current) use of oral hypoglycemic drugs; Z79.85 Long-term (current) use of injectable non-insulin antidiabetic drugs
CPT/HCPCS: 80050; 80053; 80061; 82306; 83036; 84443; 85025

== ENCOUNTER 2024-04-01 12:10 | Emergency (ER) | payer MEDICARE, SELFPAY ==
[2024-04-01 12:30] VITALS: BP 96/50; PULSE 98; RESP 20; TEMP 37.3; O2SAT 97; BMI 36.8
--- NOTE | 2024-04-01 12:36 | EXP.UTC ---
Discharge Plan Disposition Patient Disposition: Home, Self-Care Condition: Good Prescriptions Prescriptions: New benzonatate 100 mg capsule 100 mg PO TIDP PRN (Reason: Cough) Qty: 30 0RF cefdinir 300 mg capsule 300 mg PO BID Qty: 20 0RF No Action lisinopril 20 mg tablet 20 mg PO DAILY Patient Comments: TAKE 1 TABLET BY MOUTH DAILY alendronate 70 mg tablet 70 mg PO DAILY folic acid 1 mg tablet 3 mg PO DAILY Patient Comments: TAKE 3 TABLETS BY MOUTH DAILY ergocalciferol (vitamin D2) 1,250 mcg (50,000 unit) capsule 1,250 mcg PO WEEKLY Patient Comments: TAKE 1 CAPSULE BY MOUTH WEEKLY FOR SUPPLEMENT duloxetine 60 mg capsule,delayed release(DR/EC) 1 mg PO DAILY Patient Comments: TAKE 1 CAPSULE BY MOUTH DAILY. pregabalin 225 mg capsule 225 mg PO DAILY cholecalciferol (vitamin D3) 25 mcg (1,000 unit) tablet 25 mcg PO DAILY Januvia 100 mg tablet 100 mg PO DAILY Patient Comments: TAKE 1 TABLET BY MOUTH EVERY DAY Ozempic 1 mg/dose (4 mg/3 mL) pen injector 1 mg SQ WEEKLY Referrals Follow up/Referrals: Joseph Nation MD [Primary Care Provider] - See instructions Activity Restrictions/Add. Instructions Additional Instructions/Restrictions: Drink plenty of fluids. Take tylenol or ibuprofen for pain or fever. Take the medications as directed. Follow up with your regular doctor. GO TO THE ER FOR ANY WORSENING SYMPTOMS The pyridium will make your urine turn orange, this is an expected side effect. It will stain your clothes if it comes into contact with them. We will culture the urine. That will tell what bacteria is causing your infection and which antibiotics will treat it best.This test takes 3 days to complete. Clinical Impressions Clinical Impression: Acute UTI, Acute viral syndrome, Exposure to 2019 novel coronavirus Instructions Patient Instructions: Urine Culture, DI for Urinary Tract Infection (UTI), DI for Viral Syndrome Print Language Print Language: Luxembourgish Discharge ED Provider: Cas Macias [facility] General Stated complaint: chilling and confused Time Seen by Provider: 04/01/24 12:36 Related Data Home Medications ?Medication ?Instructions ?Recorded ?Confirmed alendronate 70 mg tablet 70 mg PO DAILY 04/01/24 04/01/24 cholecalciferol (vitamin D3) 25 25 mcg PO DAILY 04/01/24 04/01/24 mcg (1,000 unit) tablet duloxetine 60 mg capsule,delayed 1 mg PO DAILY 04/01/24 04/01/24 release ergocalciferol (vitamin D2) 1,250 1,250 mcg PO WEEKLY 04/01/24 04/01/24 mcg (50,000 unit) capsule folic acid 1 mg tablet 3 mg PO DAILY 04/01/24 04/01/24 lisinopril 20 mg tablet 20 mg PO DAILY 04/01/24 04/01/24 pregabalin 225 mg capsule 225 mg PO DAILY 04/01/24 04/01/24 semaglutide 1 mg/dose (4 mg/3 mL) 1 mg SQ WEEKLY 04/01/24 04/01/24 subcutaneous pen injector (Ozempic) sitagliptin phosphate 100 mg 100 mg PO DAILY 04/01/24 04/01/24 tablet (Januvia) Previous Rx's ?Medication ?Instructions ?Recorded benzonatate 100 mg capsule 100 mg PO TIDP PRN Cough #30 caps 04/01/24 cefdinir 300 mg capsule 300 mg PO BID #20 caps 04/01/24 Allergies Allergy/AdvReac Type Severity Reaction Status Date / Time No Known Allergies Allergy Verified 01/08/24 09:01 [facility] Disclaimer: The information contained in this section may have been updated after the patient was seen, as this information can be updated by other users. 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 Rheumatoid arthritis Diabetes mellitus, type 2 History of gastroesophageal reflux (GERD) History of hypertension History of diabetes mellitus Vitamin D deficiency (~06/25/18) Hyperlipidemia (~01/10/18) Surgical History History of laparoscopic cholecystectomy Family History Other Cancer Social History Smoking Status: Former smoker alcohol intake: never substance use type: denies use current occupational status: retired Travel in the last 8 weeks: None household members: spouse and family housing: house caffeine: Yes ROS Obtained: Yes All systems reviewed & no additional complaints except as documented and Yes Systems reviewed as appropriate & no additional complaints except as documented Constitutional Constitutional: Denies chills and Denies fever(s) Eyes Eyes: Denies eye discharge ENT Ears, Nose, Mouth, and Throat: Denies dizziness, Denies otalgia and Denies sore throat Cardiovascular Cardiovascular: Denies chest pain Respiratory Respiratory: Denies shortness of breath, Denies chest congestion, Denies cough, Denies stridor and Denies wheezing Gastrointestinal Gastrointestingal: Denies nausea or vomiting Musculoskeletal Musculoskeletal: Reports system reviewed and no additional complaints, except as documented and Denies arthralgias Integumentary/Breasts Skin/Breast: Denies rash Neurologic Neurologic: Denies dizziness and Denies paresthesias Allergic/Immunologic Allergic/Immunologic: Denies wheezing Physical Exam General General appearance: alert and in no apparent distress Head Head exam: atraumatic, normocephalic and normal inspection Eye Eye exam: Present normal appearance, PERRL and EOMI ENT ENT exam: Present mucous membranes moist and normal external ear exam Expanded ENT Exam TM/Canal exam: Bilateral TM: erythema and bulging Nose exam: Absent sinus tenderness Mouth exam: Present normal external inspection; Absent drooling Teeth exam: Present normal inspection Throat exam: Present tonsillar erythema, tonsillomegaly and tonsillar exudate Neck Neck exam: Present normal inspection, full ROM and trachea midline; Absent tenderness, meningismus or lymphadenopathy Chest Chest inspection: Present normal inspection and symmetric chest wall rise; Absent tenderness Respiratory Respiratory exam: Present normal lung sounds bilaterally; Absent respiratory distress, wheezes, stridor or accessory muscle use Cardiovascular Cardiovascular exam: Present regular rate and normal rhythm; Absent systolic murmur or diastolic murmur Abdominal Exam Abdominal exam: Present soft and normal bowel sounds; Absent distention, tenderness, guarding, rebound or rigidity Extremities Exam Extremities exam: Present normal inspection and normal capillary refill; Absent calf tenderness Back Exam Back exam: Present normal inspection and full ROM; Absent tenderness, CVA tenderness (R) or CVA tenderness (L) Neurological Exam Neurological exam: Present alert, oriented X3 and CN II-XII intact Psychiatric Psychiatric exam: Present normal affect and normal mood Skin Skin exam: Present warm, dry, intact and normal color Medical Decision Making Medical Records Medical records reviewed: No I reviewed the patient's medical records. Abelardo Inquiry Pt receiving controlled substance: No Lab Data Lab results reviewed: Yes I reviewed the patient's lab results.
[2024-04-01 12:51] LABS: Apearance,Urine Cloudy (Clear); Color,Urine Yellow (Yellow); Glucose,Urine (UA) Negative (Negative); Protein,Urine Trace (Negative)
[2024-04-01 12:52] LABS: Bilirubin,Urine Negative (Negative); Blood, Urine Trace (Negative); Ketones,Urine Negative (Negative); UTC Leukocyte Esterase,Urine 1+ (Negative); UTC Nitrate,Urine Negative (Negative); Urobilinogen,Urine 0.2 EU/dl (0.2)
[2024-04-01 13:07] VITALS: BP 96/50; PULSE 98; RESP 20; TEMP 37.3; O2SAT 97
== END 2024-04-01 13:16 | disposition home or self-care (01) ==
PROVIDERS: Emergency Provider Nurse Practitioner Family; PCP Internal Medicine Adolescent Medicine
DX: N39.0 Urinary tract infection, site not specified (principal); B96.89 Other specified bacterial agents as the cause of diseases classified elsewhere; R41.0 Disorientation, unspecified; R68.83 Chills (without fever)
CPT/HCPCS: 81003; 87086; 87635; 99212; 99214; G0463

== ENCOUNTER 2024-05-03 12:13 | Emergency (ER) | payer MEDICARE, SELFPAY ==
--- NOTE | 2024-05-03 12:36 | ED_ITS ---
Discharge Plan Disposition Patient Disposition: Home, Self-Care Condition: Good Prescriptions Prescriptions: New clindamycin HCl 300 mg capsule 300 mg PO Q8H Qty: 30 0RF mupirocin 2 % ointment 1 applic topical TID 7 Days Qty: 15 0RF No Action cholecalciferol (vitamin D3) 25 mcg (1,000 unit) tablet See Rx Instructions .ROUTE .COMPLEX Qty: 90 0RF Dose Instruction: FOR SUPPLEMENT: TAKE 1 TABLET BY MOUTH EVERY DAY FOR SUPPLEMENT ADMINISTER WITH MEAL Rx Instructions: FOR SUPPLEMENT: TAKE 1 TABLET BY MOUTH EVERY DAY FOR SUPPLEMENT ADMINISTER WITH MEAL lisinopril 20 mg tablet 20 mg PO DAILY Patient Comments: TAKE 1 TABLET BY MOUTH DAILY alendronate 70 mg tablet 70 mg PO DAILY folic acid 1 mg tablet 3 mg PO DAILY Patient Comments: TAKE 3 TABLETS BY MOUTH DAILY ergocalciferol (vitamin D2) 1,250 mcg (50,000 unit) capsule 1,250 mcg PO WEEKLY Patient Comments: TAKE 1 CAPSULE BY MOUTH WEEKLY FOR SUPPLEMENT duloxetine 60 mg capsule,delayed release(DR/EC) 1 mg PO DAILY Patient Comments: TAKE 1 CAPSULE BY MOUTH DAILY. pregabalin 225 mg capsule 225 mg PO DAILY Januvia 100 mg tablet 100 mg PO DAILY Patient Comments: TAKE 1 TABLET BY MOUTH EVERY DAY Ozempic 1 mg/dose (4 mg/3 mL) pen injector 1 mg SQ WEEKLY benzonatate 100 mg capsule 100 mg PO TIDP PRN (Reason: Cough) Qty: 30 0RF cefdinir 300 mg capsule 300 mg PO BID Qty: 20 0RF prednisone 5 mg tablet 5 mg PO DAILY diclofenac sodium 1 % gel 1 ea TOPICAL DIRECTED Referrals Follow up/Referrals: Provider,Referral, MD [Primary Care Provider] - See instructions Activity Restrictions/Add. Instructions Additional Instructions/Restrictions: Keep the affected area clean and dry. Watch the area for signs of infection, such as redness, swelling, drainage, fever. etc. Take tylenol for pain. Follow up with your regular doctor. Follow up with orthopedic. I put in a referral to Dr. Storm. Please call him and get an appointment to be seen there if your knee continues to hurt. GO TO THE ER FOR ANY WORSENING SYMPTOMS OR CONCERNS. Clinical Impressions Clinical Impression: Cellulitis of face, Left knee pain Instructions Patient Instructions: Cellulitis, DI for Knee Pain Print Language Print Language: Tanzanian Discharge ED Provider: Cas Macias [facility] HPI General Stated complaint: red spot on chin Time Seen by Provider: 05/03/24 12:36 History of Present Illness Provider Complaint: She states that for the past 3 days she has had a red area on her chin. She states that the red area is getting larger and more painful. She denies any fever/chills/malaise. She has also had left knee pain for the past 1 week. She denies any injury. Related Data Home Medications ?Medication ?Instructions ?Recorded ?Confirmed alendronate 70 mg tablet 70 mg PO DAILY 04/01/24 04/01/24 duloxetine 60 mg capsule,delayed 1 mg PO DAILY 04/01/24 05/03/24 release ergocalciferol (vitamin D2) 1,250 1,250 mcg PO WEEKLY 04/01/24 05/03/24 mcg (50,000 unit) capsule folic acid 1 mg tablet 3 mg PO DAILY 04/01/24 05/03/24 lisinopril 20 mg tablet 20 mg PO DAILY 04/01/24 05/03/24 pregabalin 225 mg capsule 225 mg PO DAILY 04/01/24 05/03/24 semaglutide 1 mg/dose (4 mg/3 mL) 1 mg SQ WEEKLY 04/01/24 05/03/24 subcutaneous pen injector (Ozempic) sitagliptin phosphate 100 mg 100 mg PO DAILY 04/01/24 05/03/24 tablet (Januvia) diclofenac sodium 1 % topical gel 1 ea topical DIRECTED 05/03/24 05/03/24 prednisone 5 mg tablet 5 mg PO DAILY 05/03/24 05/03/24 Previous Rx's ?Medication ?Instructions ?Recorded benzonatate 100 mg capsule 100 mg PO TIDP PRN Cough #30 caps 04/01/24 cefdinir 300 mg capsule 300 mg PO BID #20 caps 04/01/24 cholecalciferol (vitamin D3) 25 See Rx Instructions .Route 04/15/24 mcg (1,000 unit) tablet .COMPLEX #90 tabs clindamycin HCl 300 mg capsule 300 mg PO Q8H #30 caps 05/03/24 mupirocin 2 % topical ointment 1 applic topical TID 7 days #15 05/03/24 grams Allergies Allergy/AdvReac Type Severity Reaction Status Date / Time No Known Allergies Allergy Verified 01/08/24 09:01 [facility] Disclaimer: The information contained in this section may have been updated after the patient was seen, as this information can be updated by other users. 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 Rheumatoid arthritis Diabetes mellitus, type 2 History of gastroesophageal reflux (GERD) History of hypertension History of diabetes mellitus Vitamin D deficiency (~06/25/18) Hyperlipidemia (~01/10/18) Surgical History History of laparoscopic cholecystectomy Family History Other Cancer Social History Smoking Status: Former smoker alcohol intake: never substance use type: denies use current occupational status: retired Travel in the last 8 weeks: None household members: spouse and family housing: house caffeine: Yes ROS Obtained: Yes All systems reviewed & no additional complaints except as documented Constitutional Constitutional: Denies chills and Denies fever(s) Eyes Eyes: Denies eye discharge ENT Ears, Nose, Mouth, and Throat: Denies dizziness, Denies otalgia and Denies sore throat Cardiovascular Cardiovascular: Denies chest pain Respiratory Respiratory: Denies shortness of breath, Denies chest congestion, Denies cough, Denies stridor and Denies wheezing Gastrointestinal Gastrointestingal: Denies nausea or vomiting Musculoskeletal Musculoskeletal: Reports as per HPI Integumentary/Breasts Skin/Breast: Reports as per HPI and Reports redness Neurologic Neurologic: Denies dizziness and Denies paresthesias Allergic/Immunologic Allergic/Immunologic: Denies wheezing Physical Exam General General appearance: alert and in no apparent distress Head Head exam: atraumatic, normocephalic and normal inspection Eye Eye exam: Present normal appearance, PERRL and EOMI ENT ENT exam: Present normal exam, normal oropharynx, mucous membranes moist, TM's normal bilaterally and normal external ear exam Neck Neck exam: Present normal inspection, full ROM and trachea midline; Absent meningismus or lymphadenopathy Chest Chest inspection: Present normal inspection and symmetric chest wall rise; Absent tenderness Respiratory Respiratory exam: Present normal lung sounds bilaterally; Absent respiratory distress Cardiovascular Cardiovascular exam: Present regular rate and normal rhythm; Absent JVD Abdominal Exam Abdominal exam: Present soft and normal bowel sounds; Absent distention, tenderness or guarding Extremities Exam Extremities exam: Present normal capillary refill; Absent calf tenderness Expanded Lower Extremity Exam Left: Upper leg exam: Present normal inspection and full ROM; Absent tenderness Knee exam: Present full ROM, tenderness and knee extension intact; Absent swelling, abrasion, laceration, ecchymosis, deformity, crepitus, dislocation, erythema, effusion, anterior drawer sign, posterior draw sign, pain with valgus, laxity with valgus, pain with varus or laxity with varus Lower leg exam: Present normal inspection, full ROM and Achilles tendon intact; Absent tenderness or Homans' sign Ankle exam: Present normal inspection and full ROM; Absent tenderness Foot/toe exam: Present normal inspection and full ROM; Absent tenderness Neurovascular/Tendon exam: Present normal capillary refill, normal 2-point discrimination and normal fine/light touch; Absent pulse deficit, motor deficit, sensory deficit, tendon deficit, extremity cold to touch or pallor Gait: observed and normal Back Exam Back exam: Present normal inspection; Absent tenderness Neurological Exam Neurological exam: Present alert and oriented X3 Psychiatric Psychiatric exam: Present normal affect and normal mood Skin Skin exam: Present erythema (there is an area of redness on her chin that measures 3 cm diameter. There is no induration, no swelling, no open wound or drainage. ) Lymphatic Lymphatic Findings: no adenopathy Medical Decision Making Medical Records Medical records reviewed: No I reviewed the patient's medical records. Screening: Per USPSTF and CDC recommendations, given the prevalence of disease in our region, it is our hospital?s policy to screen for HIV and viral Hepatitis for all patients aged 18 and over and those with ongoing risk factors. Abelardo Inquiry Pt receiving controlled substance: No Radiology Data #1: Image(s): Knee Image Reviewed: Yes I reviewed the patient's radiology image and Yes I have reviewed radiologist's interpretation Preliminary Findings: No Fracture Seen Accession No. 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 Views: 3 views. COMPARISON: No relevant prior studies available. FINDINGS: Bones/joints: No fractures, dislocations, or bone lesions. No significant joint space narrowing or widening. Mild bone hypertrophy involving the medial femoral condyle. Soft tissues: No soft tissue gas, radiopaque foreign bodies, or masses. IMPRESSION: 1. No acute findings in the left knee. 2. Mild osteoarthritis in the left knee medial compartment.
[2024-05-03 12:43] VITALS: BP 188/104; PULSE 88; RESP 20; TEMP 36.9; O2SAT 97; BMI 20.5
--- NOTE | 2024-05-03 12:44 | XR_ITS ---
PROCEDURE INFORMATION: Exam: XR Left Knee Exam date and time: 05/03/2024 12:43 PM Age: 74 years old Clinical indication: Pain; Knee; Left; Additional info: Fall TECHNIQUE: Imaging protocol: Radiologic exam of the left knee. Views: 3 views. COMPARISON: No relevant prior studies available. FINDINGS: Bones/joints: No fractures, dislocations, or bone lesions. No significant joint space narrowing or widening. Mild bone hypertrophy involving the medial femoral condyle. Soft tissues: No soft tissue gas, radiopaque foreign bodies, or masses. IMPRESSION: 1. No acute findings in the left knee. 2. Mild osteoarthritis in the left knee medial compartment.
[2024-05-03 13:27] VITALS: BP 188/104; PULSE 88; RESP 20; TEMP 36.9
== END 2024-05-03 13:40 | disposition home or self-care (01) ==
PROVIDERS: Emergency Provider Nurse Practitioner Family
DX: L03.211 Cellulitis of face (principal); M25.562 Pain in left knee
CPT/HCPCS: 73562; 99212; G0381

== ENCOUNTER 2024-06-18 12:36 | Emergency (ER) | payer MEDICARE, SELFPAY ==
--- NOTE | 2024-06-18 12:47 | XR_ITS ---
FINAL REPORT CLINICAL HISTORY: fall, pain COMPARISON: None FINDINGS: Two views of the right femur were obtained. There is no acute fracture or dislocation. There are mild degenerative changes of the right hip hip and right knee. There is no acute soft tissue abnormality. Mild vascular calcifications are noted. IMPRESSION: Degenerative changes without acute abnormality identified. Reviewed, Interpreted and Dictated by Cisco Stokes III, MD Transcribed by Carey Moseley Authenticated and . [facility]
--- NOTE | 2024-06-18 12:47 | XR_ITS ---
FINAL REPORT CLINICAL HISTORY: fall, pain COMPARISON: None FINDINGS: RIGHT HIP 2 views of the right hip with an AP pelvis view demonstrate no acute fracture or dislocation. Mild degenerative changes are noted. The visualized bony structures are well aligned. No soft tissue abnormality is seen. IMPRESSION: Degenerative changes without acute bony abnormality. If symptoms are persistent or severe, consider CT or MRI for further evaluation. Reviewed, Interpreted and Dictated by Cisco Stokes III, MD Transcribed by Carey Moseley Authenticated and . [facility]
[2024-06-18 13:18] VITALS: BP 138/84; PULSE 83; RESP 19; TEMP 37.1; O2SAT 97; BMI 30.3
--- NOTE | 2024-06-18 13:24 | EXP.UTC ---
Discharge Plan Disposition Patient Disposition: Home, Self-Care Condition: Good Prescriptions Prescriptions: New methylprednisolone [Medrol (Niels)] 4 mg tablets,dose pack See Rx Instructions .Route .COMPLEX 6 Days Qty: 21 0RF Rx Instructions: taper pack; No Action cholecalciferol (vitamin D3) 25 mcg (1,000 unit) tablet See Rx Instructions .ROUTE .COMPLEX Qty: 90 0RF Dose Instruction: FOR SUPPLEMENT: TAKE 1 TABLET BY MOUTH EVERY DAY FOR SUPPLEMENT ADMINISTER WITH MEAL Rx Instructions: FOR SUPPLEMENT: TAKE 1 TABLET BY MOUTH EVERY DAY FOR SUPPLEMENT ADMINISTER WITH MEAL lisinopril 20 mg tablet 20 mg PO DAILY Patient Comments: TAKE 1 TABLET BY MOUTH DAILY folic acid 1 mg tablet 3 mg PO DAILY Patient Comments: TAKE 3 TABLETS BY MOUTH DAILY ergocalciferol (vitamin D2) 1,250 mcg (50,000 unit) capsule 1,250 mcg PO WEEKLY Patient Comments: TAKE 1 CAPSULE BY MOUTH WEEKLY FOR SUPPLEMENT duloxetine 60 mg capsule,delayed release(DR/EC) 1 mg PO DAILY Patient Comments: TAKE 1 CAPSULE BY MOUTH DAILY. pregabalin 225 mg capsule 225 mg PO DAILY Januvia 100 mg tablet 100 mg PO DAILY Patient Comments: TAKE 1 TABLET BY MOUTH EVERY DAY Ozempic 1 mg/dose (4 mg/3 mL) pen injector 1 mg SQ WEEKLY Referrals Follow up/Referrals: Joseph Castro MD [Primary Care Provider] - See instructions Activity Restrictions/Add. Instructions Additional Instructions/Restrictions: Warm compresses to area may help with pain Take Medrol Dose pack as prescribed Follow up with your Family Doctor if symptoms persist Straight to ER if any life threatening symptoms Clinical Impressions Clinical Impression: Sciatic nerve pain Instructions Patient Instructions: DI for Sciatica, Methylprednisolone Print Language Print Language: Tajik Discharge ED Provider: Sheila Graf [facility] [place] H[place] General Stated complaint: right hip pain AO 06/14 Mode of Arrival: Ambulatory Source of Information: Patient Time Seen by Provider: 06/18/24 13:24 Description of Symptoms (Recalled from Triage Doc. by RN): FELL IN BATHTUB HIT RIGHT HIP/SIDE/LEG HEENT Symptoms (Recalled from RN notes): No Resp Symptoms (Recalled from RN notes): No Skin Symptoms (Recalled from RN notes): No MS Symptoms (Recalled from RN notes): Yes Functional Status (Recalled from RN notes): WNL History of Present Illness Provider Complaint: Patient states that about 5 days ago she was using the bathroom and she stood up and got dizzy and lost her balance and fell into the bathtub hitting her right buttock/hip and right upper leg States that she thought she would be ok but she has been having pain in her right buttock area that goes into her right upper leg and wanted to get it checked out to make sure she didnt break anything States that she has been up walking around on it Denies LOC denies hitting her head or any other injuries Related Data Home Medications ?Medication ?Instructions ?Recorded ?Confirmed duloxetine 60 mg capsule,delayed 1 mg PO DAILY 04/01/24 06/18/24 release ergocalciferol (vitamin D2) 1,250 1,250 mcg PO WEEKLY 04/01/24 06/18/24 mcg (50,000 unit) capsule folic acid 1 mg tablet 3 mg PO DAILY 04/01/24 06/18/24 lisinopril 20 mg tablet 20 mg PO DAILY 04/01/24 06/18/24 pregabalin 225 mg capsule 225 mg PO DAILY 04/01/24 06/18/24 semaglutide 1 mg/dose (4 mg/3 mL) 1 mg SQ WEEKLY 04/01/24 06/18/24 subcutaneous pen injector (Ozempic) sitagliptin phosphate 100 mg 100 mg PO DAILY 04/01/24 06/18/24 tablet (Januvia) Previous Rx's ?Medication ?Instructions ?Recorded cholecalciferol (vitamin D3) 25 See Rx Instructions .Route 04/15/24 mcg (1,000 unit) tablet .COMPLEX #90 tabs methylprednisolone 4 mg tablets in See Rx Instructions .Route 06/18/24 a dose pack (Medrol (Niels)) .COMPLEX 6 days #21 tabs Allergies Allergy/AdvReac Type Severity Reaction Status Date / Time No Known Allergies Allergy Verified 01/08/24 09:01 Worker's Comp Is this a Worker's Comp case?: No [facility] Disclaimer: The information contained in this section may have been updated after the patient was seen, as this information can be updated by other users. 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 Rheumatoid arthritis Diabetes mellitus, type 2 History of gastroesophageal reflux (GERD) History of hypertension History of diabetes mellitus Vitamin D deficiency (~06/25/18) Hyperlipidemia (~01/10/18) Surgical History History of laparoscopic cholecystectomy Family History Other Cancer Social History Smoking Status: Former smoker alcohol intake: never substance use type: denies use current occupational status: retired Travel in the last 8 weeks: None household members: spouse and family housing: house caffeine: Yes ROS Obtained: Yes All systems reviewed & no additional complaints except as documented and Yes Systems reviewed as appropriate & no additional complaints except as documented ENT Ears, Nose, Mouth, and Throat: Reports system reviewed and no additional complaints, except as documented and Reports as per HPI Cardiovascular Cardiovascular: Reports system reviewed and no additional complaints, except as documented and Reports as per HPI Respiratory Respiratory: Reports system reviewed and no additional complaints, except as documented and Reports as per HPI Gastrointestinal Gastrointestingal: Reports system reviewed and no additional complaints, except as documented and as per HPI Musculoskeletal Musculoskeletal: Reports system reviewed and no additional complaints, except as documented, Reports as per HPI and Reports other Comments: Pain in right buttock/hip area and right upper leg Physical Exam General General appearance: alert and in no apparent distress Chest Chest inspection: Present normal inspection and symmetric chest wall rise Respiratory Respiratory exam: Present normal lung sounds bilaterally; Absent respiratory distress or wheezes Cardiovascular Cardiovascular exam: Present regular rate, normal rhythm and normal heart sounds Back Exam Back exam: Present tenderness and sciatic notch tenderness (R) Back 1 view image: 1. reports pain in right buttock area that goes into hip and upper leg worse with sitting or laying on that side Neurological Exam Neurological exam: Present alert, oriented X3 and normal gait Medical Decision Making Medical Records Screening: Per USPSTF and CDC recommendations, given the prevalence of disease in our region, it is our hospital?s policy to screen for HIV and viral Hepatitis for all patients aged 18 and over and those with ongoing risk factors. Abelardo Inquiry Pt receiving controlled substance: No Abelardo was queried for this patient: No Vital Signs: 06/18/24 13:18 Temperature 98.7 F Temperature Source Oral Pulse Rate [Left Radial] 83 Respiratory Rate 19 Blood Pressure [Left Arm] 138/84 Blood Pressure Mean [Left Arm] 102 02 Sat by Pulse Oximetry 97 Orders (Tests/Meds): ORDERS Category Date Time Status XR femur RT 2V Stat Exams 06/18/24 12:47 Ordered XR hip RT 2-3V w/pelvis Stat Exams 06/18/24 12:47 Ordered Radiology Data #1: Image(s): Femur Image Reviewed: Yes I have reviewed radiologist's interpretation Degenerative changes without acute abnormality identified #2: Image(s): Hip Image Reviewed: Yes I have reviewed radiologist's interpretation Degenerative changes without acute bony abnormality, if symptoms are persistent or severe, consider CT or MRI for further evaluation
[2024-06-18 15:01] VITALS: BP 138/84; PULSE 83; RESP 19; TEMP 37.1
== END 2024-06-18 15:03 | disposition home or self-care (01) ==
PROVIDERS: Emergency Provider Nurse Practitioner; PCP Family Medicine
DX: M54.31 Sciatica, right side (principal); M25.551 Pain in right hip; W18.2XXA Fall in (into) shower or empty bathtub, initial encounter; Y93.89 Activity, other specified; Y92.002 Bathroom of unspecified non-institutional (private) residence as the place of occurrence of the external cause
CPT/HCPCS: 73502; 73552; 99212; G0381

== ENCOUNTER 2024-06-28 09:45 | Outpatient (CLI) | payer MEDICARE, SELFPAY ==
[2024-06-28 18:33] LABS: Hemoglobin A1C 6.4 % (4.0-6.0)
[2024-06-28 18:48] LABS: Albumin Level 4.2 g/dl (3.5-5.0); Chloride 105 mmol/L (98-107); Potassium 4.2 mmoL/L (3.5-5.1); Sodium 138 mmol/L (136-145)
[2024-06-28 18:51] LABS: Alanine Aminotransferase 23 U/L (12-78); Albumin/Globulin Ratio 1.6 (1.1-1.8); Alkaline Phosphatase 60 U/L (38-126); Anion Gap 9.2 mEq/L (5-15); Aspartate Amino Transferase 27 U/L (14-36); Bilirubin,Total 0.3 mg/dl (0.2-1.3); Blood Urea Nitrogen 16 mg/dl (7-17); Calcium 9.5 mg/dl (8.4-10.2); Carbon Dioxide 28 mmol/L (22.0-30.0); Cholesterol 259 mg/dl (140-200); Estimated Glomerular Filt Rate 61 ml/min (>60); GFR (African American) 74 ML/MIN (>60); Globulin 2.7 g/dL (1.3-3.2); Glucose 96 mg/dl (74-100); Total Protein,Serum 6.9 g/dl (6.3-8.2); Triglycerides 451 mg/dl (30-150)
[2024-06-28 19:02] LABS: Direct LDL Cholesterol 118.83 mg/dL (100-129)
[2024-06-28 19:32] LABS: Chol/HDL Ratio 4.5 (1-3.5); HDL Cholesterol 57 mg/dl (40-60)
== END 2024-06-28 23:59 | disposition home or self-care (01) ==
LOC: LAB.DROPOF 06-29 09:15
PROVIDERS: PCP Family Medicine; Visit Provider Family Medicine
DX: E11.9 Type 2 diabetes mellitus without complications (principal); Z12.11 Encounter for screening for malignant neoplasm of colon
CPT/HCPCS: 80053; 80061; 83036

== ENCOUNTER 2024-09-13 19:16 | Emergency (ER) | payer MEDICARE, SELFPAY ==
[2024-09-13 19:22] VITALS: BP 117/93; PULSE 83; RESP 18; TEMP 36.8; O2SAT 98; BMI 32.5
[2024-09-13 19:26] VITALS: BP 156/90; PULSE 78; RESP 16; O2SAT 92
[2024-09-13 19:42] LABS: Coronavirus 19, PCR Not Detected (NotDetected); Influenza B, PCR Not Detected (NotDetected)
--- NOTE | 2024-09-13 19:53 | XR_ITS ---
PROCEDURE INFORMATION: Exam: XR Left Forearm Exam date and time: 09/13/2024 8:06 PM Age: 74 years old Clinical indication: Injury or trauma; Fall; Blunt trauma (contusions or hematomas); Arm, lower; Left; Additional info: Foosh TECHNIQUE: Imaging protocol: Radiologic exam of the left forearm. Views: 2 views. COMPARISON: CR XR WRIST LT 2V 05/26/2020 5:26 PM FINDINGS: Bones/joints: No evidence of acute fracture or malalignment. Soft tissues: Unremarkable. IMPRESSION: No evidence of acute osseous abnormality in the left forearm.
--- NOTE | 2024-09-13 19:53 | XR_ITS ---
PROCEDURE INFORMATION: Exam: XR Left Hand Exam date and time: 09/13/2024 8:06 PM Age: 74 years old Clinical indication: Injury or trauma; Fall; Blunt trauma (contusions or hematomas); Arm, lower; Left; Additional info: Foosh TECHNIQUE: Imaging protocol: Radiologic exam of the left hand. Views: 3 or more views. COMPARISON: CR XR HAND LT MIN 3V 09/13/2024 8:06 PM FINDINGS: Bones/joints: No evidence of acute fracture or malalignment. Soft tissues: Unremarkable. IMPRESSION: No evidence of acute osseous abnormality in the left hand.
--- NOTE | 2024-09-13 19:53 | XR_ITS ---
PROCEDURE INFORMATION: Exam: XR Left Wrist Exam date and time: 09/13/2024 8:06 PM Age: 74 years old Clinical indication: Injury or trauma; Fall; Blunt trauma (contusions or hematomas); Arm, lower; Left; Additional info: Foosh TECHNIQUE: Imaging protocol: Radiologic exam of the left wrist. Views: 1 or 2 views. COMPARISON: CR XR WRIST LT 2V 05/26/2020 5:26 PM FINDINGS: Bones/joints: No evidence of acute fracture or malalignment. Carpal arcs are maintained. Soft tissues: Unremarkable. IMPRESSION: No evidence of acute osseous abnormality in the left wrist.
--- NOTE | 2024-09-13 19:53 | CT_ITS ---
PROCEDURE INFORMATION: Exam: CT Cervical Spine Without Contrast Exam date and time: 09/13/2024 8:21 PM Age: 74 years old Clinical indication: Injury or trauma; Fall; Blunt trauma; Additional info: Fall hit head neck pain +loc TECHNIQUE: Imaging protocol: Computed tomography of the cervical spine without contrast. Total images: 286 Radiation optimization: All CT scans at this facility use at least one of these dose optimization techniques: automated exposure control; mA and/or kV adjustment per patient size (includes targeted exams where dose is matched to clinical indication); or iterative reconstruction. COMPARISON: CT HEAD/BRAIN WO CON 09/13/2024 8:16 PM FINDINGS: Bones: Straightened cervical lordosis. Vertebral body height and alignment is maintained. The base of the dens and the C1 and C2 articulations are preserved with mild degenerative arthropathy. The cervicooccipital junction is intact. Facet joints are appropriately aligned with moderate multilevel hypertrophic degenerative spondylosis. Posterior elements are intact. Moderate degenerative disc disease C5-C6 and C6-C7. Mild degenerate disc disease remainder of the cervical levels. Small posterior projecting disc osteophyte complex at C3-C4, C5-C6, and C6-C7 resulting in bilateral neural foraminal encroachments and mild acquired spinal canal stenosis. No concerning bone lesions. Non closure posterior arch of C1 is a normal variant. Lungs: Lung apices are clear. Thyroid: 13 mm left thyroid nodule. Vasculature: Retropharyngeal course of the bilateral common carotid arteries is a normal variant. Minor calcifications of the carotid arteries. Soft tissues: No prevertebral soft tissue swelling. Unremarkable soft tissues of the neck. IMPRESSION: 1. No acute cervical fracture or traumatic subluxation. 2. Straightened cervical lordosis from position or muscle spasm. 3. Moderate multilevel degenerative disc disease of the set joint spondylosis 4. 13 mm left thyroid nodule. Consider follow-up nonemergent thyroid ultrasound. COMMENTS: Consistent with the [employer]'s Incidental Findings Committee white paper (J Am Lance Radiol 2015): In patients aged 35 years and older with an incidental thyroid nodule equal to or greater than 1.[address], MRI or extrathyroidal US, further evaluation with dedicated thyroid US is recommended for patients with normal life expectancy and without comorbidities. For smaller nodules without suspicious features, no further evaluation or follow up is recommended.
--- NOTE | 2024-09-13 19:53 | XR_ITS ---
PROCEDURE INFORMATION: Exam: XR Chest Exam date and time: 09/13/2024 8:06 PM Age: 74 years old Clinical indication: Shortness of breath; Additional info: SOA TECHNIQUE: Imaging protocol: Radiologic exam of the chest. Views: 1 view. COMPARISON: CR XR CHEST 2V 07/15/2023 10:54 AM FINDINGS: Lungs: No evidence of airspace infiltrate. No pulmonary edema. Pleural spaces: No visible pleural effusion. No pneumothorax. Heart/Mediastinum: Cardiomediastinal silouhette is unremarkable as visualized. Bones/joints: No evidence of acute osseous abnormality. IMPRESSION: No acute findings.
--- NOTE | 2024-09-13 19:53 | CT_ITS ---
PROCEDURE INFORMATION: Exam: CT Head Without Contrast Exam date and time: 09/13/2024 8:16 PM Age: 74 years old Clinical indication: Injury or trauma; Fall; Blunt trauma (contusions or hematomas); Additional info: Fall hit head +loc TECHNIQUE: Imaging protocol: Computed tomography of the head without contrast. Total images: 573 Radiation optimization: All CT scans at this facility use at least one of these dose optimization techniques: automated exposure control; mA and/or kV adjustment per patient size (includes targeted exams where dose is matched to clinical indication); or iterative reconstruction. COMPARISON: FACEW CT facial bones w con 10/18/2018 10:32 AM FINDINGS: Brain: No acute intracranial hemorrhage, midline shift, or mass. Mild cortical and cerebellar atrophy. Mild remote white matter small-vessel ischemic changes. Remote lacunar infarcts bilateral basal ganglia. No acute territorial infarct. Basilar cisterns are preserved. Cerebral ventricles: No ventriculomegaly. Paranasal sinuses: Mucosal thickening with air-fluid level left maxillary sinus. Partial opacification bilateral ethmoid air cells. Trace air-fluid level left sphenoid sinus. Mastoid air cells: Visualized mastoid air cells are well aerated. Orbital cavities: Bilateral orbital lens replacement. Bones: Osteopenia. No skull fracture. Soft tissues: Unremarkable. Vasculature: Moderate calcifications bilateral intracranial internal carotid arteries. IMPRESSION: 1. No acute intracranial process. 2. Chronic intracranial findings. 3. Acute paranasal sinusitis with air-fluid levels.
--- NOTE | 2024-09-13 19:55 | ED_ITS ---
Discharge Plan Disposition Patient Disposition: Home, Self-Care Condition: Good Prescriptions Prescriptions: New ondansetron 4 mg tablet,disintegrating 4 mg PO DAILY 3 Days Qty: 3 0RF guaifenesin 200 mg tablet 200 mg PO TID Qty: 90 0RF No Action methotrexate sodium 25 mg/mL solution SQ WEEKLY Patient Comments: ADMINISTER 1 ML UNDER THE SKIN 1 TIME A WEEK DIRECTED celecoxib 100 mg capsule 100 mg PO DAILY atorvastatin 20 mg tablet 20 mg PO DAILY Qty: 30 3RF cholecalciferol (vitamin D3) 25 mcg (1,000 unit) tablet See Rx Instructions .ROUTE .COMPLEX Qty: 90 0RF Dose Instruction: FOR SUPPLEMENT: TAKE 1 TABLET BY MOUTH EVERY DAY FOR SUPPLEMENT ADMINISTER WITH MEAL Rx Instructions: FOR SUPPLEMENT: TAKE 1 TABLET BY MOUTH EVERY DAY FOR SUPPLEMENT ADMINISTER WITH MEAL lisinopril 20 mg tablet 20 mg PO DAILY Patient Comments: TAKE 1 TABLET BY MOUTH DAILY folic acid 1 mg tablet 3 mg PO DAILY Patient Comments: TAKE 3 TABLETS BY MOUTH DAILY ergocalciferol (vitamin D2) 1,250 mcg (50,000 unit) capsule 1,250 mcg PO WEEKLY Patient Comments: TAKE 1 CAPSULE BY MOUTH WEEKLY FOR SUPPLEMENT duloxetine 60 mg capsule,delayed release(DR/EC) 1 mg PO DAILY Patient Comments: TAKE 1 CAPSULE BY MOUTH DAILY. pregabalin 225 mg capsule 225 mg PO DAILY Januvia 100 mg tablet 100 mg PO DAILY Patient Comments: TAKE 1 TABLET BY MOUTH EVERY DAY Ozempic 1 mg/dose (4 mg/3 mL) pen injector 1 mg SQ WEEKLY Referrals Follow up/Referrals: Joseph Castro MD [Primary Care Provider] - See instructions Activity Restrictions/Add. Instructions Additional Instructions/Restrictions: Today your evaluated in the emergency department diagnosed with influenza A and a thyroid nodule. You most likely have a concussion from your fall. Please rest. Please increase your fluid intake. It is important that you follow-up with your PCP Monday. Please return to the ED for any worsening of your condition Clinical Impressions Clinical Impression: Influenza A, Thyroid nodule Concussion Qualifiers: Encounter type: initial encounter Loss of consciousness presence/duration: with LOC of unspecified duration Qualified Code(s): S06.0X9A - Concussion with loss of consciousness of unspecified duration, initial encounter Fall Qualifiers: Encounter type: initial encounter Qualified Code(s): W19.XXXA - Unspecified fall, initial encounter Instructions Patient Instructions: DI for Acute Bronchitis Print Language Print Language: [place]serratian Discharge ED Provider: Mahad Mcadams [facility] Adult HPI <Caty Gill APRN - Last Filed: 09/13/24 21:22> General Chief complaint: Upper Respiratory Infection Stated complaint: cough, chills, body aches, SOA Time Seen by Provider: 09/13/24 19:40 Mode of Arrival: Ambulatory Source of Information: Patient and Relative Limitations: No Limitations Description of Symptoms (Recalled from ER Triage Doc. by RN): Pt arrives with c/o chills, bodyaches, dry cough, congestion x 5 days. History of Present Illness HPI narrative: patient is a 74-year-old female PMHx RA, type 2 diabetes, hypertension, depression, diverticulitis, hypokalemia, obesity who presents to the ED for cough, congestion, fatigue x 5 days. Patient also adds that 3 days ago she was sitting on the toilet having a bowel movement when she leaned forward, having a syncopal episode where she totally lost consciousness and hit her head on the wall, attempted to catch herself injuring her left hand and left forearm Related Data Home Medications ?Medication ?Instructions ?Recorded ?Confirmed duloxetine 60 mg capsule,delayed 1 mg PO DAILY 04/01/24 06/28/24 release ergocalciferol (vitamin D2) 1,250 1,250 mcg PO WEEKLY 04/01/24 06/28/24 mcg (50,000 unit) capsule folic acid 1 mg tablet 3 mg PO DAILY 04/01/24 06/28/24 lisinopril 20 mg tablet 20 mg PO DAILY 04/01/24 06/28/24 pregabalin 225 mg capsule 225 mg PO DAILY 04/01/24 06/28/24 semaglutide 1 mg/dose (4 mg/3 mL) 1 mg SQ WEEKLY 04/01/24 06/28/24 subcutaneous pen injector (Ozempic) sitagliptin phosphate 100 mg 100 mg PO DAILY 04/01/24 06/28/24 tablet (Januvia) celecoxib 100 mg capsule 100 mg PO DAILY 06/28/24 06/28/24 methotrexate sodium 25 mg/mL mg SQ WEEKLY 06/28/24 06/28/24 injection solution Previous Rx's ?Medication ?Instructions ?Recorded cholecalciferol (vitamin D3) 25 See Rx Instructions .Route 04/15/24 mcg (1,000 unit) tablet .COMPLEX #90 tabs atorvastatin 20 mg tablet 20 mg PO DAILY #30 tabs 06/28/24 guaifenesin 200 mg tablet 200 mg PO TID #90 tabs 09/13/24 ondansetron 4 mg disintegrating 4 mg PO DAILY 3 days #3 tabs 09/13/24 tablet Allergies Allergy/AdvReac Type Severity Reaction Status Date / Time No Known Allergies Allergy Verified 06/28/24 08:55 [facility] <Caty Gill APRN - Last Filed: 09/13/24 21:22> [facility] Disclaimer: The information contained in this section may have been updated after the patient was seen, as this information can be updated by other users. 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 (Updated 09/13/24 @ 21:18 by Caty Gill APRN) Colon cancer screening Rheumatoid arthritis Diabetes mellitus, type 2 History of gastroesophageal reflux (GERD) History of hypertension History of diabetes mellitus Vitamin D deficiency (~06/25/18) Hyperlipidemia (~01/10/18) Surgical History History of laparoscopic cholecystectomy Family History Other Cancer Social History Smoking Status: Never smoker alcohol intake: never substance use type: denies use current occupational status: retired Travel in the last 8 weeks: None household members: spouse and family housing: house caffeine: Yes Have you lived/traveled outside [place] in past 30 days?: No Contact w/someone who lives/traveled outside [place] past 30 days?: No Exposure to someone with infectious disease in past 14 days?: No Do you have a fever (greater than 100.4 F or 38 C)?: No Have you tested positive for COVID-19: No Exposed to someone with COVID-19 in past 14 days?: No Do you have a sore throat?: No Do you have a cough?: Yes Do you have any weakness?: No Do you have any diarrhea?: No Are you experiencing any unusual bleeding?: No Do you have any muscle aches/pain?: Yes Do you have any abdominal pain?: No Are you experiencing loss of taste or smell?: No Other 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 Have you received the Flu Vaccine for this season: No Have you received the Pneumonia Vaccine: No <Caty Gill APRN - Last Filed: 09/13/24 21:22> ROS Obtained: Yes Systems reviewed as appropriate & no additional complaints except as documented Physical Exam <Caty Gill APRN - Last Filed: 09/13/24 21:22> General General appearance: alert and in no apparent distress Head Head exam: atraumatic and normocephalic Eye Eye exam: Present normal appearance and PERRL ENT ENT exam: Present normal exam Neck Neck exam: Present normal inspection and tenderness Chest Chest inspection: Present normal inspection and symmetric chest wall rise; Absent tenderness Respiratory Respiratory exam: Present normal lung sounds bilaterally and other (cough) Cardiovascular Cardiovascular exam: Present regular rate Abdominal Exam Abdominal exam: Present soft and normal bowel sounds; Absent tenderness Extremities Exam Extremities exam: Present normal inspection and full ROM Back Exam Back exam: Present normal inspection and full ROM Neurological Exam Neurological exam: Present alert and oriented X3 Psychiatric Psychiatric exam: Present normal affect and normal mood Skin Skin exam: Present warm, dry and other (Ecchymosis of the left palmar aspect and left forearm) Medical Decision Making <Caty Gill APRN - Last Filed: 09/13/24 21:22> Medical Records Screening: Per USPSTF and CDC recommendations, given the prevalence of disease in our region, it is our hospital?s policy to screen for HIV and viral Hepatitis for all patients aged 18 and over and those with ongoing risk factors. Abelardo Inquiry Pt receiving controlled substance: No Abelardo was queried for this patient: No Vital Signs: 09/13/24 19:22 09/13/24 19:26 09/13/24 21:32 Temperature 98.2 F 98.5 F Temperature Source Oral Oral Pulse Rate 78 78 Pulse Rate [Right] 83 Respiratory Rate 18 16 18 Blood Pressure 156/90 H 128/67 Blood Pressure [Right Arm] 117/93 H Blood Pressure Mean [Right Arm] 101 Blood Pressure Source Automatic Cuff Blood Pressure Source [Right Arm] Automatic Cuff Blood Pressure Position Supine Sitting Blood Pressure Position [Right Arm] Sitting 02 Sat by Pulse Oximetry 98 92 L Oxygen Delivery Method Room Air Room Air Room Air Lab Data Lab Results 09/13/24 19:27: SARS-CoV-2 (PCR) Not detected, Influenza A Untype (PCR) Detected A, Influenza Type B (PCR) Not detected Orders (Tests/Meds): ED MEDICATIONS Discontinued Medications Generic Name Dose Route Start Last Admin Trade Name Tobias PRN Reason Stop Dose Admin Acetaminophen 500 mg 09/13/24 19:55 09/13/24 20:10 Acetaminophen 500mg Tab PO 09/13/24 19:56 500 mg ONCE ONE Administration Albuterol/Ipratropium 3 ml 09/13/24 20:39 09/13/24 20:53 Ipratropium/Albuterol 3 Ml Neb IH 09/13/24 20:40 3 ml ONCE ONE Administration Ondansetron HCl 4 mg 09/13/24 19:55 09/13/24 20:10 Ondansetron 4mg Odt SL 09/13/24 19:56 4 mg ONCE ONE Administration ORDERS Category Date Time Status CT cervical spine wo con Stat Cat Scan 09/13/24 19:[address] head/brain wo con Stat Cat Scan 09/13/24 19:53 Completed CXR --portable [XR chest portable] Stat Exams 09/13/24 19:53 Completed Forearm XR left 2 views [XR forearm LT 2V] Stat Exams 09/13/24 19:53 Completed Hand XR left minimum 3 views [XR hand LT min 3V] Stat Exams 09/13/24 19:53 Completed Wrist XR left 2 views [XR wrist LT 2V] Stat Exams 09/13/24 19:53 Completed Rapid PCR Covid and Flu A/B Stat Lab 09/13/24 19:27 Completed Medical Decision Narrative: In summary, patient is a 74-year-old female PMHx RA, type 2 diabetes, hypertension, depression, diverticulitis, hypokalemia, obesity who presents to the ED for cough, congestion, fatigue x 5 days. Patient also adds that 3 days ago she was sitting on the toilet having a bowel movement when she leaned forward, having a syncopal episode where she totally lost consciousness and hit her head on the wall, attempted to catch herself injuring her left hand and left forearm. Patient states since the fall she has felt foggy . Upon initial exam, patient is alert, oriented and cooperative. Patient is hemodynamically stable. Physical exam remarkable for bruising on the left palmar aspect and bruising on the left forearm. Patient neuroexam intact, has cervical spine tenderness upon exam. Differential diagnosis includes ICH, fracture, cervical spine fracture, influenza, other infectious process Initial workup will be conducted with respiratory swab and imaging. Initial inventions include Tylenol and Zofran. Initial workup reviewed by me. Hematologic labs remarkable for Final reads as follows: No acute fracture left wrist. No osseous abnormality of the left hand. No evidence of acute fracture on left forearm x-ray. No acute findings within the chest x-ray. CT of the neck unremarkable for any cervical fracture or traumatic subluxation, straightening cervical lordosis from positioning or muscle spasm. 13 mm left thyroid nodule. CT of the head unremarkable for any acute intracranial process. Discussed with patient that she is influenza A positive. She has had symptoms for too many days to start antivirals at this time. Advised that she may benefit from a Lidoderm patch over the cervical spine area due to possible muscle spasm. Discussed that CT found a left thyroid nodule that will need further evaluation by PCP. Discussed to increase fluid intake, rest. Advised that she most likely has a concussion. Discussed concussion care. She was hemodynamically stable and ambulatory from the ED upon discharge. <Mahad Mcadams MD - Last Filed: 09/13/24 23:58> Vital Signs: 09/13/24 19:22 09/13/24 19:26 09/13/24 21:32 Temperature 98.2 F 98.5 F Temperature Source Oral Oral Pulse Rate 78 78 Pulse Rate [Right] 83 Respiratory Rate 18 16 18 Blood Pressure 156/90 H 128/67 Blood Pressure [Right Arm] 117/93 H Blood Pressure Mean [Right Arm] 101 Blood Pressure Source Automatic Cuff Blood Pressure Source [Right Arm] Automatic Cuff Blood Pressure Position Supine Sitting Blood Pressure Position [Right Arm] Sitting 02 Sat by Pulse Oximetry 98 92 L Oxygen Delivery Method Room Air Room Air Room Air Lab Data Lab Results 09/13/24 19:27: SARS-CoV-2 (PCR) Not detected, Influenza A Untype (PCR) Detected A, Influenza Type B (PCR) Not detected Orders (Tests/Meds): ED MEDICATIONS Discontinued Medications Generic Name Dose Route Start Last Admin Trade Name Freq PRN Reason Stop Dose Admin Acetaminophen 500 mg 09/13/24 19:55 09/13/24 20:10 Acetaminophen 500mg Tab PO 09/13/24 19:56 500 mg ONCE ONE Administration Albuterol/Ipratropium 3 ml 09/13/24 20:39 09/13/24 20:53 Ipratropium/Albuterol 3 Ml Neb IH 09/13/24 20:40 3 ml ONCE ONE Administration Ondansetron HCl 4 mg 09/13/24 19:55 09/13/24 20:10 Ondansetron 4mg Odt SL 09/13/24 19:56 4 mg ONCE ONE Administration ORDERS Category Date Time Status CT cervical spine wo con Stat Cat Scan 09/13/24 19:[address] head/brain wo con Stat Cat Scan 09/13/24 19:53 Completed CXR --portable [XR chest portable] Stat Exams 09/13/24 19:53 Completed Forearm XR left 2 views [XR forearm LT 2V] Stat Exams 09/13/24 19:53 Completed Hand XR left minimum 3 views [XR hand LT min 3V] Stat Exams 09/13/24 19:53 Completed Wrist XR left 2 views [XR wrist LT 2V] Stat Exams 09/13/24 19:53 Completed Rapid PCR Covid and Flu A/B Stat Lab 09/13/24 19:27 Completed Medical Decision Narrative: In summary, patient is a 74-year-old female PMHx RA, type 2 diabetes, hypertension, depression, diverticulitis, hypokalemia, obesity who presents to the ED for cough, congestion, fatigue x 5 days. Patient also adds that 3 days ago she was sitting on the toilet having a bowel movement when she leaned forward, having a syncopal episode where she totally lost consciousness and hit her head on the wall, attempted to catch herself injuring her left hand and left forearm. Patient states since the fall she has felt foggy . Upon initial exam, patient is alert, oriented and cooperative. Patient is hemodynamically stable. Physical exam remarkable for bruising on the left palmar aspect and bruising on the left forearm. Patient neuroexam intact, has cervical spine tenderness upon exam. Differential diagnosis includes ICH, fracture, cervical spine fracture, infl uenza, other infectious process Initial workup will be conducted with respiratory swab and imaging. Initial inventions include Tylenol and Zofran. Initial workup reviewed by me. Hematologic labs remarkable for Final reads as follows: No acute fracture left wrist. No osseous abnormality of the left hand. No evidence of acute fracture on left forearm x-ray. No acute findings within the chest x-ray. CT of the neck unremarkable for any cervical fracture or traumatic subluxation, straightening cervical lordosis from positioning or muscle spasm. 13 mm left thyroid nodule. CT of the head u nremarkable for any acute intracranial process. Discussed with patient that she is influenza A positive. She has had symptoms for too many days to start antivirals at this time. Advised that she may benefit from a Lidoderm patch over the cervical spine area due to possible muscle spasm. Discussed that CT found a left thyroid nodule that will need further evaluation by PCP. Discussed to increase fluid intake, rest. Advised that she most likely has a concussion. Discussed concussion care. She was hemodynamically stable and ambulatory from the ED upon discharge. I was consulted by the BRYSON, and we discussed the complexity of the problems being addressed. I approved the treatment and management plan for this patient's care in the Emergency Department, thus performing a substantive portion of the medical decision making. Mahad Mcadams MD Critical Care <Caty Gill, BOX GL[employer]ER - Last Filed: 09/13/24 21:22> Critical Care Time Critical Care Time: No
--- NOTE | 2024-09-13 19:55 | PC.NURSE ---
report given to Gracie Rueda RN
[2024-09-13 20:05] LABS: Influenza A, PCR Detected (NotDetected)
[2024-09-13] MEDS: ONDANSETRON 4MG ODT 4 MG SL (20:10)
[2024-09-13] MEDS: ACETAMINOPHEN 500MG TAB 500 MG PO (20:10)
[2024-09-13] MEDS: IPRATROPIUM/ALBUTEROL 3 ML NEB IH (20:53)
[2024-09-13 21:32] VITALS: BP 128/67; PULSE 78; RESP 18; TEMP 36.9; O2SAT 99
== END 2024-09-13 21:33 | disposition home or self-care (01) ==
PROVIDERS: Emergency Provider Emergency Medicine; PCP Family Medicine
DX: S06.0X9A Concussion with loss of consciousness of unspecified duration, initial encounter (principal); E04.1 Nontoxic single thyroid nodule; J10.1 Influenza due to other identified influenza virus with other respiratory manifestations; R05.9 Cough, unspecified; R09.81 Nasal congestion; R53.83 Other fatigue; R55 Syncope and collapse; M79.10 Myalgia, unspecified site; R68.83 Chills (without fever); W18.12XA Fall from or off toilet with subsequent striking against object, initial encounter; Y93.89 Activity, other specified; Y92.002 Bathroom of unspecified non-institutional (private) residence as the place of occurrence of the external cause
CPT/HCPCS: 70450; 71045; 72125; 73090; 73100; 73130; 87636; 99284; J7620; Q0162

== ENCOUNTER 2024-09-23 16:01 | Emergency (ER) | payer MEDICARE, SELFPAY ==
[2024-09-23 16:48] VITALS: BP 110/89; PULSE 110; RESP 18; TEMP 36.7; O2SAT 96; BMI 31.9
--- NOTE | 2024-09-23 16:51 | XR_ITS ---
PROCEDURE INFORMATION: Exam: XR Chest Exam date and time: 09/23/2024 5:27 PM Age: 74 years old Clinical indication: Other: Recent flu dx worsening cough and congestion TECHNIQUE: Imaging protocol: Radiologic exam of the chest. Views: 2 views. COMPARISON: CR XR CHEST PORTABLE 09/13/2024 8:06 PM FINDINGS: Lungs: Left lower lobe calcified nodule unchanged from prior exam. Central opacities with peribronchial cuffing, seen to advantage on the lateral chest radiograph. Pleural spaces: Unremarkable. No pleural effusion. No pneumothorax. Heart/Mediastinum: Unremarkable. No cardiomegaly. Bones/joints: Unremarkable. IMPRESSION: Combination of findings that suggests viral process versus reactive airways without evidence of consolidation.
[2024-09-23 18:21] VITALS: BP 133/87; PULSE 99; RESP 18; TEMP 37.2; O2SAT 97
[2024-09-23 18:35] VITALS: BP 143/100; PULSE 111; O2SAT 91
[2024-09-23 19:00] VITALS: BP 134/86; PULSE 87; O2SAT 96
--- NOTE | 2024-09-23 19:07 | ED_ITS ---
<Statement entered by Apolonia Gomez DO - 09/23/24 23:16> I was consulted by the BRYSON, and we discussed the complexity of the problems being addressed. I approved the treatment and management plan for this patient's care in the emergency department, thus performing a substantive portion of the medical decision making. Apolonia Gomez DO Discharge Plan Disposition Patient Disposition: Home, Self-Care Condition: Good Prescriptions Prescriptions: New doxycycline hyclate 100 mg capsule 100 mg PO BID 10 Days Qty: 20 0RF prednisone 50 mg tablet 50 mg PO DAILY 5 Days Qty: 5 0RF albuterol sulfate 90 mcg/actuation HFA aerosol inhaler 1 inh inhalation Q4H PRN (Reason: shortness of breath or wheezing) Qty: 8.5 0RF letubxnjpzbmgkw-hlknghfez-LX [Bromfed DM] 2-30-10 mg/5 mL syrup 5 ml PO Q4H PRN (Reason: sinus symptoms) Qty: 118 0RF No Action methotrexate sodium 25 mg/mL solution SQ WEEKLY Patient Comments: ADMINISTER 1 ML UNDER THE SKIN 1 TIME A WEEK DIRECTED celecoxib 100 mg capsule 100 mg PO DAILY atorvastatin 20 mg tablet 20 mg PO DAILY Qty: 30 3RF cholecalciferol (vitamin D3) 25 mcg (1,000 unit) tablet See Rx Instructions .ROUTE .COMPLEX Qty: 90 0RF Dose Instruction: FOR SUPPLEMENT: TAKE 1 TABLET BY MOUTH EVERY DAY FOR SUPPLEMENT ADMINISTER WITH MEAL Rx Instructions: FOR SUPPLEMENT: TAKE 1 TABLET BY MOUTH EVERY DAY FOR SUPPLEMENT ADMINISTER WITH MEAL lisinopril 20 mg tablet 20 mg PO DAILY Patient Comments: TAKE 1 TABLET BY MOUTH DAILY folic acid 1 mg tablet 3 mg PO DAILY Patient Comments: TAKE 3 TABLETS BY MOUTH DAILY ergocalciferol (vitamin D2) 1,250 mcg (50,000 unit) capsule 1,250 mcg PO WEEKLY Patient Comments: TAKE 1 CAPSULE BY MOUTH WEEKLY FOR SUPPLEMENT duloxetine 60 mg capsule,delayed release(DR/EC) 1 mg PO DAILY Patient Comments: TAKE 1 CAPSULE BY MOUTH DAILY. pregabalin 225 mg capsule 225 mg PO DAILY Januvia 100 mg tablet 100 mg PO DAILY Patient Comments: TAKE 1 TABLET BY MOUTH EVERY DAY Ozempic 1 mg/dose (4 mg/3 mL) pen injector 1 mg SQ WEEKLY ondansetron 4 mg tablet,disintegrating 4 mg PO DAILY 3 Days Qty: 3 0RF guaifenesin 200 mg tablet 200 mg PO TID Qty: 90 0RF Referrals Follow up/Referrals: Joseph Castro MD [Primary Care Provider] - See instructions Activity Restrictions/Add. Instructions Additional Instructions/Restrictions: Have sent medication into your pharmacy. Please take your antibiotic till it is gone. Please follow-up with your PCP within 48 hours for recheck. If you have any new or worsening signs or symptoms follow-up with your PCP sooner or return to the ER as needed. Clinical Impressions Clinical Impression: Influenza A, Acute lower respiratory tract infection, Bilateral wheezing Print Language Print Language: Malian Discharge ED Provider: Apolonia Gomez General Adult HPI General Chief complaint: Upper Respiratory Infection Stated complaint: chest nikolai, cough, weak Time Seen by Provider: 09/23/24 19:07 Mode of Arrival: Ambulatory Source of Information: Patient Description of Symptoms (Recalled from ER Triage Doc. by RN): Pt was seen at [facility] on 09-13-24 was diagnosed with a concussion and flu A. Pt states she has had a worsening cough and continued congestion that seems worse. History of Present Illness HPI narrative: Patient presents for cough congestion after being diagnosed with the flu on 09/13/2024. Patient reports that she is had a nonproductive cough that is pervasive. She denies chest pain fever chills hemoptysis hematochezia melena nausea vomit diarrhea. Related Data Home Medications ?Medication ?Instructions ?Recorded ?Confirmed duloxetine 60 mg capsule,delayed 1 mg PO DAILY 04/01/24 06/28/24 release ergocalciferol (vitamin D2) 1,250 1,250 mcg PO WEEKLY 04/01/24 06/28/24 mcg (50,000 unit) capsule folic acid 1 mg tablet 3 mg PO DAILY 04/01/24 06/28/24 lisinopril 20 mg tablet 20 mg PO DAILY 04/01/24 06/28/24 pregabalin 225 mg capsule 225 mg PO DAILY 04/01/24 06/28/24 semaglutide 1 mg/dose (4 mg/3 mL) 1 mg SQ WEEKLY 04/01/24 06/28/24 subcutaneous pen injector (Ozempic) sitagliptin phosphate 100 mg 100 mg PO DAILY 04/01/24 06/28/24 tablet (Januvia) celecoxib 100 mg capsule 100 mg PO DAILY 06/28/24 06/28/24 methotrexate sodium 25 mg/mL mg SQ WEEKLY 06/28/24 06/28/24 injection solution Previous Rx's ?Medication ?Instructions ?Recorded cholecalciferol (vitamin D3) 25 See Rx Instructions .Route 04/15/24 mcg (1,000 unit) tablet .COMPLEX #90 tabs atorvastatin 20 mg tablet 20 mg PO DAILY #30 tabs 06/28/24 guaifenesin 200 mg tablet 200 mg PO TID #90 tabs 09/13/24 ondansetron 4 mg disintegrating 4 mg PO DAILY 3 days #3 tabs 09/13/24 tablet albuterol sulfate 90 mcg/actuation 1 inh inhalation Q4H PRN shortness 09/23/24 aerosol inhaler of breath or wheezing #8.5 grams tlnanrikkznguio-atyoahprkldrsow-MP 5 ml PO Q4H PRN sinus symptoms 09/23/24 2 mg-30 mg-10 mg/5 mL oral syrup #118 mL (Bromfed DM) doxycycline hyclate 100 mg capsule 100 mg PO BID 10 days #20 caps 09/23/24 prednisone 50 mg tablet 50 mg PO DAILY 5 days #5 tabs 09/23/24 Allergies Allergy/AdvReac Type Severity Reaction Status Date / Time No Known Allergies Allergy Verified 09/23/24 18:23 [facility] Disclaimer: The information contained in this section may have been updated after the patient was seen, as this information can be updated by other users. 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 (Updated 09/23/24 @ 22:51 by VIRIDIANA Liu) Colon cancer screening Rheumatoid arthritis Diabetes mellitus, type 2 History of gastroesophageal reflux (GERD) History of hypertension History of diabetes mellitus Vitamin D deficiency (~06/25/18) Hyperlipidemia (~01/10/18) Surgical History History of laparoscopic cholecystectomy Family History Other Cancer Social History Smoking Status: Never smoker alcohol intake: never substance use type: denies use current occupational status: retired Travel in the last 8 weeks: None household members: spouse and family housing: house caffeine: Yes Have you lived/traveled outside US in past 30 days?: No Contact w/someone who lives/traveled outside US past 30 days?: No Exposure to someone with infectious disease in past 14 days?: No Do you have a fever (greater than 100.4 F or 38 C)?: No Have you tested positive for COVID-19: No Exposed to someone with COVID-19 in past 14 days?: No Do you have a sore throat?: No Do you have a cough?: Yes Do you have any weakness?: Yes Do you have any diarrhea?: No Are you experiencing any unusual bleeding?: No Do you have any muscle aches/pain?: No Do you have any abdominal pain?: No Are you experiencing loss of taste or smell?: No Other 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 Have you received the Flu Vaccine for this season: No Have you received the Pneumonia Vaccine: No ROS Obtained: Yes Systems reviewed as appropriate & no additional complaints except as documented Physical Exam General General appearance: alert Respiratory Respiratory exam: Present wheezes; Absent normal lung sounds bilaterally, respiratory distress or accessory muscle use Cardiovascular Cardiovascular exam: Present regular rate Neurological Exam Neurological exam: Present alert and oriented X3 Medical Decision Making Medical Records Medical records reviewed: Yes I reviewed the patient's medical records. Screening: Per USPSTF and CDC recommendations, given the prevalence of disease in our region, it is our hospital?s policy to screen for HIV and viral Hepatitis for all patients aged 18 and over and those with ongoing risk factors. Abelardo Inquiry Pt receiving controlled substance: No Vital Signs: 09/23/24 16:48 09/23/24 18:21 09/23/24 18:35 Temperature 98.1 F 99.0 F Temperature Source Oral Oral Pulse Rate 99 H 111 H Pulse Rate [Right] 110 H Respiratory Rate 18 18 Blood Pressure 133/87 143/100 H Blood Pressure [Right Arm] 110/89 Blood Pressure Mean [Right Arm] 96 Blood Pressure Source [Right Arm] Automatic Cuff Blood Pressure Position Sitting Blood Pressure Position [Right Arm] Sitting 02 Sat by Pulse Oximetry 96 97 91 L Oxygen Delivery Method Room Air Room Air Room Air 09/23/24 19:00 09/23/24 19:30 09/23/24 21:49 Temperature 98.1 F Temperature Source Pulse Rate 87 94 H 99 H Pulse Rate [Right] Respiratory Rate 16 Blood Pressure 134/86 133/91 H 101/72 L Blood Pressure [Right Arm] Blood Pressure Mean [Right Arm] Blood Pressure Source [Right Arm] Blood Pressure Position Sitting Blood Pressure Position [Right Arm] 02 Sat by Pulse Oximetry 96 95 Oxygen Delivery Method Room Air Lab Data Lab results reviewed: Yes I reviewed the patient's lab results. Lab Results 09/23/24 20:01: WBC 11.9 H, RBC 3.90 L, Hgb 12.3, Hct 35.3 L, MCV 90.5, MCH 31.5 H, MCHC 34.8, RDW 13.7, Plt Count 451 H, MPV 10.3, Neut % (Auto) 64.8, Lymph % (Auto) 22.1, [place] % (Auto) 11.2 H, Eos % (Auto) 0.8, Baso % (Auto) 0.5, Neut # (Auto) 7.7, Lymph # (Auto) 2.6, [place] # (Auto) 1.3 H, Eos # (Auto) 0.1, Baso # (Auto) 0.1, Sodium 137, Potassium 3.5, Chloride 104, Carbon Dioxide 29, Anion Gap 7.5, BUN 11, Creatinine 0.80, Estimated Creat Clear 61, Estimated GFR 70, Est GFR ( Amer) 85, Glucose 89, Calcium 10.4 H, Total Bilirubin 0.4, AST 34, ALT 34, Alkaline Phosphatase 71, Total Protein 7.9, Albumin 4.4, Globulin 3.5 H, Albumin/Globulin Ratio 1.3 09/23/24 20:01 09/23/24 20:01 Orders (Tests/Meds): ED MEDICATIONS Discontinued Medications Generic Name Dose Route Start Last Admin Trade Name Tobias PRN Reason Stop Dose Admin Acetaminophen 1,000 mg 09/23/24 19:41 09/23/24 19:46 Acetaminophen 500mg Tab PO 09/23/24 19:42 1,000 mg ONCE ONE Administration Albuterol/Ipratropium 6 ml 09/23/24 19:41 09/23/24 19:46 Ipratropium/Albuterol 3 Ml Neb IH 09/23/24 19:42 6 ml ONCE ONE Administration Dexamethasone Sodium Phosphate 10 mg 09/23/24 19:41 09/23/24 19:45 Dexamethasone 4mg/Ml 5ml Mdv IV 09/23/24 19:42 10 mg ONCE ONE Administration ORDERS Category Date Time Status Chest XR 2 view (NOT portable) [XR chest 2V] Stat Exams 09/23/24 16:51 Completed CBC w/Auto Diff [Complete Blood Count Auto Diff] Stat Lab 09/23/24 20:01 Completed CMP [Comprehensive Metabolic Panel] Stat Lab 09/23/24 20:01 Completed Medical Decision Narrative: In summary patient is a 74-year-old female who presents to the emergency department for evaluation of post influenza cough congestion. Patient is initially normotensive 110/89 with a heart rate of 110 sinus tachycardia on the bedside monitor breathing 18 times a minute satting at 98% on room air upon arrival, afebrile at 90.1. Physical exam is asked remarkable for end expiratory wheezes in all 4 trevino however breath sounds heard to bases there is no increased work of breathing or accessory muscle use.. Differential diagnosis includes asthma exacerbation versus post influenza pneumonia versus bronchitis etc. Initial workup will be conducted with hematologic labs respiratory panel full plain film chest x-ray. Initial interventions include Tylenol Toradol Decadron DuoNeb. Initial workup reviewed by me and her white count is 11.9 but absolute neutrophil count of 7.7, CMP is significant only for calcium of 10.4 and remainder of her hematologic labs are nonactionable. My informal interpretation of her plain film chest x-ray shows some groundglass opacities and possibly some right lower lobe consolidation. Upon repeat evaluation patient actually reports feeling significantly better and her wheezing has resolved after initial intervention. Given this patient is appropriate discharge with prescription for Bromfed albuterol metered-dose inhaler steroid taper and a prescription for doxycycline for atypical coverage. Patient to follow-up with PCP for any new or worsening signs or symptoms or return to the ER as needed. Critical Care Critical Care Time Critical Care Time: Yes Attestation: On 09/23/24, the high probability of a clinically significant, sudden or life threatening deterioration of the following system(s) required my full and direct attention, intervention and personal management. The time I documented below is in addition to time spent performing reported procedures but includes the following listed in this critical care notation. Total Time Total Critical Care Time: 35
[2024-09-23 19:30] VITALS: BP 133/91; PULSE 94; O2SAT 95
[2024-09-23] MEDS: DEXAMETHASONE 4MG/ML 5ML MDV 10 MG IV (19:45)
[2024-09-23] MEDS: IPRATROPIUM/ALBUTEROL 3 ML NEB 6 ML IH (19:46)
[2024-09-23] MEDS: ACETAMINOPHEN 500MG TAB 1000 MG PO (19:46)
[2024-09-23 20:12] LABS: Albumin Level 4.4 g/dl (3.5-5.0); Chloride 104 mmol/L (98-107); Sodium 137 mmol/L (136-145)
[2024-09-23 20:13] LABS: Potassium 3.5 mmoL/L (3.5-5.1)
[2024-09-23 20:15] LABS: Alanine Aminotransferase 34 U/L (12-78); Albumin/Globulin Ratio 1.3 (1.1-1.8); Alkaline Phosphatase 71 U/L (38-126); Anion Gap 7.5 mEq/L (5-15); Aspartate Amino Transferase 34 U/L (14-36); Bilirubin,Total 0.4 mg/dl (0.2-1.3); Blood Urea Nitrogen 11 mg/dl (7-17); Carbon Dioxide 29 mmol/L (22.0-30.0); Creatinine Clearance Estimated 61 mL/min (50-200); Estimated Glomerular Filt Rate 70 ml/min (>60); GFR (African American) 85 ML/MIN (>60); Globulin 3.5 g/dL (1.3-3.2); Total Protein,Serum 7.9 g/dl (6.3-8.2)
[2024-09-23 20:16] LABS: Calcium 10.4 mg/dl (8.4-10.2); Glucose 89 mg/dl (74-100)
[2024-09-23 20:21] LABS: Basophils # 0.1 K/mm3 (0-0.2); Basophils % 0.5 % (0.1-2.0); Eosinophils # 0.1 K/mm3 (0.0-0.4); Eosinophils % 0.8 % (0.1-12.0); Hematocrit 35.3 % (37.0-47.0); Hemoglobin 12.3 g/dL (12.2-16.2); Lymphocytes # 2.6 K/mm3 (0.7-4.5); Lymphocytes % 22.1 % (10-50); Mean Corpuscular HGB Conc 34.8 g/dL (31.8-35.4); Mean Corpuscular Hemoglobin 31.5 pg (27.0-31.2); Mean Corpuscular Volume 90.5 fl (81-99); Mean Platelet Volume 10.3 fl (7.4-10.4); Monocytes # 1.3 K/mm3 (0.1-1.0); Monocytes % 11.2 % (1.7-9.3); Neutrophils # 7.7 K/mm3 (1.8-7.8); Neutrophils % 64.8 % (37.0-80.0); Platelet Count 451 K/mm3 (142-424); Red Cell Distribution Width 13.7 % (11.5-17.5); White Blood Count 11.9 K/mm3 (4.8-10.8)
--- NOTE | 2024-09-23 20:41 | PC.NURSE ---
Pt aox4, NAD noted, RR even and non labored, skin pwd. Voices no needs at this time.
--- NOTE | 2024-09-23 21:31 | PC.NURSE ---
provider at bedside
[2024-09-23 21:49] VITALS: BP 101/72; PULSE 99; RESP 16; TEMP 36.7; O2SAT 94
== END 2024-09-23 21:50 | disposition home or self-care (01) ==
PROVIDERS: Physician Assistant; Emergency Provider Emergency Medicine; PCP Family Medicine
DX: J22 Unspecified acute lower respiratory infection (principal); J10.1 Influenza due to other identified influenza virus with other respiratory manifestations; R05.9 Cough, unspecified; R06.2 Wheezing; R09.89 Other specified symptoms and signs involving the circulatory and respiratory systems; R53.1 Weakness
CPT/HCPCS: 71046; 80053; 85025; 96374; 99283; J1100; J7620

== ENCOUNTER 2024-10-03 14:25 | Outpatient (CLI) | payer MEDICARE, SELFPAY ==
[2024-10-03 20:05] LABS: Alanine Aminotransferase 35 U/L (12-78); Albumin Level 4.3 g/dl (3.5-5.0); Albumin/Globulin Ratio 1.4 (1.1-1.8); Alkaline Phosphatase 57 U/L (38-126); Anion Gap 8.7 mEq/L (5-15); Aspartate Amino Transferase 35 U/L (14-36); Bilirubin,Total 0.5 mg/dl (0.2-1.3); Blood Urea Nitrogen 15 mg/dl (7-17); Calcium 9.2 mg/dl (8.4-10.2); Carbon Dioxide 30 mmol/L (22.0-30.0); Chloride 102 mmol/L (98-107); Chol/HDL Ratio 5.3 (1-3.5); Cholesterol 302 mg/dl (140-200); Estimated Glomerular Filt Rate 98 ml/min (>60); GFR (African American) 119 ML/MIN (>60); Globulin 3.1 g/dL (1.3-3.2); Glucose 89 mg/dl (74-100); HDL Cholesterol 57 mg/dl (40-60); Potassium 4.7 mmoL/L (3.5-5.1); Sodium 136 mmol/L (136-145); Total Protein,Serum 7.4 g/dl (6.3-8.2)
[2024-10-03 20:20] LABS: Direct LDL Cholesterol 94.69 mg/dL (100-129)
[2024-10-03 20:25] LABS: Free T4 (Free Thyroxine) 1.04 ng/dl (0.78-2.19); Triglycerides 872 mg/dl (30-150)
[2024-10-03 20:43] LABS: Thyroid Stimulating Hormone 1.49 uIU/mL (0.465-4.68)
[2024-10-03 21:15] LABS: Hemoglobin A1C 6.2 % (4.0-6.0)
== END 2024-10-03 23:59 | disposition home or self-care (01) ==
LOC: LAB.DROPOF 10-04 13:00
PROVIDERS: PCP Family Medicine; Visit Provider Family Medicine
DX: E04.1 Nontoxic single thyroid nodule (principal)
CPT/HCPCS: 80053; 80061; 83036; 84439; 84443

== ENCOUNTER 2024-10-10 10:42 | Outpatient (CLI) | payer MEDICARE, SELFPAY ==
--- NOTE | 2024-10-10 11:00 | US_ITS ---
FINAL REPORT TECHNIQUE: Sonographic images of the thyroid gland were obtained in the longitudinal and transverse planes. CLINICAL HISTORY: thryoid nodule, left COMPARISON: None FINDINGS: The right lobe measures 1.8 x 2.5 x 1.5 cm. Several small colloid cysts. No solid nodules. The left lobe measures 1.4 x 3.7 x 1.7 cm. Multiple hypoechoic nodules. Largest is a 1.9 cm TR 4. Second hypoechoic nodule measures 10 mm, also TR 4. The isthmus measures 3 mm. This is normal. IMPRESSION: 19 mm TR 4 left thyroid nodule. Biopsy recommended per TI-RADS criteria. 10 mm TR 4 left thyroid nodule. Recommend follow-up per TI-RADS criteria. Reviewed, Interpreted and Dictated by Viviana Crocker MD Transcribed by Sophia Joe Authenticated and [facility]
== END 2024-10-10 23:59 | disposition home or self-care (01) ==
LOC: RAD 10:42
PROVIDERS: PCP Family Medicine; Visit Provider Family Medicine
DX: E04.1 Nontoxic single thyroid nodule (principal)
CPT/HCPCS: 76536

== ENCOUNTER 2024-10-22 07:42 | Outpatient (CLI) | payer MEDICARE, SELFPAY ==
--- NOTE | 2024-10-22 08:00 | US_ITS ---
FINAL REPORT CLINICAL HISTORY: lt thyroid nodule -- lt thyroid nodule fna -- [place] FINDINGS: Ultrasound guided thyroid biopsy. HISTORY: Thyroid nodule. PROCEDURE: After informed consent was obtained and a time-out was performed, the patient was prepped and draped in usual sterile fashion over the anterior neck. Utilizing local anesthesia and sterile technique with a 25-gauge needle, access to the lesion was obtained. Four passes were made. The patient received no conscious sedation. The patient tolerated procedure well and left the department in good condition. IMPRESSION: Status post ultrasound guided biopsy of a thyroid nodule without immediate complication. Films reviewed , interpreted and dictated by Dr. Ivory. Transcribed by Petty Rodriguez PA-C. Reviewed, Interpreted and Dictated by Gelacio Ivory MD Transcribed by VIRIDIANA Grover Authenticated and . [facility]
--- OUTSIDE RECORDS SUMMARY | 2024-10-24 20:47 | XMS_ITS ---
Author Organization Unknown TREATMENT PLAN [facility] Start Date Provider Encounter for Check-up [id number] [facility]
== END 2024-10-22 23:59 | disposition home or self-care (01) ==
LOC: RAD 07:43
PROVIDERS: PCP Family Medicine; Visit Provider Family Medicine
DX: E04.1 Nontoxic single thyroid nodule (principal)
CPT/HCPCS: 76536; 76942

== ENCOUNTER 2025-04-09 11:28 | Outpatient (CLI) | payer MEDICARE, SELFPAY ==
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
--- OUTSIDE RECORDS SUMMARY | 2025-03-19 11:19 | XMS_ITS | Encounter Summary ---
Author Organization [facility] Address [address] [place] [address] Care Team Providers Care Dynamo Tender Name Role Phone Makeda Murry Primary Care Provider [phone] Reason for Visit * Episode Based Medications (Routine) - Authorized Specialty Diagnoses / Procedures Referred By Contac t Referred To Contact Diagnoses Psoriatic arthritis Procedures ME INFLIXIMAB NOT BIOSIMIL 10MG Raghu Mandel MD [address] [facility] [address] [place] [address] Phone: tel: fax: [facility] [address] [place] [address] Phone: tel: fax: Referral ID Status Reason Start Date Expiration Date V isits Requested Visits Authorized [id number] Authorized 12/13/2023 03/13/2026 1 1 Encounter Details Date Type Department Care Team (Late st Contact Info) Description 03/19/2025 11:19 AM EDT - 03/19/2025 11:59 PM EDT Hospital Encounter [facility] [place] [address] [facility] [address] [place] [phone] Raghu Mandel MD [address] [facility] [address] [place] [address] Psoriatic arthritis (Primary Dx) Discharge Disposition: Home or Self Care Social History Tobacco Use Types Packs/Day Years Used Date Smoking Tobacco: Never Smokeless Tobacco: Never Alcohol Use Standard Drinks/Week Comments Never 0 (1 standard drink = 0.6 oz pur e alcohol) PHQ-2 Answer Date Recorded Patient Health Questionnaire-9 Score 14 08/07/2024 Comments No Sex and Gender Information Value Date Recorded Sex Assigned at Not on file Legal Sex Female 10:02 AM EDT Gender Identity Not on file Sexual Orientation Not on file documented as of this encounter Last Filed Vital Signs Vital Sign Reading Time Taken Comments Blood Pressure 162/82 03/19/2025 2:17 PM EDT Pulse 82 03/19/2025 2:17 PM EDT Temperature 37 C (98.6 F) 03/19/2025 11:38 AM EDT Respiratory Rate 18 03/19/2025 11:38 AM EDT Oxygen Saturation - - Inhaled Oxygen Concentration - - Weight 82.8 kg (182 lb 9.6 oz) 03/19/2025 11:38 AM EDT Height 154.9 cm (5' 1 ) 03/19/2025 11:38 AM EDT Body Mass Index 34.5 03/19/2025 11:38 AM EDT documented in this encounter Medications at Time of Discharge alendronate (FOSAMAX) 70 MG tabletIndications :Osteopenia, unspecified location Take 1 tablet by mouth Every 7 (Seven) Days. 12 tablet 1 01/28/2025 aspirin 81 MG EC tablet Take 1 tablet by mouth Daily. atorvastatin (LIPITOR) 20 MG tablet Take 1 tablet by mouth Every Night. for cholesterol. 0 01/21/2019 celecoxib (CeleBREX) 100 MG capsule Take 1 capsule by mouth 2 (Two) Times a Day As Needed for Mild Pain. 60 capsule 5 01/28/2025 D3-1000 1000 units capsule Take 1 capsule DAILY administer with meals 3 01/21/2019 Diclofenac Sodium (VOLTAREN) 1 % gel gel Apply topically to the appropriate area as directed 4 (Four) Times a Day. 100 g 3 01/28/2025 DULoxetine (CYMBALTA) 60 MG capsuleIndication s:Chronic low back pain, unspecified back pain laterality, unspecified whether sciatica present TAKE 1 CAPSULE BY MOUTH DAILY 30 capsule 5 12/23/2024 folic acid (FOLVITE) 1 MG tabletIndications :Psoriatic arthritis,Encount er for long-term (current) use of high-risk medication Take 3 tablets by mouth Daily. 270 tablet 1 11/20/2024 INFLIXIMAB IV Infuse 5 mg/kg into a venous catheter Every 6 (Six) Weeks. lisinopril (PRINIVIL,ZESTRIL ) 20 MG tablet Take 1 tablet by mouth Daily. Methotrexate Sodium 50 MG/2ML injectionIndicati ons:Psoriatic arthritis,Encount er for long-term (current) use of high-risk medication Inject 1 mL under the skin into the appropriate area as directed 1 (One) Time Per Week. ADMINISTER 1ML UNDER THE SKIN ONCE WEEKLY 4 mL 3 09/10/2024 mupirocin (BACTROBAN) 2 % ointment APPLY TOPICALLY TO THE AFFECTED AREA THREE TIMES DAILY FOR 7 DAYS 05/03/2024 omeprazole (priLOSEC) 40 MG capsule Take 1 capsule by mouth Daily. Ozempic, 1 MG/DOSE, 4 MG/3ML solution pen-injector Inject 1 mg under the skin into the appropriate area as directed 1 (One) Time Per Week. 09/03/2024 pregabalin (LYRICA) 225 MG capsuleIndication s:Chronic low back pain, unspecified back pain laterality, unspecified whether sciatica present Take 1 capsule by mouth 2 (Two) Times a Day. 60 capsule 5 01/02/2025 Tuberculin Syringe (BD Syringe Slip Tip) 25G X 5/8 1 ML misc TO BE USED FOR METHOTREXATE INJECTION 12 each 1 02/28/2025 Tuberculin-Allerg y Syringes (B-D ALLERGY SYRINGE 1CC/28G) 28G X 1/2 1 ML miscIndications:E ncounter for long-term (current) use of high-risk medication USE ONCE A WEEK WITH METHOTREXATE INJECTION 4 each 3 09/10/2024 documented as of this encounter Plan of Treatment Upcoming Encounters Date Type Department Care Team (Late st Contact Info) Description 04/30/2025 11:30 AM EDT Appointment [facility] [place] [address] [facility] [address] [place] [address] 05/05/2025 1:30 PM EDT Office Visit [facility] [address] [phone] Raghu Mandel MD [address] [address] 06/24/2025 9:00 AM EST Appointment [facility] [place] [address] [phone] 06/24/2025 9:30 AM EST Office Visit [facility] [address] [phone] Raghu Mandel MD [address] [address] documented as of this encounter Visit Diagnoses Diagnosis Psoriatic arthritis- Primary Psoriatic arthropathy documented in this encounter Administered Medications Inactive Administered Medications - up to 3 most recent administrations Medication Order MAR Action Action Date Dose Rate Site acetaminophen (TYLENOL) tablet 650 mg 650 mg, Oral, Once, On Mon03/19/25 at 1145, For 1 dose, Based on patient request - if ordered for moderate or severe pain, provider allows for administration of a medication prescribed for a lower pain scale. Do not exceed 4 grams of acetaminophen in a 24 hr period. Max dose of 2gm for AST/ALT greater than 120 units/L. If given for pain, use the following pain scale: Mild Pain = Pain Score of 1-3, CPOT 1-2 Moderate Pain = Pain Score of 4-6, CPOT 3-4 Severe Pain = Pain Score of 7-10, CPOT 5-8Indications:Psoriatic arthritis Given 03/19/2025 12:00 PM EDT 650 mg cetirizine (zyrTEC) tablet 10 mg 10 mg, Oral, Once, On Mon03/19/25 at 1145, For 1 dose, Give one 10mg Loratadine Tablet PO, 30 minutes prior to start of Remicade treatment.Indications:Psoriat ic arthritis Given 03/19/2025 12:01 PM EDT 10 mg inFLIXimab (REMICADE) 415 mg in sodium chloride 0.9 % 250 mL IVPB 415 mg, Intravenous, Administer over 120 Minutes, Once, On Mon03/19/25 at 1215, For 1 dose, Use an in-line, sterile, non-pyrogenic, low protein-binding filter with 1.2 micron or smaller pore size. Biosimilar Use Indication: defaulted medication has been selected as insurance preferred product. Caution: Look alike/sound alike drug alert . Infuse with an in-line low protein binding filter (<1.2 micron)Indications:Psoriatic arthritis New Bag 03/19/2025 12:17 PM EDT 415 mg 125 mL/hr sodium chloride 0.9 % infusion 20 mL/hr, Intravenous, Once, On Mon03/19/25 at 1145, For 1 doseIndications:Psoriatic arthritis New Bag 03/19/2025 11:57 AM EDT 20 mL/hr 20 mL/hr documented in this encounter Care Teams Dynamo Tender Relationship Specialty Start Date End Date Makeda Murry PA PCP - General Physician Environmental Health And Safety Leader 01/05/24 documented as of this encounter
[2025-04-09 16:23] LABS: Coronavirus 19, PCR Not Detected (NotDetected); Influenza A, PCR Not Detected (NotDetected); Influenza B, PCR Not Detected (NotDetected)
--- OUTSIDE RECORDS SUMMARY | 2025-04-11 11:30 | XMS_ITS | Encounter Summary ---
Author Organization [facility] Address [address] [place] [address] Care Team Providers Care Compensation Advisor Name Role Phone Makeda Murry VIRIDIANA Primary Care Provider [phone] Encounter Details Date Type Department Care Team (Late Contact Info) Description 02/10/2025 Results Follow-Up [facility] [address] [facility] [address] [place] [phone] Raghu Mandel MD 330 [facility] [address] [place] [address] Social History Tobacco Use Types Packs/Day Years [...] on file documented as of this encounter Plan of Treatment Upcoming Encounters Date Type Department Care Team (Late st Contact Info) Description 04/30/2025 11:30 AM EDT Appointment [facility] [place] [address] [facility] [address] [place] [phone] 05/05/2025 1:30 PM EDT Office Visit [facility] [address] [phone] Raghu Mandel MD [address] [place] [phone] 06/24/2025 9:00 AM EST Appointment [facility] [place] [address] [phone] 06/24/2025 9:30 AM EST Office Visit [facility] [address] [place] [phone] Raghu Mandel MD [address] [place] [phone] documented as of this encounter Visit Diagnoses Not on filedocumented in this encounter Care Teams Compensation Advisor Relationship Specialty Start Date End Date Makeda Murry PA PCP - General Physician Cost Accountant 01/05/24 documented as of this encounter
--- OUTSIDE RECORDS SUMMARY | 2025-04-11 11:30 | XMS_ITS | Encounter Summary ---
[facility] Address [address] [place] [phone] Care Team Providers Care Property Valuer Name Role Phone Makeda Murry Primary Care Provider [phone] Encounter Details Date Type Department Care Team (Late st Contact Info) Description 01/29/2025 Telephone [facility] RHEUMATOLOGY [address] [address] Raghu Mandel MD [address] [phone] Social History Tobacco Use Types Packs/Day Years [...] on file documented as of this encounter Miscellaneous Notes * Telephone Encounter - Sheila Guerrero RN - 01/29/2025 1:[address] Mandel would like patient to get infusions every 6 weeks instead of every 8 weeks, still at the 5mg/kg. documented in this encounter Plan of Treatment Upcoming Encounters Date Type Department Care Team (Late st Contact Info) Description 04/30/2025 11:30 AM EDT Appointment [facility] OUTPATIENT ONCOLOGY [place] 3000 [facility] 160 [place] [address] 05/05/2025 1:30 PM EDT Office Visit [facility] RHEUMATOLOGY [address] [phone] Raghu Mandel MD 330 [facility] 100 [place] [address] 06/24/2025 9:00 AM EST Appointment [facility] RHEUMATOLOGY [place] [address] [phone] 06/24/2025 9:30 AM EST Office Visit [facility] RHEUMATOLOGY [address] [phone] Raghu Mandel MD [address] [address] documented as of this encounter Visit Diagnoses Not on filedocumented in this encounter Care Teams Property Valuer Relationship Specialty Start Date End Date Makeda Murry PA PCP - General Physician Manager Registration 01/05/24 documented as of this encounter
--- OUTSIDE RECORDS SUMMARY | 2025-04-11 11:30 | XMS_ITS | Encounter Summary ---
[facility] Address [address] [place] [address] Care Team Providers Care Director Of Human Resources Name Role Phone Jeanmarie Makeda KEMP Primary Care Provider [phone] Reason for Visit * Reason Comments Med Refill Encounter Details Date Type Department Care Team (Late st Contact Info) Description 02/28/2025 Refill [facility] RHEUMATOLOGY [address] [address] Raghu Mandel MD 330 [place] [phone] Chronic low back pain, unspecified back pain laterality, unspecified whether sciatica present Social History Tobacco Use Types Packs/Day Years [...] encounter Miscellaneous Notes * Telephone Encounter - Luis Bello MA - 02/28/2025 3:50 PM EDT Rx Refill Note Requested Prescriptions Pending Prescriptions Disp Refills pregabalin (LYRICA) 225 MG capsule [Pharmacy Med Name: PREGABALIN 225MG CAPSULES] 60 capsule Sig: TAKE 1 CAPSULE BY MOUTH TWICE DAILY BD Syringe Slip Tip 25G X 5/8 1 ML misc [Pharmacy Med Name: B-D #[id number] SYR/NDL 1ML 25GX5/8 TB] 12 each Sig: TO BE USED FOR METHOTREXATE INJECTION Last office visit with prescribing clinician: 01/28/2025 Last telemedicine visit with prescribing clinician: Visit date not found Next office visit with prescribing clinician: 05/05/2025 Would you like a call back once the refill request has been completed: [] Yes [] No If the office needs to give you a call back, can they leave a voicemail: [] Yes [] No Declining pregabalin request. New pregabalin rx sent 01/02 with 5 refills, will send rx for syringe. HUB OK TO RELAY Luis Bello MA 02/28/25, 15:50 EDT documented in this encounter Plan of Treatment Upcoming Encounters Date Type Department Care Team (Late st Contact Info) Description 04/30/2025 11:30 AM EDT Appointment [facility] OUTPATIENT ONCOLOGY [place] [address] [phone] 05/05/2025 1:30 PM EDT Office Visit [facility] RHEUMATOLOGY [address] [place] [phone] Raghu Mandel MD [address] [place] [address] 06/24/2025 9:00 AM EST Appointment [facility] RHEUMATOLOGY [place] [address] [phone] 06/24/2025 9:30 AM EST Office Visit [facility] RHEUMATOLOGY [address] [phone] Raghu Mandel MD [address] [place] [address] documented as of this encounter Visit Diagnoses Diagnosis Chronic low back pain, unspecified back pain laterality, unspecified whether sciatica present documented in this encounter Care Teams Director Of Human Resources Relationship Specialty Start Date End Date Makeda Murry PA PCP - General Physician Envelope Sealer 01/05/24 documented as of this encounter
--- OUTSIDE RECORDS SUMMARY | 2025-04-11 11:30 | XMS_ITS ---
Laboratory report Created on: February 11, 2025 EMELINAABDOUL SHETH : 1950 Sex: Female Author Name SUBHASH ELLE Organization Unknown PROBLEMS Problems List Code Description RESULTS Laboratory Orders Date Order Code Test 2025-02-05 [id number] QUANTIFERON-TB G OLD PLUS Laboratory Results Date LOINC Test Value Unit Reference Range Interpre tation 2025-02-05 QUANTIFERON INCUBATION INCPER 2025-02-05 [id number] QUANTIFERON TB1 AG VALUE 2.24 IU/ML 2025-02-05 [id number] QUANTIFERON TB2 AG VALUE 2.24 IU/ML 2025-02-05 [id number] QUANTIFERON NIL VALUE 2.32 IU/ML 2025-02-05 [id number] QUANTIFERON ARTEM GEN VALUE >10.00 IU/ML 2025-02-05 16825-2 QUANTIFERON-TB G OLD PLUS N NEGATIVE
--- OUTSIDE RECORDS SUMMARY | 2025-04-11 11:30 | XMS_ITS | Encounter Summary ---
[facility] Address [address] [place] [address] Care Team Providers Care Elder Counselor Name Role Phone Makeda Murry Primary Care Provider [phone] Reason for Visit * Reason Comments Med Refill Encounter Details Date Type Department Care Team (Late st Contact Info) Description 03/24/2025 Refill [facility] RHEUMATOLOGY [address] [phone] Raghu Mandel MD 330 [place] [address] Social History Tobacco Use Types Packs/Day Years [...] Telephone Encounter - Luis Bello MA - 03/24/2025 1:12 PM EDT Rx Refill Note Requested Prescriptions Pending Prescriptions Disp Refills predniSONE (DELTASONE) 5 MG tablet [Pharmacy Med Name: PREDNISONE 5MG TABLETS] 30 tablet 0 Sig: TAKE 4 TABLETS BY MOUTH EVERY MORNING FOR 3 DAYS, THEN 3 TABLETS FOR 3 DAYS, THEN 2 TABLETS FOR 3 DAYS, THEN 1 TABLET FOR 3 DAYS Last office visit with prescribing clinician: 01/28/2025 Last telemedicine visit with prescribing clinician: Visit date not found Next office visit with prescribing clinician: 05/05/2025 Would you like a call back once the refill request has been completed: [] Yes [] No If the office needs to give you a call back, can they leave a voicemail: [] Yes [] No Declining rx request for prednisone taper. Patient needs to contact office to notify us of flare/symptoms if prednisone taper needed. She was advised to move up her follow up appointment when taper rx was sent on 02/21 and scheduling left voicemail for her to call back to do this. HUB OK TO RELAY Luis Bello MA 03/24/25, 13:12 EDT documented in this encounter Plan of Treatment Upcoming Encounters Date Type Department Care Team (Late st Contact Info) Description 04/30/2025 11:30 AM EDT Appointment [facility] OUTPATIENT ONCOLOGY [place] [address] [phone] 05/05/2025 1:30 PM EDT Office Visit [facility] RHEUMATOLOGY [address] [place] [phone] Raghu Mandel MD [address] [place] [address] 06/24/2025 9:00 AM EST Appointment [facility] RHEUMATOLOGY [place] [address] [address] 06/24/2025 9:30 AM EST Office Visit [facility] RHEUMATOLOGY [address] [phone] Raghu Mandel MD [address] [place] [address] documented as of this encounter Visit Diagnoses Not on filedocumented in this encounter Care Teams Elder Counselor Relationship Specialty Start Date End Date Makeda Murry PA PCP - General Physician Hydraulic Governor Assembler 01/05/24 documented as of this encounter
--- OUTSIDE RECORDS SUMMARY | 2025-04-11 11:30 | XMS_ITS | Encounter Summary ---
[facility] Address [address] [place] [address] Care Team Providers Care Seaweed Harvester Name Role Phone Jeanmarie [place] VIRIDIANA Primary Care Provider [phone] Reason for Visit * Reason Comments Med Refill Encounter Details Date Type Department Care Team (Late st Contact Info) Description 02/28/2025 Refill [facility] RHEUMATOLOGY [address] [phone] Cary Novoa APRN 330 [place] [phone] Chronic low back pain, unspecified back pain [...] encounter Miscellaneous Notes * Telephone Encounter - Molly Ramos MA - 02/28/2025 11:58 AM EDT Patient has requested refill too soon documented in this encounter Plan of Treatment Upcoming Encounters Date Type Department Care Team (Late st Contact Info) Description 04/30/2025 11:30 AM EDT Appointment [facility] OUTPATIENT ONCOLOGY [place] 3000 [facility] [address] [place] [address] 05/05/2025 1:30 PM EDT Office Visit [facility] RHEUMATOLOGY 330 [facility] 100 [place] [address] Raghu Mandel MD 330 [facility] 100 [place] [address] 06/24/2025 9:00 AM EST Appointment [facility] RHEUMATOLOGY [place] [address] [phone] 06/24/2025 9:30 AM EST Office Visit [facility] RHEUMATOLOGY [address] [phone] Raghu Mandel MD [address] [address] documented as of this encounter Visit Diagnoses Diagnosis Chronic low back pain, unspecified back pain laterality, unspecified whether sciatica present documented in this encounter Care Teams Seaweed Harvester Relationship Specialty Start Date End Date Makeda Murry PA PCP - General Physician Alumni Relations Officer 01/05/24 documented as of this encounter
--- OUTSIDE RECORDS SUMMARY | 2025-04-11 11:30 | XMS_ITS | Encounter Summary ---
Author Organization [facility] Address [address] [place] [address] Care Team Providers Care Molder Punch Name Role Phone Makeda Murry Primary Care Provider [phone] Reason for Visit * Reason Onset Date Comments Med Refill 02/21/2025 Encounter Details Date Type Department Care Team (Late st Contact Info) Description 02/21/2025 Refill [facility] RHEUMATOLOGY [address] [phone] Raghu Mandel MD [address] [phone] Osteopenia, unspecified location Social History Tobacco Use Types Packs/Day Years [...] encounter Miscellaneous Notes * Telephone Encounter - Angela KebedeChiquita Rep - 02/21/2025 3:45 PM EDT Pt called stated that she needs a refill on her alendronate, but the pharmacy told her that a lowerdose if she taking it daily documented in this encounter Plan of Treatment Upcoming Encounters Date Type Department Care Team (Late st Contact Info) Description 04/30/2025 11:30 AM EDT Appointment [facility] OUTPATIENT ONCOLOGY [place] 3000 [facility] [place] [address] [place] [address] 05/05/2025 1:30 PM EDT Office Visit [facility] RHEUMATOLOGY [address] [phone] Raghu Mandel MD [address] [address] 06/24/2025 9:00 AM EST Appointment [facility] RHEUMATOLOGY [place] [address] [phone] 06/24/2025 9:30 AM EST Office Visit [facility] RHEUMATOLOGY [address] [phone] Raghu Mandel MD [address] [address] documented as of this encounter Visit Diagnoses Diagnosis Osteopenia, unspecified location documented in this encounter Care Teams Molder Punch Relationship Specialty Start Date End Date Makeda Murry PA PCP - General Physician Concrete Finisher Apprentice 01/05/24 documented as of this encounter
--- OUTSIDE RECORDS SUMMARY | 2025-04-11 11:30 | XMS_ITS | Encounter Summary ---
Author Organization [facility] Address [address] [place] [address] Care Team Providers Care Radio Program Checker Name Role Phone Jeanmarie [place] VIRIDIANA Primary Care Provider [phone] Encounter Details Date Type Department Care Team (Latest Contact Info) Description 03/19/2025 Travel Social History Tobacco Use Types Packs/Day Years [...] Info) Description 04/30/2025 11:30 AM EDT Appointment [facility] OUTPATIENT ONCOLOGY [place] 3000 [facility] 160 [place] [phone] 05/05/2025 1:30 PM EDT Office Visit [facility] RHEUMATOLOGY 330 [facility] 100 [place] [phone] Raghu Mandel MD 330 [facility] 100 [place] [address] 06/24/2025 9:00 AM EST Appointment [facility] RHEUMATOLOGY [place] [address] [address] 06/24/2025 9:30 AM EST Office Visit [facility] RHE[facility] [address] [phone] Raghu Mandel MD [address] [phone] documented as of this encounter Visit Diagnoses Not on filedocumented in this encounter Care Teams Radio Program Checker Relationship Specialty Start Date End Date Makeda Murry PA PCP - General Physician Radiology Equipment Servicer 01/05/24 documented as of this encounter
--- OUTSIDE RECORDS SUMMARY | 2025-04-11 11:30 | XMS_ITS | Encounter Summary ---
[facility] Address [address] [place] [address] Care Team Providers Care C Architect Name Role Phone Makeda Murry Primary Care Provider [phone] Reason for Visit * Reason Onset Date Comments Med Management 03/24/2025 Encounter Details Date Type Department Care Team (Late st Contact Info) Description 03/24/[address] [facility] RHEUMATOLOGY [address] [place] [phone] Raghu Mandel MD 330 [place] [phone] Med Management Social History Tobacco Use Types Packs/Day Years [...] encounter Miscellaneous Notes * Telephone Encounter - Vivi Tubbs MA - 03/25/2025 9:45 AM EDT I informed pt that rx had been sent in for her. -LUIS Molina * Telephone Encounter - Raghu Mandel MD - 03/24/2025 5:31 PM EDT Prednisone taper sent to her pharmacy * Telephone Encounter - Tristan Mckenzie RegSched Rep - 03/24/2025 2:45 PM EDT PT STATED HER LEGS ARE SWOLLEN AND THE ONLY THING THAT GAVE HER RELIEF WAS PREDNISONE AND WAS REQUESTING A REFILL. UNABLE TO LOCATE IN MED MANAGEMENT SECTION. PLEASE ADVISE. -ZC documented in this encounter Plan of Treatment Upcoming Encounters Date Type Department Care Team (Late st Contact Info) Description 04/30/2025 11:30 AM EDT Appointment [facility] OUTPATIENT ONCOLOGY [place] [address] [address] 05/05/2025 1:30 PM EDT Office Visit [facility] RHEUMATOLOGY [address] [phone] Raghu Mandel MD [address] [place] [address] 06/24/2025 9:00 AM EST Appointment [facility] RHEUMATOLOGY [place] [address] [phone] 06/24/2025 9:30 AM EST Office Visit [facility] RHEUMATOLOGY [address] [phone] Raghu Mandel MD [address] [place] [address] documented as of this encounter Visit Diagnoses Not on filedocumented in this encounter Care Teams C Architect Relationship Specialty Start Date End Date Makeda Murry PA PCP - General Physician Image Archivist 01/05/24 documented as of this encounter
--- OUTSIDE RECORDS SUMMARY | 2025-04-11 11:30 | XMS_ITS | Encounter Summary ---
[facility] Address [address] [place] [address] Care Team Providers Care Director Medical Name Role Phone Jeanmarie [place] VIRIDIANA Primary Care Provider [phone] Reason for Visit * Reason Onset Date Comments Advice Only 02/20/2025 Encounter Details Date Type Department Care Team (Late st Contact Info) Description 02/20/2025 Telephone [facility] RHEUMATOLOGY [address] [place] [phone] Raghu Mandel MD 330 [place] [phone] Advice Only Social History Tobacco Use Types Packs/Day Years [...] encounter Miscellaneous Notes * Telephone Encounter - Allison Ramos RegSched Rep - 02/25/2025 2:10 PM EDT 02/25 LEFT PT VM REGARDING NEW APPT DATE & TIME.LD * Telephone Encounter - Vivi Tubbs MA - 02/21/2025 4:54 PM EDT Pt notified that rx had been sent in for her. She is fine with sooner appt, but would like it to bewith Dr. Mandel. -LUIS Molina * Telephone Encounter - Tristan Mckenzie RegSched Rep - 02/21/2025 8:23 AM EDT Please notify front desk supervisor or transfer call once patient has been contacted about medication. -ZC * Telephone Encounter - Tristan Mckenzie RegSched Rep - 02/20/2025 12:44 PM EDT PT HAS USED CREAM IS NOT HAVING RELIEF IN HANDS. PAIN BELOW ON RIGHT SIDE OF KNEES IS STARTING TO SWELL. PT IS HAVING ISSUES WITH FATIGUE. STATED IT HAS BEEN LIKE THIS FOR WEEKS. PLEASE ADVISE. -ZC documented in this encounter Plan of Treatment Upcoming Encounters Date Type Department Care Team (Late st Contact Info) Description 04/30/2025 11:30 AM EDT Appointment [facility] OUTPATIENT ONCOLOGY [place] 3000 [facility] 160 [place] [address] 05/05/2025 1:30 PM EDT Office Visit [facility] RHEUMATOLOGY 330 [facility] 100 [place] [phone] Raghu Mandel MD 330 [facility] 100 [place] [address] 06/24/2025 9:00 AM EST Appointment [facility] RHEUMATOLOGY [place] [address] [phone] 06/24/2025 9:30 AM EST Office Visit [facility] RHEUMATOLOGY [address] [phone] Raghu Mandel MD [address] [phone] documented as of this encounter Visit Diagnoses Not on filedocumented in this encounter Care Teams Director Medical Relationship Specialty Start Date End Date Makeda Murry PA PCP - General Physician Air Battle Manager 01/05/24 documented as of this encounter
--- OUTSIDE RECORDS SUMMARY | 2025-04-11 11:31 | XMS_ITS | Encounter Summary ---
[facility] [address] [place] [phone] Care Team Providers Care Rental Agent Name Role Phone Jeanmarie [place] VIRIDIANA Primary Care Provider [phone] Reason for Visit * Reason Comments Med Refill Encounter Details Date Type Department Care Team (Late st Contact Info) Description 08/19/2024 Refill [facility] RHEUMATOLOGY [address] [address] Raghu Mandel MD 330 [place] [address] Social History Tobacco Use Types Packs/Day Years [...] encounter Miscellaneous Notes * Telephone Encounter - Cinthya Lang RN - 08/20/2024 3:12 PM EST CALLED IN [facility]. documented in this encounter Plan of Treatment Upcoming Encounters Date Type Department Care Team (Late st Contact Info) Description 04/30/2025 11:30 AM EDT Appointment [facility] OUTPATIENT ONCOLOGY [place] 3000 [facility] 160 [place] [address] 05/05/2025 1:30 PM EDT Office Visit [facility] RHEUMATOLOGY [address] [phone] Raghu Mandel MD [address] [address] 06/24/2025 9:00 AM EST Appointment [facility] RHEUMATOLOGY [place] [address] [address] 06/24/2025 9:30 AM EST Office Visit [facility] RHEUMATOLOGY [address] [phone] Raghu Mandel MD [address] [address] documented as of this encounter Visit Diagnoses Not on filedocumented in this encounter Care Teams Rental Agent Relationship Specialty Start Date End Date Makeda Murry PA PCP - General Physician Biological Inspector 01/05/24 documented as of this encounter
--- OUTSIDE RECORDS SUMMARY | 2025-04-11 11:31 | XMS_ITS | Patient Health Record ---
Author Organization [facility] Address [address] [place] [address] Care Team Providers Care Vendor Management Associate Name Role Phone Raghu Mandel MD Primary Care Provider Grady Pittman Unavailable Migration, Provider Unavailable Unavailable Allergies Allergen (clinical drug ingredient) Drug/Non Drug Allergy documented on EMR Reaction Allergy Type Onset Date Status morphine Morphine stomach upset, headache Drug Allergy Active Reason For Referral No Information Medications Medication SIG (Take, Route, Frequency, Duration) Notes Start Date End Date Status OSTEO BI-FLEX ADVANCED WITH ASCORBIC ACID AND MINERALS TABLET 2 TAB(S) ORALLY ONCE A DAY *Please review for potential replacement for e-prescription and drug interaction check* Active Gabapentin 600 MG Tablet ; Duration: 30 Days Active Alendronate Sodium 70 MG Tablet 1 tab(s) orally once a week Active Rosuvastatin Calcium 10 MG Tablet 1 tab(s) orally once a day 07/14/2022 Active Spironolactone 25 MG Tablet 1 tab(s) orally once a day Active Celecoxib 200 MG Capsule TAKE 1 CAPSULE BY MOUTH TWICE DAILY; Duration: 30 Days Active Vitamin D3 *Please review and pick correct strength-formulat ion from [employer] options. If intended option is not shown, discontinue and re-order from Quick Search* Active predniSONE 5 MG Tablet TAKE 1 TABLET BY MOUTH EVERY MORNING THEN STOP; Duration: 30 Days Active Escitalopram Oxalate 20 MG Tablet 1 tab(s) orally once a day Active Folic Acid 1 MG Tablet TAKE 1 TABLET BY MOUTH EVERY DAY; Duration: 90 Days Active DULoxetine HCl 60 MG Capsule Delayed Release Particles 1 cap(s) orally once a day Active Omeprazole 40 MG Capsule Delayed Release TAKE 1 CAPSULE BY MOUTH DAILY; Duration: 30 Days Active LISINOPRIL/HCTZ 1 TABLET(S) BY KAY TH DAILY *Please review for potential replacement for e-prescription and drug interaction check* Active CeleBREX *Please review and pick correct strength-formulat ion from [employer] options. If intended option is not shown, discontinue and re-order from Quick Search* Active Methotrexate 25 MG/ML SOLUTION DIRECTED INTRAVENOUSLY *Please review and pick correct strength-formulat ion from [employer] options. If intended option is not shown, discontinue and re-order from Quick Search* Active Bisoprolol Fumarate 5 MG Tablet 1 tab(s) orally once a day 07/14/2022 Active Folic Acid 1 MG Tablet 1 tab(s) orally once a day Active Social History Tobacco Use: Social History Observation Description Date Details (start date - stop date) Never Smoker NA - NA Social History General Social Info Question Answer Notes Substance use:- Have you used drugs other than those for medical reasons in the past 12 months? No (portal) Smoking status: nonsmoker (portal) Did you have a drink contain ing alcohol in the past year? Yes (portal) How often did you have a drink containing alcohol in the past year? Monthly or less (1 point) (portal) How many drinks did you have on a typical day when you were drinking in the past year? 1 or 2 (0 points) (portal) How often did you have six or more drinks on one occasion in the past year? Less than monthly (1 point) (portal) Personal History Marital status / Partnered (p ortal) Do you have a partner or antoni ed one who provides emotional support or feels safe to talk to? Yes (portal) Do you have a partner or antoni ed one who can help with physical tasks (driving, cooking, helping to move) if you are unable to do so for yourself? Yes (portal) What is your highest level of education? College graduate (portal) What is your work status? Retired (luz elena l) Do you exercise at least 2-3 times per week No (portal) Do you eat fast food more than 2-3 times per wee k? No (portal) Do you drink soda, pop, or s weet drinks (eg coffee) more than 2-3 times per week? 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 PE findings suggest involvement of the bilateral L4-S1 facets as well as bilateral ILL. Will start with diagnostic L4-S1 MBB, but will also refer to Dr. Rosas for in-depth movement analysis and a discussion of formal PT vs HEP if found to be needed. Will follow up after movement analysis and initial diagnostic MBB. Encounters Encounter Location Date Provider Diagnosis [facility] [address] [place] [address] 06/22/2024 Provider Migration Plan Of Treatment Pending Test Test Name Order Date Functional Biomarkers 07/14/2022 Future Test Test Name Order Date PPM - Personalized Pain Management (9921 3) 07/14/2022 LMB2B L4-S1 - Bilateral L4-S1 MBB (23198 , 12986 G000) 07/14/2022 PT - Movement Analysis; Eval uation and Treatment ([id number], 97444, 01343, 52367, 81236, 31948) 07/14/2022 Insurance Providers Payer Name Payer Address Payer Phone Subscriber Number Group Number Insured Name Patient Relationship to Insured Coverage Start Date Coverage End Date [employer] Medicare [address] [place] [address] [id number] Skye Price Self - patient is the insured 2 Medical (General) History 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 History ICD Code Anxiety: Yes(portal) Depression: Yes(portal) Diabetes, type II: Yes(portal) Hearing Loss: Yes(portal) knee pain: Yes(portal) Surgical History Surgery Date(Month/Year) Cholecystectomy
--- OUTSIDE RECORDS SUMMARY | 2025-04-11 11:31 | XMS_ITS | Clinical Summary ---
Author Organization [facility] Address [address] [place] [address] Care Team Providers Care Numerical Control Tool Programmer Name Role Phone Makeda Murry Primary Care Provider [phone] Allergies No known active allergies Medications atorvastatin (LIPITOR) 20 MG tablet Take 1 tablet by mouth Every Night. for cholesterol. 0 9 Active D3-1000 1000 units capsule Take 1 capsule DAILY administer with meals 3 9 Active aspirin 81 MG EC tablet Take 1 tablet by mouth Daily. Active lisinopril (PRINIVIL,ZESTR IL) 20 MG tablet Take 1 tablet by mouth Daily. Active omeprazole (priLOSEC) 40 MG capsule Take 1 capsule by mouth Daily. Active INFLIXIMAB IV Infuse 5 mg/kg into a venous catheter Every 6 (Six) Weeks. Active mupirocin (BACTROBAN) 2 % ointment APPLY TOPICALLY TO THE AFFECTED AREA THREE TIMES DAILY FOR 7 DAYS 4 Active Ozempic, 1 MG/DOSE, 4 MG/3ML solution pen-injector Inject 1 mg under the skin into the appropriate area as directed 1 (One) Time Per Week. 5 Active Methotrexate Sodium 50 MG/2ML injectionIndica tions:Psoriatic arthritis,Encou nter for long-term (current) use of high-risk medication Inject 1 mL under the skin into the appropriate area as directed 1 (One) Time Per Week. ADMINISTER 1ML UNDER THE SKIN ONCE WEEKLY 4 mL 3 5 Active Tuberculin-Neil rgy Syringes (B-D ALLERGY SYRINGE 1CC/28G) 28G X 1/2 1 ML miscIndications :Encounter for long-term (current) use of high-risk medication USE ONCE A WEEK WITH METHOTREXATE INJECTION 4 each 3 5 Active folic acid (FOLVITE) 1 MG tabletIndicatio ns:Psoriatic arthritis,Encou nter for long-term (current) use of high-risk medication Take 3 tablets by mouth Daily. 270 tablet 1 5 Active DULoxetine (CYMBALTA) 60 MG capsuleIndicati ons:Chronic low back pain, unspecified back pain laterality, unspecified whether sciatica present TAKE 1 CAPSULE BY MOUTH DAILY 30 capsule 5 5 Active pregabalin (LYRICA) 225 MG capsuleIndicati ons:Chronic low back pain, unspecified back pain laterality, unspecified whether sciatica present Take 1 capsule by mouth 2 (Two) Times a Day. 60 capsule 5 5 Active celecoxib (CeleBREX) 100 MG capsule Take 1 capsule by mouth 2 (Two) Times a Day As Needed for Mild Pain. 60 capsule 5 5 Active Diclofenac Sodium (VOLTAREN) 1 % gel gel Apply topically to the appropriate area as directed 4 (Four) Times a Day. 100 g 3 5 Active alendronate (FOSAMAX) 70 MG tabletIndicatio ns:Osteopenia, unspecified location Take 1 tablet by mouth Every 7 (Seven) Days. 12 tablet 1 5 Active Tuberculin Syringe (BD Syringe Slip Tip) 25G X 5/8 1 ML misc TO BE USED FOR METHOTREXATE INJECTION 12 each 1 5 Active predniSONE (DELTASONE) 5 MG tablet Take 4 tablets by mouth Every Morning for 3 days, THEN 3 tablets Every Morning for 3 days, THEN 2 tablets Every Morning for 3 days, THEN 1 tablet Every Morning for 3 days. Take 4 tablets every morning for 3 days, 3 tablets every morning for 3 days, 2 tablets every morning for 3 day, 1 tablet every morning for 3 days. 30 tablet 5 025 Active Problems Problem Noted Date Diagnosed Date Encounter for long-term (cur rent) use of high-risk medication 01/05/2024 Assessment & Plan (01/05/2024 12:26 PM EDT): Methotrexate well-tolerated and effective Continue labs every 8 to 12 weeks Risks include but are not limited to severe liver damage that can be fatal, the possible need for liver biopsy, bone marrow suppression that can lead to dangerously low blood counts, GI side effects including mouth sores and diarrhea, fatigue, and rare risk of severe pulmonary complications. There should be no alcohol consumed with MTX. MTX can cause severe abnormalities whether the mother or father is taking the medication and thus must be avoided if is a possibility. All medication is to be taken one day a week only. 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 No recent infections. No infusion reactions. Negative QTB 01/12/2023. We will repeat TB today and we will also recheck hepatitis panel. We have discussed biologic agents at length. Risks and alternatives were discussed at length and the option of no treatment was also given. We discussed risks including but not limited to infections which can be unusual, severe, and deadly. When possible, these agents should be stopped immediately if infections occur. Unusual infection such as TB and fungal infections can occur. There may be an increased risk of lymphoma with these agents. Other risks can include a multiple sclerosis-like illness and worsening of heart failure. Infusion or injection reactions which can be deadly have been reported. Studies on have not been done so should be avoided while on these agents. Reactivation of a deadly brain virus and hepatitis viruses have been reported. Worsening of COPD has been seen with orencia. Elevated lipids, elevation in liver functions, and dangerous changes in blood counts have been seen with certain agents. Regular monitoring will be required Chronic low back pain 01/05/2024 Assessment & Plan (01/05/2024 3:47 PM EDT): MRI 2018 lumbar spine with bulging disks and DDD 04/2022 lumbar spine with degenerative changes on x-ray She has been referred to pain management Dr. Crane. She saw a different paint spraying machine operator helper late June 2022 he was going to give injections for her but she decided against doing this due to needle phobia. Continue pregabalin and Cymbalta Osteopenia 01/05/2024 Assessment & Plan (01/05/2024 12:28 PM EDT): ACL DEXA 01/06/2021-osteopenia with elevated FRAX score right femoral neck Fosamax start 01/06/2021 DEXA ACL 04/20/23: Stable osteopenia. Recommend continue calcium, vitamin-D, and weight-bearing exercise Continue Fosamax once weekly. This is well tolerated. Risk benefits of bisphosphonates/prolia discussed in detail including but not limited to osteonecrosis jaw, atypical femoral fracture, bone , kidney failure, hypocalcemia. Patient has no reported jaw or tooth pain. Repeat DEXA 04/2025 NSAID long-term use 01/05/2024 Assessment & Plan (01/05/2024 3:48 PM EDT): She is no longer taking NSAIDs due to history of renal insufficiency. Most recently renal function has improved to normal off NSAIDs August 2023. Positive RADHA (antinuclear antibody) 01/05/2024 Assessment & Plan (01/05/2024 12:29 PM EDT): RADHA 1:80 historically This weakly positive RADHA most likely represents a false-positive RADHA or may be related to her inflammatory arthritis in her hands. There are no clinical features of lupus or connective tissue disease. No Raynaud's, no malar rash, no oral nasal ulcers, no pleurisy/pericarditis, no seizure disorder, no renal or hematologic abnormality. No clotting disorder. No photosensitivity An RADHA test is a non specific test. While it certainly can be positive in conditions like SLE, scleroderma, myositis, Sj gren's, RA , vasculitis etc.. It can also be positive in patients with thyroid disease, type 1 diabetes, psoriasis, Celiac disease, inflammatory bowel disease, COPD/chronic lung disease, cancers, etc.. There are also reports of normal/apparently healthy individuals who are incidentally found to have a +RADHA test. You can also frequently get a false positive RADHA test. Positive RADHA results increase with age. 15% of patients over 65 years of age are RADHA positive, along with 5% of the general population. handout on positive RADHA test given. Reassurance given that I do not think she has a connective tissue disease or lupus Diabetes 01/05/2024 Assessment & Plan (01/05/2024 3:49 PM EDT): With neuropathy. Continue Lyrica. She reports she takes 225 mg dose once daily. It was previously ordered twice daily but she reports she did not tolerate this dose. Continue close follow-up with PCP. Encounter for medication monitoring 01/05/2024 Assessment & Plan (01/05/2024 3:49 PM EDT): Update hepatitis panel UDS today PDMP reviewed Controlled substance agreement discussed and signed. 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 Brother was state senator/dentist Inflammatory polyarthritis bilateral hands; no personal psoriasis. +Brother with psoriasis, dystrophy nails/pits Negative RF, positive RADHA 1:80 Current: Subcu methotrexate 10/04, Infliximab started 01/2022, celecoxib Suspected psoriatic arthritis without psoriasis. Positive family history of psoriasis brother. + hx inflammatory arthritis bilateral hands historically. Negative rheumatoid marker. Elevated inflammatory markers historically. Moderate disease activity. She has had a hard time getting her infusions regularly. Most recent infusion 12/22/23. Flaring. Steroid taper sent to her pharmacy. Continue infliximab infusion every 8 weeks. We discussed that hopefully with regular infusions she will see improvement in her condition. Continue SQ methotrexate which is well tolerated and effective Continue folic acid 3 mg daily. Oral ulcers much improved. Continue Cymbalta. She thinks this has been helpful. Continue diclofenac gel. Labs for monitoring every 8 weeks. Order placed in system. Return to clinic 3-4 months Encounters Date Type Department Care Team Description 03/24/2025 Telephone [facility] [address] [place] [phone] Raghu Mandel MD Med Management 03/24/2025 Refill [facility] [address] [place] [phone] Raghu Mandel MD 03/19/2025 11:19 AM EDT - 03/19/2025 11:59 PM EDT Hospital Encounter [facility] [address] [facility] [address] [place] [address] Raghu Mandel MD Psoriatic arthritis (Primary Dx) Discharge Disposition: Home or Self Care 03/19/2025 Travel 02/28/2025 Refill [facility] [address] [place] [phone] Raghu Mandel MD Chronic low back pain, unspecified back pain laterality, unspecified whether sciatica present 02/28/2025 Refill [facility] [address] [place] [phone] Cary Novoa, RAFFI Chronic low back pain, unspecified back pain laterality, unspecified whether sciatica present 02/21/2025 Refill [facility] [address] [place] [phone] Raghu Mandel MD Osteopenia, unspecified location 02/20/2025 Telephone [facility] [address] [place] [phone] Raghu Mandel MD Advice Only 02/10/2025 Results Follow-Up [facility] [address] [place] [phone] Raghu Mandel MD 02/06/2025 Results Follow-Up [facility] [address] [phone] Raghu Mandel MD 02/05/2025 11:05 AM EDT - 02/05/2025 11:59 PM EDT Hospital Encounter [facility] [address] [phone] Raghu Mandel MD Psoriatic arthritis (Primary Dx); Encounter for medication monitoring; Positive RADHA (antinuclear antibody); Chronic low back pain, unspecified back pain laterality, unspecified whether sciatica present; Immunodeficiency due to treatment with immunosuppressive medication; Encounter for long-term (current) use of high-risk medication Discharge Disposition: Home or Self Care 02/05/2025 Travel 02/04/2025 Refill [facility] [address] [place] [phone] Raghu Mandel MD 01/29/2025 Telephone [facility] [address] [place] [phone] Raghu Mandel MD 01/28/2025 3:30 PM EDT Office Visit [facility] [address] [place] [phone] Raghu Mandel MD Psoriatic arthritis (Primary Dx); Osteopenia, unspecified location; Immunodeficiency due to treatment with immunosuppressive medication; Encounter for medication monitoring; Encounter for long-term (current) use of high-risk medication; Post-menopause; High risk medication use 01/28/2025 Telephone [facility] [address] [place] [phone] Raghu Mandel MD 01/28/2025 Travel 01/20/2025 Refill [facility] [address] [place] [phone] Cary Novoa, AGRICULTURAL SYSTEMS SPECIALIST Osteopenia, unspecified location from Last 3 Months Immunizations Immunization Administration Dates Next Due Influenza, Unspecified 04/20/2020 Family History 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 Relation Name Comments Prostate cancer Brother Psoriasis Brother Skin cancer Brother Seizures Daughter Bone cancer Father Lung cancer Father Intracerebral hemorrhage Mother Cancer Other FAMILY HISOTRY Other Other FAMILY HISOTRY POST COVID IN FEBRUARY Stroke Other FAMILY HISOTRY Relation Name Status Comments Brother Daughter Father Mother Other FAMILY HISOTRY Social History Tobacco Use Types Packs/Day Years Used Date Smoking Tobacco: Never Smokeless Tobacco: Never Tobacco Cessation:Counseling Given: Not Answered Alcohol Use Standard Drinks/Week Comments Never 0 (1 standard drink = 0.6 oz pur e alcohol) PHQ-2 Answer Date Recorded Patient Health Questionnaire-9 Score 14 08/07/2024 Comments No Sex and Gender Information Value Date Recorded Sex Assigned at Not on file Legal Sex Female 10:02 AM EDT Gender Identity Not on file Sexual Orientation Not on file Last Filed Vital Signs Vital Sign Reading Time Taken Comments Blood Pressure 162/82 03/19/2025 2:17 PM EDT Pulse 82 03/19/2025 2:17 PM EDT Temperature 37 C (98.6 F) 03/19/2025 11:38 AM EDT Respiratory Rate 18 03/19/2025 11:38 AM EDT Oxygen Saturation 97% 02/15/2019 5:17 PM EDT Inhaled Oxygen Concentration - - Weight 82.8 kg (182 lb 9.6 oz) 03/19/2025 11:38 AM EDT Height 154.9 cm (5' 1 ) 03/19/2025 11:38 AM EDT Body Mass Index 34.5 03/19/2025 11:38 AM EDT Plan of Treatment Upcoming Encounters Date Type Department Care Team (Late st Contact Info) Description 04/30/2025 11:30 AM EDT Appointment [facility] [address] [facility] [address] [place] [phone] 05/05/2025 1:30 PM EDT Office Visit [facility] [address] [facility] [address] [place] [address] Raghu Mandel MD [address] [facility] [address] [place] [address] 06/24/2025 9:00 AM EST Appointment [facility] [place] [address] [phone] 06/24/2025 9:30 AM EST Office Visit [facility] [address] [phone] Raghu Mandel MD [address] [phone] Health Maintenance Due Date Last Done Comments LIPID PANEL 1951 DIABETIC EYE EXAM 1961 DIABETIC FOOT EXAM 1961 URINE MICROALBUMIN-CREATININ E RATIO (uACR) 1961 Pneumococcal Vaccine 50+ (1 of 2 - PCV) 1970 ZOSTER VACCINE (1 of 2) 1970 MAMMOGRAM 1991 COLOGUARD 1996 COLON CANCER SCREENING 5 YEA R SIGMOIDOSCOPY 1996 COLONOSCOPY 1996 [address]ECTAL CANCER SCREENING 1996 CT COLONOGRAPHY 1996 FECAL OCCULT BLOOD TEST 1996 FIT Testing (1 year) 1996 ANNUAL WELLNESS VISIT 02/15/2019 HEMOGLOBIN A1C 02/15/2019 COVID-19 Vaccine (3 - Modern a risk series) 11/20/2020 10/23/2020, 09/22/2020 INFLUENZA VACCINE 02/14/2025 06/03/2022, , 04/20/2020, Additional history exists DXA SCAN 06/18/2026 06/18/2024, 01/03/2024 TDAP/TD VACCINES (2 - Td or Tdap) 07/31/2030 021 HEPATITIS C SCREENING Completed 01/05/2024 Procedures Procedure Name Priority Date/Time Associated Diagnosis Comments FENTANYL, URINE Routine 02/05/2025 12:30 PM EDT Psoriatic arthritis Encounter for medication monitoring Positive RADHA (antinuclear antibody) Chronic low back pain, unspecified back pain laterality, unspecified whether sciatica present URINE DRUG SCREEN Routine 02/05/2025 12: 30 PM EDT Psoriatic arthritis Encounter for medication monitoring Positive RADHA (antinuclear antibody) Chronic low back pain, unspecified back pain laterality, unspecified whether sciatica present CBC AND DIFFERENTIAL Routine 02/05/2025 11:42 AM EDT Psoriatic arthritis Encounter for medication monitoring Immunodeficiency due to treatment with immunosuppressive medication Encounter for long-term (current) use of high-risk medication QUANTIFERON-TB GOLD PLUS Routine 02/05/2025 11:42 AM EDT Psoriatic arthritis Immunodeficiency due to treatment with immunosuppressive medication Encounter for medication monitoring Encounter for long-term (current) use of high-risk medication CBC WITH AUTO DIFFERENTIAL Routine 02/05/2025 11:42 AM EDT Psoriatic arthritis Encounter for medication monitoring Immunodeficiency due to treatment with immunosuppressive medication Encounter for long-term (current) use of high-risk medication SEDIMENTATION RATE Routine 02/05/2025 11 :42 AM EDT Psoriatic arthritis Encounter for medication monitoring Immunodeficiency due to treatment with immunosuppressive medication Encounter for long-term (current) use of high-risk medication COMPREHENSIVE METABOLIC PANEL Routine 02/05/2025 11:42 AM EDT Psoriatic arthritis Encounter for medication monitoring Immunodeficiency due to treatment with immunosuppressive medication Encounter for long-term (current) use of high-risk medication C-REACTIVE PROTEIN Routine 02/05/2025 11 :42 AM EDT Psoriatic arthritis Encounter for medication monitoring Immunodeficiency due to treatment with immunosuppressive medication Encounter for long-term (current) use of high-risk medication QUANTIFERON-TB GOLD PLUS (LI-HEP) Routine 02/05/2025 11:42 AM EDT Psoriatic arthritis Immunodeficiency due to treatment with immunosuppressive medication Encounter for medication monitoring Encounter for long-term (current) use of high-risk medication SCANNED - DEXA 06/18/2024 HEPATITIS PANEL, ACUTE Routine 01/05/2024 3:51 PM EDT Encounter for medication monitoring Other fatigue from Last 3 Months or Most Recently Relevant to Health Maintenance Results * Urine Drug Screen - Urine, Clean Catch (02/05/2025 12:30 PM EDT) THC, Screen, Urine Negative Negative 2024 12:49 PM EDT [facility] Phencyclidine (PCP), Urine Negative Negative 02/05/2025 12:49 PM EDT [facility] Cocaine Screen, Urine Negative Negative 02/05/2025 12:49 PM EDT [facility] Methamphetamine, Ur Negative Negative 02/05 12:49 PM EDT [facility] Opiate Screen Negative Negative 02/05/2025 12:49 PM [facility] Amphetamine Screen, Urine Negative Negative 02/05/2025 12:49 PM [facility] Benzodiazepine Screen, Urine Negative Negative 02/05/2025 12:49 PM [facility] Tricyclic Antidepressants Screen Negative Negative 02/05/2025 12:49 PM [facility] Methadone Screen, Urine Negative Negative [facility] Barbiturates Screen, Urine Negative Negative 02/05/2025 12:49 PM [facility] Oxycodone Screen, Urine Negative Negative 02/05/2025 12:49 PM [facility] Buprenorphine, Screen, Urine Negative Negative 02/05/2025 12:49 PM [facility] Urine Urine specimen obtained by clean catch procedure / Unknown Collection / Unknown 02/05/2025 12:30 PM EDT 02/05/2025 12:34 PM EDT [facility] - 02/05/2025 12:49 PM EDT Cutoff For Drugs Screened: Amphetamines 500 ng/ml Barbiturates 200 ng/ml Benzodiazepines 150 ng/ml Cocaine 150 ng/ml Methadone 200 ng/ml Opiates 100 ng/ml Phencyclidine 25 ng/ml THC 50 ng/ml Methamphetamine 500 ng/ml Tricyclic Antidepressants 300 ng/ml Oxycodone 100 ng/ml Buprenorphine 10 ng/ml The normal value for all drugs tested is negative. This report includes unconfirmed screening results, with the cutoff values listed, to be used for medical treatment purposes only. Unconfirmed results must not be used for non-medical purposes such as employment or legal testing. Clinical consideration should be applied to any drug of abuse test, particularly when unconfirmed results are used. us Raghu Mandel MD URINE ORDERABLES Final Resu lt Performing Organization Address City[facility] Co de Phone Number [facility]
[address] [place] [address], [place] * Fentanyl, Urine - Urine, Clean Catch (02/05/2025 12:30 PM EDT) Fentanyl, Urine Negative Negative 02/05/2025 12:46 PM EDT [facility] Urine Urine specimen obtained by clean catch procedure / Unknown Collection / Unknown 02/05/2025 12:30 PM EDT 02/05/2025 12:34 PM EDT Narrative [facility] - 02/05/2025 12:46 PM EDT Negative Threshold: Fentanyl 5 ng/mL The normal value for the drug tested is negative. This report includes final unconfirmed screening results to be used for medical treatment purposes only. Unconfirmed results must not be used for non-medical purposes such as employment or legal testing. Clinical consideration should be applied to any drug of abuse test, particularly when unconfirmed results are used. us Raghu Mandel MD URINE ORDERABLES Final Resu lt Performing Organization Address City/[facility] Co de Phone Number [facility]
[address] [place] [address], [place] * QuantiFERON-TB Gold Plus (02/05/2025 11:42 AM EDT) QuantiFERON Criteria Comment 02/08/2025 1:09 PM EDT [facility] Comment: QuantiFERON-TB Gold Plus is a qualitative indirect test for M tuberculosis infection (including disease) and is intended for use in conjunction with risk assessment, radiography, and other medical and diagnostic evaluations. The QuantiFERON-TB Gold Plus result is determined by subtracting the Nil value from either TB antigen (Ag) value. The Mitogen tube serves as a control for the test. QUANTIFERON TB1 AG VALUE 2.24 IU/mL 02/08/2025 1:09 PM EDT [facility] QUANTIFERON TB2 AG VALUE 2.24 IU/mL 02/08/2025 1:09 PM EDT [facility] QuantiFERON Nil Value 2.32 IU/mL 02/08/2025 1:09 PM EDT [facility] QuantiFERON Mitogen Value >10.00 IU/mL 02/08/2025 1:09 PM EDT [facility] Blood Line / Unknown 02/05/2025 11 :42 AM EDT 02/05/2025 12:11 PM EDT [facility] - 02/08/2025 1:09 PM EDT Performed at: [address] [place] [id number] Ribbon Weaver: Brijesh Moncada PhD, Phone: [phone] Raghu Mandel MD LAB BLOOD ORDERABLES Final Result [facility] [address] [place] [id number], * QuantiFERON-TB Gold Plus (Li-Hep) (02/05/2025 11:42 AM EDT) [facility] QuantiFERON Incubation Incubation performed. 02/08/2025 1:09 PM EDT [facility] QUANTIFERON-TB GOLD PLUS Negative Negative 02/08/2025 1:09 PM EDT [facility] Comment: No response to M tuberculosis antigens detected. Infection with M tuberculosis is unlikely, but high risk individuals should be considered for additional testing (ATS/IDSA/CDC Clinical Practice Guidelines, 2017). The reference range is an Antigen minus Nil result of <0.35 IU/mL. Chemiluminescence immunoassay methodology Blood Line / Unknown 02/05/2025 11 :42 AM EDT 02/05/2025 12:11 PM EDT Narrative [facility] - 02/08/2025 1:09 PM EDT Performed at: [address] [place], [place] [address] [place], [place] [id number] Ribbon Weaver: Brijesh Moncada PhD, Phone: [phone] Raghu Mandel MD LAB BLOOD ORDERABLES Final Result [facility] [address] [place] [address], * (ABNORMAL) CBC Auto Differential (02/05/2025 11:42 AM EDT) WBC 4.82 3.40 - 10.80 10*3/mm3 02/06/2025 7:41 AM EDT [facility] RBC 3.39(L) 3.77 - 5.28 10*6/mm3 02/06/2025 7:41 AM EDT [facility] Hemoglobin 10.8(L) 12.0 - 15.9 g/dL 02/06/2025 7:41 AM EDT [facility] Hematocrit 34.0 34.0 - 46.6 % 02/06/2025 7:41 AM EDT [facility] MCV 100.3(H) 79.0 - 97.0 fL 02/06/2025 7:41 AM EDT [facility] MCH 31.9 26.6 - 33.0 pg 02/06/2025 7:41 AM EDT [facility] MCHC 31.8 31.5 - 35.7 g/dL 02/06/2025 7:41 AM EDT [facility] RDW 13.6 12.3 - 15.4 % 02/06/2025 7:41 AM EDT [facility] RDW-SD 49.1 37.0 - 54.0 fl 02/06/2025 7:41 AM EDT [facility] MPV 11.3 6.0 - 12.0 fL 02/06/2025 7:41 AM EDT [facility] Platelets 268 140 - 450 10*3/mm3 02/06/2025 7:41 AM EDT [facility] Neutrophil % 51.5 42.7 - 76.0 % 02/06/2025 7:41 AM [facility] Lymphocyte % 30.1 19.6 - 45.3 % 02/06/2025 7:41 AM [facility] Monocyte % 13.3(H) 5.0 - 12.0 % 02/06/2025 7:41 [facility] Eosinophil % 3.9 0.3 - 6.2 % 02/06/2025 7:41 AM [facility] Basophil % 1.0 0.0 - 1.5 % 02/06/2025 7:41 AM [facility] Immature Grans % 0.2 0.0 - 0.5 % 02/06/2025 7:41 AM [facility] Neutrophils, Absolute 2.48 1.70 - 7.00 10*3/mm3 02/06/2025 7:41 AM [facility] Lymphocytes, Absolute 1.45 0.70 - 3.10 10*3/mm3 02/06/2025 7:41 AM [facility] Monocytes, Absolute 0.64 0.10 - 0.90 10*3/mm3 02/06/2025 7:41 AM [facility] Eosinophils, Absolute 0.19 0.00 - 0.40 10*3/mm3 02/06/2025 7:41 AM [facility] Basophils, Absolute 0.05 0.00 - 0.20 10*3/mm3 02/06/2025 7:41 AM [facility] Immature Grans, Absolute 0.01 0.00 - 0.05 10*3/mm3 02/06/2025 7:41 AM [facility] nRBC 0.0 0.0 - 0.2 /100 WBC 02/06/2025 7:41 AM [facility] Blood Venipuncture / Unknown 02/05/2025 11:42 AM EDT 02/06/2025 7:11 AM EDT us Raghu Mandel MD LAB BLOOD ORDERABLES Final Result Performing Organization Address City/[facility]/ZIP Co de Phone Number [facility]
[address] [place] [address], * Sedimentation Rate (02/05/2025 11:42 AM EDT) Sed Rate 26 0 - 30 mm/hr 02/06/2025 8:09 AM EDT [facility] Blood Venipuncture / Unknown 02/05/2025 11:42 AM EDT 02/06/2025 7:11 AM EDT us Raghu Mandel MD LAB BLOOD ORDERABLES Final Result Performing Organization Address [facility] Co de Phone Number [facility]
[address] [place] [address], * C-reactive Protein (02/05/2025 11:42 AM EDT) [facility] C-Reactive Protein <0.30 0.00 - 0.50 mg/dL 02/06/2025 10:15 AM EDT [facility] Blood Venipuncture / Unknown 02/05/2025 11:42 AM EDT 02/06/2025 7:11 AM EDT us Raghu Mandel MD LAB BLOOD ORDERABLES Final Result Performing Organization Address City/[facility]/ZIP Co de Phone Number [facility]
[address] [place] [address], * (ABNORMAL) Comprehensive Metabolic Panel (02/05/2025 11:42 AM EDT) Pathologist [facility] Glucose 94 65 - 99 mg/dL 02/06/2025 10:17 AM EDT [facility] BUN 11.6 8.0 - 23.0 mg/dL 02/06/2025 10:17 AM EDT [facility] Creatinine 0.77 0.57 - 1.00 mg/dL 02/06/2025 10:17 AM [facility] Sodium 141 136 - 145 mmol/L 02/06/2025 10:17 AM [facility] Potassium 5.1 3.5 - 5.2 mmol/L 02/06/2025 10:17 AM [facility] Comment:Specimen hemolyzed. Result may be falsely elevated. Chloride 100 98 - 107 mmol/L 02/06/2025 10:17 AM [facility] CO2 17.4(L) 22.0 - 29.0 mmol/L 02/06/2025 10:17 AM [facility] Calcium 8.4(L) 8.6 - 10.5 mg/dL 02/06/2025 10:17 AM [facility] Total Protein 6.8 6.0 - 8.5 g/dL 02/06/2025 10:17 AM [facility] Albumin 4.0 3.5 - 5.2 g/dL 02/06/2025 10:17 AM [facility] ALT (SGPT) 31 1 - 33 U/L 02/06/2025 10:17 AM [facility] AST (SGOT) 30 1 - 32 U/L 02/06/2025 10:17 AM [facility] Alkaline Phosphatase 80 39 - 117 U/L 02/06/2025 10:17 AM [facility] Total Bilirubin 0.2 0.0 - 1.2 mg/dL 02/06/2025 10:17 AM [facility] Globulin 2.8 gm/dL 02/06/2025 10:17 AM [facility] Comment:Calculated Result A/G Ratio 1.4 g/dL 02/06/2025 10:17 AM [facility] BUN/Creatinine Ratio 15.1 7.0 - 25.0 02/06/2025 10:17 AM [facility] Anion Gap 23.6(H) 5.0 - 15.0 mmol/L 02/06/2025 10:17 AM EDT [facility] eGFR 81.6 >60.0 mL/min/1.7 3 02/06/2025 10:17 AM EDT [facility] Blood Venipuncture / Unknown 02/05/2025 11:42 AM EDT 02/06/2025 7:11 AM EDT Narrative [facility] - 02/06/2025 10:17 AM EDT GFR Categories in Chronic Kidney Disease (CKD) GFR Category GFR (mL/min/1.73) Interpretation G1 90 or greater Normal or high (1) G2 60-89 Mild decrease (1) G3a 45-59 Mild to moderate decrease G3b 30-44 Moderate to severe decrease G4 15-29 Severe decrease G5 14 or less Kidney failure (1)In the absence of evidence of kidney disease, neither GFR category G1 or G2 fulfill the criteria for CKD. eGFR calculation 2020 CKD-EPI creatinine equation, which does not include race as a factor us Raghu Mandel MD LAB BLOOD ORDERABLES Final Result [facility]
[address] [place] [address], * DEXA Scan (06/18/2024) Anatomical Region Laterality Modality Other us Raghu Mandel MD CHART REVIEW TABS Final Result * Hepatitis Panel, Acute (01/05/2024 3:51 PM EDT) Hepatitis B Surface Ag Non-Reacti ve Non-Reacti ve 01/05/2024 11:38 PM EDT [facility] Hep A IgM Non-Reacti ve Non-Reacti ve 01/05/2024 11:38 PM EDT [facility] Hep B C IgM Non-Reacti ve Non-Reacti ve 01/05/2024 11:38 PM EDT [facility] Hepatitis C Ab Non-Reacti ve Non-Reacti ve 01/05/2024 11:38 PM EDT [facility] Blood Venipuncture / Unknown 01/05/2024 3:51 PM EDT 01/05/2024 3:58 PM EDT Narrative [facility] - 01/05/2024 11:38 PM EDT Results may be falsely decreased if patient taking Biotin. us Cary Novoa AGRICULTURAL SYSTEMS SPECIALIST LAB BLOOD ORDERABLES Final Res ult [facility]
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
--- OUTSIDE RECORDS SUMMARY | 2025-04-11 11:31 | XMS_ITS | Encounter Summary ---
Author Organization [facility] Address [address] [place] [address] Care Team Providers Care Research & Insights Executive Name Role Phone Jeanmarie [place] VIRIDIANA Primary Care Provider [phone] Encounter Details Date Type Department Care Team (Late Contact Info) Description 08/27/2024 Telephone [facility] [address] [facility] [address] [place] [phone] Sage Quesada PT [address] [facility] [address] [place], [place] [id number] Social History Tobacco Use Types Packs/Day Years [...] Info) Description 04/30/2025 11:30 AM EDT Appointment [facility] [place] [address] [facility] [address] [place] [address] 05/05/2025 1:30 PM EDT Office Visit [facility] RHEUMATOLOGY [address] [phone] Raghu Mandel MD [address] [place] [phone] 06/24/2025 9:00 AM EST Appointment [facility] RHEUMATOLOGY [place]EX[place] [address] [phone] 06/24/2025 9:30 AM EST Office Visit [facility] RHEUMATOLOGY [address] [place] [phone] Raghu Mandel MD [address] [place] [phone] documented as of this encounter Visit Diagnoses Not on filedocumented in this encounter Care Teams Research & Insights Executive Relationship Specialty Start Date End Date Makeda Murry PA PCP - General 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
== END 2025-04-09 23:59 ==
LOC: LAB.DROPOF 04-11 11:28
PROVIDERS: PCP Family Medicine; Visit Provider Student in an Organized Health Care Education/Training Program
DX: J06.9 Acute upper respiratory infection, unspecified (principal)
CPT/HCPCS: 87636